=== PATIENT | male | born 1980 | race Caucasian/White ===

== ENCOUNTER → 2020-08-29 09:14 | Outpatient (BNVA) | payer MEDICAID, SELFPAY | PROVIDERS: PCP Internal Medicine; Referring Provider Internal Medicine; Visit Provider Physician Assistant | DX: Z76.89 Persons encountering health services in other specified circumstances (principal) ==

== ENCOUNTER 2020-09-06 07:36 | Outpatient (REF) | payer MEDICAID, SELFPAY ==
[2020-09-06 10:58] LABS: Alanine Aminotransferase 34 U/L (0-40); Albumin Level 4.3 g/dL (3.5-5.0); Alkaline Phosphatase 72 U/L (39-117); Anion Gap 10 (12-20); Aspartate Amino Transferase 21 U/L (5-37); Bilirubin Total 0.9 mg/dL (0.0-1.0); Blood Urea Nitrogen 20 mg/dL (9-16); Calcium 8.9 mg/dL (8.4-10.2); Carbon Dioxide 27 mmol/L (22-29); Chloride 107 mmol/L (96-108); Estimated Glomerular Filt Rate > 60; Glucose Random 98 mg/dL (60-115); Potassium 4.4 mmol/l (3.3-5.1); Rheumatoid Factor < 15.0 IU/mL (<15.0); Sodium 140 mmol/L (135-145); Total Protein 6.6 g/dL (6.5-8.0)
[2020-09-06 11:19] LABS: Thyroid Stimulating Hormone 0.61 uIU/mL (0.32-4.0)
[2020-09-06 11:28] LABS: Erythrocyte Sedimentation Rate 5 MM/HR (0-15)
[2020-09-08 11:47] LABS: CRP High Sensitivity 0.6 mg/L
== END 2020-09-06 07:37 | disposition home or self-care (01) ==
LOC: HO.WFDLDS 07:36
PROVIDERS: Visit Provider Physician Assistant
DX: Z20.828 Contact with and (suspected) exposure to other viral communicable diseases (principal); R19.7 Diarrhea, unspecified; R10.11 Right upper quadrant pain; M25.50 Pain in unspecified joint; K59.09 Other constipation
CPT/HCPCS: 36415; 80053; 84443; 85652; 86141; 86431; C9803; U0003

== ENCOUNTER 2020-09-19 09:45 | Outpatient (REF) | payer MEDICAID, SELFPAY ==
--- NOTE | 2020-09-19 10:11 | FL_ITS ---
EXAMINATION: XR GI SERIES CLINICAL INFORMATION: Epigastric pain. COMPARISON: None. TECHNIQUE: Routine upper GI air-contrast study was performed in the upright and lying positions. FINDINGS: Following oral administration of thick barium and effervescent granules in upright views, there is normal propagation of bolus from the oral cavity through the pharynx and esophagus and into the stomach without any obstruction, narrowing or stricture. No laryngeal penetration or aspiration seen. No intrinsic lesion or extrinsic compression seen. On placing patient supine and prone lying, the course, caliber and peristalsis of the stomach are normal. There is increased secretion and flocculation of barium with mucosal irregularity throughout the stomach, likely from hyperacidity. No ulceration seen. The duodenal bulb and the C-loop are normal in their course and caliber. The mucosal pattern of the duodenum is normal. No gastroesophageal reflux or hiatal hernia seen. There are surgical logan along the anterior midline lower chest wall, likely from benign tumor resection. FLUOROSCOPY TIME: 1.9 minutes DOSE AREA PRODUCT: 63.2 uGy-m2 (microgray-meter squared) FL/FL upper GI series IMPRESSION: Significant hyperacidity with secretions and flocculation of barium but no evidence of gastric or duodenal erosion or ulceration. No gastroesophageal reflux or hiatal hernia seen.
== END 2020-09-19 09:46 | disposition home or self-care (01) ==
LOC: HO.XRAY 09:45
PROVIDERS: PCP Internal Medicine; Visit Provider Physician Assistant
DX: R10.13 Epigastric pain (principal)
CPT/HCPCS: 74240

== ENCOUNTER → 2020-10-03 15:18 | Outpatient (BNVA) | payer MEDICAID, SELFPAY | PROVIDERS: PCP Internal Medicine; Visit Provider Physician Assistant | DX: Z76.89 Persons encountering health services in other specified circumstances (principal) ==

== ENCOUNTER 2020-10-08 09:47 | Day surgery (SDC) | payer MEDICAID, SELFPAY ==
[2020-10-08 10:46] VITALS: BP 134/87; PULSE 72; RESP 18; TEMP 36.4; O2SAT 100; BMI 38.3
[2020-10-08] MEDS: Lactated Ringers 1,000 ML 50 ML IVCONT (11:01)
--- NOTE | 2020-10-08 11:03 | MHC.SHP ---
Pre-Procedural Eval Section B Chief Complaint: epigastric pain Relevant Family History (Specify if Yes): No Relevant Social History: None Present Medications: see Short Stay Collaborative assessment Medical History: Significant History (Chronic recurrent pilonidal cyst Epigastric abdominal pain Joint pain Stomach tumor (benign)) History of Previous Operations: No relevant previous surgery Allergies: Allergies Allergy/AdvReac Type Severity Reaction Status Date / Time No Known Allergies Allergy Verified 10/08/20 10:43 [No Known Allergies*] Review of Systems Sugical H&P ROS: Negative: Constitution, Cardiovascular, Respiratory, Neurological, Psychiatric, Hem-Onc, Allergic/Immunologic, Gastrointestinal, Genitourinary, Musculoskeletal, Integumentary, Endocrine and Eyes/Ears/Nose/Throat Exam Surgical H&P Exam: Normal: HEENT, Normal: Heart, Normal: Lungs, Normal: Extremities, Normal: Abdomen, Normal: Skin and Normal: Neurological Plan Diagnosis/Plan: Unchanged I have reviewed the history and physical and performed a pertinent physical examination on my patient. No changes have occurred unless specified.
--- NOTE | 2020-10-08 11:58 | P.CONAN_ITS ---
[facility] Past Medical History Medical History Chronic recurrent pilonidal cyst Epigastric abdominal pain Joint pain Stomach tumor (benign) Family History Family History Father No problems noted. Mother Diabetes Social History Social History Household Members: Spouse and Children Alcohol intake: never Smoking Status: Never smoker Use of substances other than those prescribed or required for medical reasons: No Advance Directives: No Advance Directives Information Provided: No 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al status: unemployed Meds Allergies Allergy/AdvReac Type Severity Reaction Status Date / Time No Known Allergies Allergy Verified 10/08/20 10:43 [No Known Allergies*] Home Medications Medication Instructions Recorded Confirmed Type escitalopram oxalate 5 mg tablet 5 mg PO DAILY 08/29/20 08/29/20 History Exam Exam Date and Time: October 08, 2020 1158 Height,Weight and Vital Signs: Height 5 ft 7 in Weight 111.13 kg Last Vital Signs Temp 97.5 F 10/08/20 10:46 Pulse 72 10/08/20 10:46 Resp 18 10/08/20 10:46 BP 134/87 10/08/20 10:46 Pulse Ox 100 10/08/20 10:46 Airway Mallampati Class: II TM Dist: >3cm Neck ROM: Full Loose/Missing/Broken Teeth: No Heart: RRR Lungs: CTA Assessment and Plan Assessment Anesthesia Assessment: Anesthesia Plan Discussed and Chart Reviewed Final Anesthetic Review NPO: Yes ASA Class: II Final Preanesthetic Review: Meds/Allgs Chart Reviewed, Consent Obtained/Reviewed and Anes Risks/Benef Reviewed Patient Risk: Low Procedure Risk: Intermediate Anesthetic Plan Anesthetic Plan: MAC: Disposition: Standard PACU
--- NOTE | 2020-10-08 12:20 | PM.OP ---
Brief Operative Note Date of Service: 10/08/20 Pre-op diagnosis: epigastric pain Post-op diagnosis: same Procedure: Procedure Description: EGD FLEXIBLE TRANSORAL UPPER GASTROINTESTINAL ENDOSCOPY UPPER ENDOSCOPY Consent: Indications for the procedure and potential complications of bleeding, perforation, reaction to medications and missed diagnosis were discussed with the patient and informed consent was obtained. Instrument: Olympus GIF H 190 J mid size upper endoscope Monitoring: Vital signs and clinical assessment, continuous EKG monitoring, Pulse oximetry, Carbon Dioxide monitoring and blood pressure monitoring were done throughout the procedure. Procedure: The patient was placed in the left lateral decubitis position and pre-procedure medications were administered and a bite block was placed. The endoscope was inserted into the mouth and advanced under direct vision to the third part of duodenum. A careful inspection was made as the upper endoscope was withdrawn including a retroflexed examination of the proximal stomach; Findings and interventions are described below. Findings: Larynx:normal Esophagus: GE junction at 40 cm, diaphragm hiatus at 40 cm, erosive esophagitis LA grade B, one tongue of salmon pink tissue suspected barretts, bx taken. LEs very lax. Stomach: Patchy gastric erythema. Biopsies were obtained. Grade 3 flap valve on retroflexed examination of the cardia. Duodenum: bulbar duodenitis with villous atrophy probably from peptic injury, bx taken, second part of duodenum looked normal, bulb was quite long Intervention: Biopsies as noted above Impression/Findings: possible barretts erosive esophagitis lax LES duodenitis PLAN: reflux precautions, incl lifestyle and diet changes PPI-if already taking then change or increase dose, check for compliance if h pylori pos then treat Surgeon: Heather Alvarez MD Anesthesia: MAC Estimated blood loss (mL): 0 Condition: stable Disposition: PACU
[2020-10-08 12:25] VITALS: BP 93/44; PULSE 88; RESP 22; TEMP 36.7; O2SAT 99
[2020-10-08 12:40] VITALS: BP 96/45; PULSE 76; RESP 20; O2SAT 100
[2020-10-08 12:54] VITALS: BP 105/55; PULSE 87; RESP 20; O2SAT 97
--- NOTE | 2020-10-08 12:57 | HO.POSTANES ---
Post Anesthesia Evaluation Post Anesthesia Evaluation Vital Signs: Vital Signs Temp Pulse Resp BP Pulse Ox 10/08/20 12:54 87 20 105/55 L 97 10/08/20 12:40 76 20 96/45 L 100 10/08/20 12:25 98.0 F 88 22 H 93/44 L 99 10/08/20 10:46 97.5 F 72 18 134/87 100 Anesthesia: Monitored Mental Status: Awake Pain Control: Satisfactory Nausea/Vomiting: None Hydration: Adequate Anesthesia-Related Issues: No Anes. Related Issues
== END 2020-10-08 13:17 | disposition home or self-care (01) ==
PROVIDERS: Visit Provider Internal Medicine Gastroenterology
PROC: 0DJ08ZZ Inspection of Upper Intestinal Tract, Via Natural or Artificial Opening Endoscopic (ICD-10-PCS; CPT 43235; principal; 2020-10-08 12:20)
DX: K21.00 Gastro-esophageal reflux disease with esophagitis, without bleeding (principal); K29.50 Unspecified chronic gastritis without bleeding; K29.80 Duodenitis without bleeding; K44.9 Diaphragmatic hernia without obstruction or gangrene; Z79.899 Other long term (current) drug therapy
CPT/HCPCS: 43239; 88305; 88342

== ENCOUNTER → 2020-10-22 14:21 | Outpatient (BNVA) | payer MEDICAID, SELFPAY | PROVIDERS: Visit Provider Physician Assistant ==

== ENCOUNTER 2020-10-26 11:21 | Outpatient (REF) | payer MEDICAID, SELFPAY ==
[2020-10-26 16:20] LABS: Rheumatoid Factor < 15.0 IU/mL (<15.0); Uric Acid 5.3 mg/dL (3.4-7.0)
[2020-10-26 16:40] LABS: Ferritin 66 ng/mL (20-250)
[2020-10-26 16:46] LABS: Erythrocyte Sedimentation Rate 7 MM/HR (0-15)
[2020-10-27 08:17] LABS: Lyme Abs Screen <0.90 index
[2020-10-27 20:52] LABS: Anti Nuclear Antibody Screen NEGATIVE (NEGATIVE)
== END 2020-10-26 11:22 | disposition home or self-care (01) ==
LOC: HO.WFDLDS 11:21
PROVIDERS: Visit Provider Internal Medicine
DX: M13.0 Polyarthritis, unspecified (principal)
CPT/HCPCS: 36415; 82728; 84550; 85652; 86038; 86039; 86140; 86431; 86618

== ENCOUNTER → 2020-10-30 13:36 | Outpatient (BNVA) | payer MEDICAID, SELFPAY | PROVIDERS: PCP Internal Medicine; Visit Provider Internal Medicine Gastroenterology | DX: Z11.0 Encounter for screening for intestinal infectious diseases (principal) | CPT/HCPCS: 83013; 99211 ==

== ENCOUNTER 2020-11-28 07:07 | Outpatient (REF) | payer MEDICAID, SELFPAY ==
[2020-11-28 11:19] LABS: MANUAL DIFF FLAG NO
[2020-11-28 11:34] LABS: Basophils Absolute Auto 0.1 X10*3/uL (0.0-0.2); Basophils Percent Auto 0.8 % (0-2); Eosinophils Absolute Auto 0.3 X10*3/uL (0.0-0.4); Eosinophils Percent Auto 3.1 % (0-4); Hematocrit 42.1 % (42-52); Hemoglobin 14.5 g/dl (14.0-18.0); Imm Gran Abs Auto 0.03 X10*3/uL (0.00-0.03); Imm Gran Pct Auto 0.4 % (0.0-0.4); Lymphocytes Absolute Auto 1.7 X10*3/uL (1.2-4.9); Lymphocytes Percent Auto 20.1 % (20-40); Mean Corpuscular HGB Conc 34.4 g/dl (31.0-36.0); Mean Corpuscular Hemoglobin 30.9 pg (27.0-33.0); Mean Corpuscular Volume 89.6 fL (80-98); Mean Platelet Volume 10.9 fL (9.4-12.4); Monocytes Absolute Auto 0.7 X10*3/uL (0.1-1.2); Monocytes Percent Auto 8.7 % (2-11); Neutrophils Absolute Auto 5.6 X10*3/uL (2.0-8.3); Neutrophils Percent Auto 66.9 % (45-73); Platelet Count 198 X10*3/uL (160-400); White Blood Count 8.3 X10*3/uL (4.8-10.8)
== END 2020-11-28 07:08 | disposition home or self-care (01) ==
LOC: HO.WFDLDS 07:07
PROVIDERS: Visit Provider Physician Assistant
DX: K62.5 Hemorrhage of anus and rectum (principal); R74.01 Elevation of levels of liver transaminase levels
CPT/HCPCS: 36415; 85025

== ENCOUNTER → 2020-12-04 11:12 | Outpatient (BNVA) | payer MEDICAID, SELFPAY | PROVIDERS: PCP Internal Medicine; Visit Provider Physician Assistant ==

== ENCOUNTER 2020-12-17 12:25 | Day surgery (SDC) | payer MEDICAID, SELFPAY ==
--- NOTE | 2020-12-14 10:22 | HO.ANESPROP2 ---
Documented by User: Ann Ng 12/14/20 10:23 HPI - Anesthesia Eval Consult details Narrative: 40yo M for Colonoscopy s/p EGD with MAC 10/2020 [facility] Active Problems Active Problems: All Active Problems (Updated 12/04/20 @ 11:47 by Yuli [place] PA-C) Rectal bleeding (Acute) Periumbilical pain (Acute) Joint pain (Acute) Epigastric abdominal pain (Acute) Past Medical History Medical History (Updated 12/17/20 @ 13:17 by Ana Luisa Ocampo) Anxiety and depression Chronic recurrent pilonidal cyst Epigastric abdominal pain GERD (gastroesophageal reflux disease) Joint pain Stomach tumor (benign) Family History Family History Father No problems noted. Mother Diabetes Surgical History Surgical History History of esophagogastroduodenoscopy (EGD) Social History Social History Household Members: Spouse and Children Alcohol intake: never Smoking Status: Never smoker Use of substances other than those prescribed or required for medical reasons: No Have you been hit, kicked, punched, or otherwise hurt by someone within the past year? If so, by whom?: No Advance Directives: No Advance Directives Information Provided: Yes 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al status: unemployed Meds Allergies Allergy/AdvReac Type Severity Reaction Status Date / Time No Known Allergies Allergy Verified 12/11/20 11:56 [No Known Allergies*] Home Medications Medication Instructions Recorded Confirmed Last Taken Type escitalopram oxalate 5 mg tablet 5 mg PO DAILY 08/29/20 12/11/20 Unknown History Exam Exam Date and Time: December 14, 2020 1022 Pertinent Lab Results Pertinent Lab Results: Laboratory Tests 09/06/20 11/28/20 06:30 07:15 WBC 8.3 Hgb 14.5 Hct 42.1 Plt Count 198 Sodium 140 Potassium 4.4 Chloride 107 Carbon Dioxide 27 BUN 20 H Creatinine 1.29 Assessment and Plan Assessment Anesthesia Assessment: Chart Reviewed Documented by User: Ana Luisa Ocampo 12/17/20 13:18 [facility] Past Medical History Medical History (Updated 12/17/20 @ 13:17 by An aLuisa Ocampo) Anxiety and depression Chronic recurrent pilonidal cyst Epigastric abdominal pain GERD (gastroesophageal reflux disease) Joint pain Stomach tumor (benign) Family History Family History Father No problems noted. Mother Diabetes Family history of problems with anesthesia: No Surgical History Surgical History History of esophagogastroduodenoscopy (EGD) History of Problems with Anesthesia: No Social History Social History Household Members: Spouse and Children Alcohol intake: never Smoking Status: Never smoker Use of substances other than those prescribed or required for medical reasons: No Have you been hit, kicked, punched, or otherwise hurt by someone within the past year? If so, by whom?: No Advance Directives: No Advance Directives Information Provided: Yes 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al status: unemployed Meds Allergies Allergy/AdvReac Type Severity Reaction Status Date / Time No Known Allergies Allergy Verified 12/11/20 11:56 [No Known Allergies*] Home Medications Medication Instructions Recorded Confirmed Last Taken Type escitalopram oxalate 5 mg tablet 5 mg PO DAILY 08/29/20 12/11/20 Unknown History Exam Height,Weight and Vital Signs: Vital Signs Temp Pulse Resp BP Pulse Ox 12/17/20 12:40 97.6 F 85 18 139/58 L 97 Airway Mallampati Class: II TM Dist: >3cm Neck ROM: Full Heart: RRR Lungs: CTAB Assessment and Plan Assessment Anesthesia Assessment: Anesthesia Plan Discussed and Chart Reviewed Final Anesthetic Review NPO: Yes ASA Class: II Final Preanesthetic Review: No Changes in Pt Med Stat, Meds/Allgs Chart Reviewed, Consent Obtained/Reviewed and Anes Risks/Benef Reviewed Patient Risk: Low Procedure Risk: Low Assessment/Block/Sedation in SS: Assess/Block/Sedation-SS Anesthetic Plan Anesthetic Plan: MAC: Disposition: Standard PACU
[2020-12-17 12:39] VITALS: BMI 36.8
[2020-12-17 12:40] VITALS: BP 139/58; PULSE 85; RESP 18; TEMP 36.4; O2SAT 97
[2020-12-17] MEDS: Lactated Ringers 1,000 ML 100 ML IVCONT (12:55)
--- NOTE | 2020-12-17 13:48 | P.HPSUR_ITS ---
Pre-Procedural Eval Section B Chief Complaint: rectal bleeding,periumbilical pain Relevant Family History (Specify if Yes): No Relevant Social History: None Present Medications: see Short Stay Collaborative assessment Medical History: Significant History (Anxiety and depression Chronic recurrent pilonidal cyst Epigastric abdominal pain GERD (gastroesophageal reflux disease) Joint pain Stomach tumor (benign)) History of Previous Operations: Relevant previous surgery/procedure and date(s) (egd) Allergies: Allergies Allergy/AdvReac Type Severity Reaction Status Date / Time No Known Allergies Allergy Verified 12/11/20 11:56 [No Known Allergies*] Review of Systems Sugical H&P ROS: Negative: Constitution, Cardiovascular, Respiratory, Neurological, Psychiatric, Hem-Onc, Allergic/Immunologic, Gastrointestinal, Genitourinary, Musculoskeletal, Integumentary, Endocrine and Eyes /Ears/Nose/Throat Exam Surgical H&P Exam: Normal: HEENT, Normal: Heart, Normal: Lungs, Normal: Extremities, Normal: Abdomen, Normal: Skin and Normal: Neurological Plan Diagnosis/Plan: Unchanged I have reviewed the history and physical and performed a pertinent physical examination on my patient. No changes have occurred unless specified.
--- NOTE | 2020-12-17 13:50 | PM.OP ---
Brief Operative Note Date of Service: 12/17/20 Pre-op diagnosis: rectal bleeding Post-op diagnosis: same Procedure: see op note Surgeon: Heather Alvarez MD Anesthesia: MAC Estimated blood loss (mL): 0 Condition: stable Disposition: PACU
--- NOTE | 2020-12-17 13:50 | W.PM.OPN ---
Operative Note Operative Note Date of Service: 12/17/20 Narrative: Operative Information Procedure Description: Colonoscopy COLONOSCOPY Instrument: Olympus variable stiffness pediatric scope 190L Colonoscopy Monitoring: Vital signs and clinical assessment, continuous EKG monitoring, Pulse oximetry, Carbon Dioxide monitoring and blood pressure monitoring were done throughout the procedure. Colon withdrawal time was 8 minutes. Procedure: The patient was placed in the left lateral decubitis position and pre-procedure medications were administered. After a digital rectal examination of the ano-rectum, the video colonoscope was inserted into the rectum and advanced through the colon to the cecum/TI. The colonoscope was slowly withdrawn in a retrograde panoramic fashion and the colon mucosa was carefully examined including a retroflexed view of the rectum. Findings and interventions are described below. Procedure Difficulty:easy Findings: Terminal Ileum-normal Cecum:normal Ascending Colon: on retroflexion 10 mm sessile polyp removed with cold snare but not retrieved. Transverse Colon -normal Descending Colon:normal Sigmoid Colon: 12-14 mm pedunculated polyp removed with cold snare and then 1 clip applied to post polypectomy site with cessation of bleeding Rectum: Retroflexion with small internal hemorrhoids, grade I Anorectum - normal Colon preparation: [place] Bowel Preparation Scale Right colon; 2 Transverse colon: 3 Left colon; 2 (0 = Unprepared colon segment with mucosa not seen due to solid stool that cannot be cleared. 1 = Portion of mucosa of the colon segment seen, but other areas of the colon segment not well seen due to staining, residual stool and/or opaque liquid. 2 = Minor amount of residual staining, small fragments of stool and/or opaque liquid, but mucosa of colon segment seen well. 3 = Entire mucosa of colon segment seen well with no residual staining, small fragments of stool or opaque liquid) Impression and Post Procedure Diagnosis: polyps internal hemorrhoids Plan: High fiber diet leaflet Avoid straining at stool, epsom salts and sitz bath, anusol supps or cream as needed Repeat Colonoscopy in 1-2 years or earlier if clinically indicated Above findings were reviewed with the patient and relevant handouts were provided if indicated.
[2020-12-17 14:25] VITALS: BP 98/51; PULSE 83; RESP 16; TEMP 36.4; O2SAT 100
[2020-12-17 14:40] VITALS: BP 119/75; PULSE 88; RESP 18; O2SAT 99
[2020-12-17 14:54] VITALS: TEMP 36.6
== END 2020-12-17 15:09 | disposition home or self-care (01) ==
PROVIDERS: PCP Internal Medicine; Visit Provider Internal Medicine Gastroenterology
PROC: 0DJD8ZZ Inspection of Lower Intestinal Tract, Via Natural or Artificial Opening Endoscopic (ICD-10-PCS; CPT 45378; principal; 2020-12-17 13:10)
DX: K62.5 Hemorrhage of anus and rectum (principal); D12.5 Benign neoplasm of sigmoid colon; K63.5 Polyp of colon; K64.0 First degree hemorrhoids; K21.9 Gastro-esophageal reflux disease without esophagitis; Z79.899 Other long term (current) drug therapy
CPT/HCPCS: 45385; 88305

== ENCOUNTER → 2021-01-07 11:27 | Outpatient (BNVA) | payer MEDICAID, SELFPAY | PROVIDERS: PCP Internal Medicine; Visit Provider Physician Assistant ==

== ENCOUNTER 2021-01-29 12:29 | Outpatient (REF) | payer MEDICAID, SELFPAY ==
--- NOTE | ~2021-01-29 | XR_ITS ---
EXAMINATION: 1. RADIOGRAPHS LEFT SHOULDER 2. RADIOGRAPHS LUMBAR SPINE CLINICAL INFORMATION: Pain COMPARISON: None TECHNIQUE: 4 views of the left shoulder and 3 views of the lumbar spine were obtained FINDINGS: Left shoulder: Visualized portions of the proximal left humerus demonstrate no fracture. Humeral head demonstrates good articulation with the glenoid fossa. Acromioclavicular joint is normal in appearance without appreciable degenerative changes. Visualized left-sided ribs and lung parenchyma are unremarkable. Lumbar spine: There are 4 nonrib-bearing lumbar-type vertebral bodies are visualized. Normal alignment of the lumbar spine. Vertebral body heights and disc spaces are maintained throughout the lumbar spine. Sacroiliac joints are symmetric. Surgical clips project over the mid upper abdomen. XR/XR lumbar spine 2-3V IMPRESSION: 1. Unremarkable radiographs of the left shoulder. 2. Unremarkable radiograph of the lumbar spine.
--- NOTE | ~2021-01-29 | XR_ITS ---
EXAMINATION: 1. RADIOGRAPHS LEFT SHOULDER 2. RADIOGRAPHS LUMBAR SPINE CLINICAL INFORMATION: Pain COMPARISON: None TECHNIQUE: 4 views of the left shoulder and 3 views of the lumbar spine were obtained FINDINGS: Left shoulder: Visualized portions of the proximal left humerus demonstrate no fracture. Humeral head demonstrates good articulation with the glenoid fossa. Acromioclavicular joint is normal in appearance without appreciable degenerative changes. Visualized left-sided ribs and lung parenchyma are unremarkable. Lumbar spine: There are 4 nonrib-bearing lumbar-type vertebral bodies are visualized. Normal alignment of the lumbar spine. Vertebral body heights and disc spaces are maintained throughout the lumbar spine. Sacroiliac joints are symmetric. Surgical clips project over the mid upper abdomen. XR/XR shoulder LT min 2V IMPRESSION: 1. Unremarkable radiographs of the left shoulder. 2. Unremarkable radiograph of the lumbar spine.
[2021-01-30 09:36] LABS: Lyme Abs Screen <0.90 index
[2021-01-30 12:56] LABS: Cyclic Citrullinated Peptide <16 UNITS
[2021-02-04 12:47] LABS: Vitamin D 25-OH, D2 <4 ng/mL; Vitamin D 25-OH, D3 15 ng/mL; Vitamin D 25-OH, Total 15 ng/mL (30-100)
== END 2021-01-29 12:30 | disposition home or self-care (01) ==
LOC: HO.LAB 12:29
PROVIDERS: PCP Internal Medicine; Visit Provider Student in an Organized Health Care Education/Training Program
DX: M25.50 Pain in unspecified joint (principal); M13.0 Polyarthritis, unspecified
CPT/HCPCS: 36415; 72100; 73030; 82306; 86200; 86617; 86618; 99202

== ENCOUNTER → 2021-03-01 08:57 | Outpatient (BNVA) | payer MEDICAID, SELFPAY | PROVIDERS: PCP Internal Medicine; Visit Provider Surgery | DX: D17.1 Benign lipomatous neoplasm of skin and subcutaneous tissue of trunk (principal) | CPT/HCPCS: 99202 ==

== ENCOUNTER → 2021-03-07 15:38 | Outpatient (BNVA) | payer MEDICAID, SELFPAY | PROVIDERS: Visit Provider Student in an Organized Health Care Education/Training Program | DX: M25.50 Pain in unspecified joint (principal) | CPT/HCPCS: 99212 ==

== ENCOUNTER 2021-03-21 07:49 | Outpatient (REF) | payer MEDICAID, SELFPAY ==
[2021-03-21 07:54] VITALS: BMI 36.8
[2021-03-21 07:55] VITALS: BP 135/65; PULSE 88; RESP 16; TEMP 36.4; O2SAT 99
--- NOTE | 2021-03-21 09:00 | MHC.SHP ---
Pre-Procedural Eval Section A The patient is an INPATIENT: No Changes since office visit: No Cold of Flu in the past 2 weeks, No New Medical Problems, No Changes in Medication and No Patient answered all questions The History & Physical has been completed within 30 days and I have reviewed it.: Yes Section B Chief Complaint: Lipoma of Back Allergies: Allergies Allergy/AdvReac Type Severity Reaction Status Date / Time No Known Allergies Allergy Verified 03/07/21 15:51 [No Known Allergies*] Plan Diagnosis/Plan: Unchanged I have reviewed the history and physical and performed a pertinent physical examination on my patient. No changes have occurred unless specified.
--- NOTE | 2021-03-21 09:01 | W.PM.OPN ---
Operative Note Operative Note Date of Service: 03/21/21 Narrative: Preoperative diagnosis: Lipoma left lower back Postoperative diagnosis: Same Procedure: Excision of lipoma left lower back Surgeon: Davey Man MD Chicken Boner: No physician Anesthesia: Local Indications for procedure: 40-year-old male patient with a painful lump in the lower back and previous history of lipomas. On examination patient has a 2 cm round soft tissue mass mobile within the subcutaneous tissue suggestive of a lipoma. Operative findings: 1.5 cm round fatty collections suggestive of a lipoma Specimen: Lipoma left lower back Estimated blood loss: 2 mL Complications: None Procedure details: Patient was brought to the minor surgery suite and placed in a prone position. The site of surgery was confirmed by the patient and informed consent confirmed. Skin was then prepped with Betadine and draped in a sterile fashion. Local anesthesia consisting of lidocaine 1% with epinephrine was infiltrated in a transverse fashion directly over the lipoma. A transverse incision was then created with scalpel carried down through subcutaneous tissue up to the upper surface of the lipoma. Blunt dissection was then used to free the lipoma from the surrounding subcutaneous tissue. A 1.5 cm lipoma was identified. This was completely removed and sent to pathology for further examination. Light pressure was held to maintain hemostasis. Deep subcutaneous tissue was then closed using interrupted 3-0 Polysorb sutures. Dermis was closed using interrupted 3-0 Polysorb sutures. Skin was closed using a running subcuticular 4-0 Polysorb suture. The patient tolerated the procedure well and was discharged to home in stable condition.
== END 2021-03-21 07:50 | disposition home or self-care (01) ==
LOC: HO.MS 07:49
PROVIDERS: PCP Internal Medicine; Visit Provider Surgery
PROC: (CPT 21930; principal; 2021-03-21 08:00)
DX: D17.1 Benign lipomatous neoplasm of skin and subcutaneous tissue of trunk (principal)
CPT/HCPCS: 21930; 88304

== ENCOUNTER → 2021-03-29 09:20 | Outpatient (BNVA) | payer MEDICAID, SELFPAY | PROVIDERS: PCP Internal Medicine; Visit Provider Surgery | DX: Z48.3 Aftercare following surgery for neoplasm (principal); Z86.018 Personal history of other benign neoplasm | CPT/HCPCS: 99212 ==

== ENCOUNTER 2021-05-06 07:23 | Outpatient (REF) | payer MEDICAID, SELFPAY | END 2021-05-06 07:24 | disposition home or self-care (01) | LOC: HO.WFDLDS 07:23 | PROVIDERS: Visit Provider Internal Medicine | DX: Z20.822 Contact with and (suspected) exposure to COVID-19 (principal) | CPT/HCPCS: C9803; U0003; U0005 ==

== ENCOUNTER 2021-07-25 08:43 | Outpatient (REF) | payer MEDICAID, SELFPAY ==
[2021-07-25 14:07] LABS: MANUAL DIFF FLAG NO
[2021-07-25 14:10] LABS: Basophils Percent Auto 0.5 % (0-2); Eosinophils Absolute Auto 0.2 X10*3/uL (0.0-0.4); Eosinophils Percent Auto 2.6 % (0-4); Hematocrit 42.2 % (42-52); Hemoglobin 14.4 g/dl (14.0-18.0); Imm Gran Abs Auto 0.03 X10*3/uL (0.00-0.03); Imm Gran Pct Auto 0.4 % (0.0-0.4); Lymphocytes Absolute Auto 2.3 X10*3/uL (1.2-4.9); Lymphocytes Percent Auto 28.6 % (20-40); Mean Corpuscular HGB Conc 34.1 g/dl (31.0-36.0); Mean Corpuscular Volume 90.9 fL (80-98); Mean Platelet Volume 10.4 fL (9.4-12.4); Monocytes Absolute Auto 0.8 X10*3/uL (0.1-1.2); Monocytes Percent Auto 10.3 % (2-11); Neutrophils Absolute Auto 4.6 X10*3/uL (2.0-8.3); Neutrophils Percent Auto 57.6 % (45-73); Platelet Count 210 X10*3/uL (160-400); Red Blood Count 4.64 X10*6/uL (4.60-5.80); Red Cell Distribution Width 12.3 % (11.0-16.0)
[2021-07-25 14:17] LABS: Appearance Urine CLEAR; Color Urine YELLOW; Glucose Urine UA NEG (NEG); Leukocyte Esterase Urine NEG (NEG); Nitrite Urine NEG (NEG); Specific Gravity - Urine >= 1.030 (1.005-1.025); Urine Blood NEG (NEG); Urine Ketones NEG (NEG); Urine Protein NEG (NEG-TRACE)
[2021-07-25 14:31] LABS: RBC Urine 0 /HPF (0); Squamous Epithelial Cell Urine TRACE /LPF; WBC Urine 0 /HPF (0-4)
[2021-07-25 14:32] LABS: Mucus Urine TRACE /LPF
[2021-07-25 14:35] LABS: Alanine Aminotransferase 31 U/L (0-40); Albumin Level 4.5 g/dL (3.5-5.0); Alkaline Phosphatase 74 U/L (39-117); Anion Gap 10 (12-20); Aspartate Amino Transferase 22 U/L (5-37); Bilirubin Total 0.7 mg/dL (0.0-1.0); Blood Urea Nitrogen 13 mg/dL (9-16); Calcium 9.4 mg/dL (8.4-10.2); Carbon Dioxide 28 mmol/L (22-29); Chloride 107 mmol/L (96-108); Estimated Glomerular Filt Rate > 60; Glucose Fasting 86 mg/dL (60-99); Potassium 4.4 mmol/L (3.3-5.1); Sodium 141 mmol/L (135-145); Total Protein 6.8 g/dL (6.5-8.0)
[2021-07-25 14:42] LABS: Estimated Average Glucose 103 mg/dL; Hemoglobin A1c % 5.2 %
[2021-07-25 14:56] LABS: Prostate Specific Antigen 1.72 ng/mL (<0.05-4.0)
[2021-07-25 15:16] LABS: Folate 8.8 ng/mL (> or = 4.0); Vitamin B12 353 pg/mL (200-900)
[2021-07-30 14:27] LABS: Testosterone, Free 77.7 pg/mL (35.0-155.0); Testosterone, Total 617 ng/dL (250-1100)
== END 2021-07-25 08:44 | disposition home or self-care (01) ==
LOC: HO.WFDLDS 08:43
PROVIDERS: Visit Provider Internal Medicine
DX: Z12.5 Encounter for screening for malignant neoplasm of prostate (principal); N52.9 Male erectile dysfunction, unspecified; R35.0 Frequency of micturition
CPT/HCPCS: 36415; 80053; 81001; 82607; 82746; 83036; 84153; 84402; 84403; 85025

== ENCOUNTER 2021-09-05 13:29 | Outpatient (REF) | payer MEDICAID, SELFPAY ==
--- NOTE | ~2021-09-05 | US_ITS ---
EXAMINATION: US RETROPERITONEAL COMPLETE (RENAL) CLINICAL INFORMATION: Frequency. COMPARISON: None. TECHNIQUE: Real-time imaging of the kidneys and bladder. FINDINGS: RIGHT KIDNEY: 11.4 x 6.2 x 5.9 cm (SAG x AP x TRV). The kidney is normal in size, contour, and echogenicity. Renal cortical thickness is normal. No calculi or focal parenchymal lesions. No hydronephrosis. LEFT KIDNEY: 11.9 x 6.2 x 5.0 cm (SAG x AP x TRV). The kidney is normal in size, contour, and echogenicity. Renal cortical thickness is normal. No calculi or focal parenchymal lesions. No hydronephrosis. BLADDER: Well distended and normal. Bilateral ureteral jets are demonstrated. Prevoid bladder volume is 321.9 mL. Postvoid bladder volume is 8.5 mL. ADDITIONAL FINDINGS: Prostate volume measures 14.0 mL. US/US retroperitoneal comp IMPRESSION: Unremarkable renal ultrasound. Tiny postvoid residual bladder volume. Prostate volume measures 14.0 mL.
== END 2021-09-05 13:30 | disposition home or self-care (01) ==
LOC: HO.US 13:29
PROVIDERS: PCP Internal Medicine; Visit Provider Internal Medicine
DX: R35.0 Frequency of micturition (principal)
CPT/HCPCS: 76770

== ENCOUNTER 2021-10-03 11:33 | Outpatient (REF) | payer MEDICAID, SELFPAY | END 2021-10-03 11:34 | disposition home or self-care (01) | LOC: HO.WFDLDS 11:33 | PROVIDERS: Visit Provider Internal Medicine | DX: Z20.822 Contact with and (suspected) exposure to COVID-19 (principal) | CPT/HCPCS: C9803; U0003; U0005 ==

== ENCOUNTER 2021-12-21 09:57 | Outpatient (REF) | payer MEDICAID, SELFPAY ==
--- NOTE | ~2021-12-21 | XR_ITS ---
EXAMINATION: XR LUMBOSACRAL SPINE WITH OBLIQUES CLINICAL INFORMATION: Low back pain COMPARISON: Previous x-ray January 2021 TECHNIQUE: AP, both oblique, and lateral views of the lumbar spine. Lateral view of the lumbosacral junction. FINDINGS: Bone alignment is normal. No fracture or dislocation is seen. There are 4 nonrib-bearing lumbar-type vertebral bodies. Disc spaces are normal. Facet joints are normal. There are surgical clips that projectover the left upper quadrant. XR/XR lumbar spine 4V min IMPRESSION: Unremarkable examination.
== END 2021-12-21 09:58 | disposition home or self-care (01) ==
LOC: HO.HMGCX 09:57
PROVIDERS: Visit Provider Internal Medicine
DX: M54.50 Low back pain, unspecified (principal)
CPT/HCPCS: 72110

== ENCOUNTER → 2021-12-31 11:50 | Outpatient (BNVA) | payer MEDICAID, SELFPAY | PROVIDERS: PCP Internal Medicine; Visit Provider Physician Assistant | DX: K21.9 Gastro-esophageal reflux disease without esophagitis (principal); D12.6 Benign neoplasm of colon, unspecified; R14.0 Abdominal distension (gaseous) | CPT/HCPCS: 99212 ==

== ENCOUNTER 2022-03-03 10:55 | Emergency (ER) | payer MEDICAID, SELFPAY ==
--- NOTE | ~2022-03-03 | XR_ITS ---
EXAMINATION: XR ANKLE, RIGHT CLINICAL INFORMATION: Clinical pain. COMPARISON: None TECHNIQUE: AP, lateral, and mortise views of the right ankle. FINDINGS: There is no acute fracture or dislocation. Minimal tibiotalar degenerative joint changes are seen. A corticated osseous density seen subjacent to the medial malleolus. The tarsal bones are normally aligned. There is a small retrocalcaneal spur. The soft tissues are unremarkable. XR/XR ankle RT min 3V IMPRESSION: Degenerative changes as detailed above without overt acute osseous abnormality.
--- NOTE | ~2022-03-03 | XR_ITS ---
EXAMINATION: XR FOOT, RIGHT CLINICAL INFORMATION: Pain. COMPARISON: Right ankle radiographs dated 03/03/2022. TECHNIQUE: AP, lateral, and oblique views of the right foot. FINDINGS: No acute fracture or dislocation. No joint space narrowing or marginal osteophytes. No osseous erosion. Small dorsal calcaneal spur. XR/XR foot RT 2V IMPRESSION: No acute osseous abnormality. Small dorsal calcaneal spur.
[2022-03-03 11:09] VITALS: BP 115/67; PULSE 84; RESP 16; TEMP 36.2; O2SAT 98; BMI 38.3
--- NOTE | 2022-03-03 11:30 | ED.GENADULT ---
HPI - General Adult General Chief complaint: Extremity Injury, Lower Stated complaint: R Ankle Pain No Injury Time Seen by Provider: 03/03/22 11:20 Source: patient Mode of arrival: ambulatory Limitations: no limitations History of Present Illness HPI narrative: Patient is a 41 year old male presenting to the emergency department today with right foot and ankle pain. Patient states that he has been having increasing pain of his right ankle and right foot over the last few days. Patient denies any dizziness, lightheadedness, abdominal pain, nausea, vomiting, fever, chills, blurry vision, double vision, loss of vision, chest pain, difficulty breathing, shortness of breath, back pain, night sweats, pain with urination, increased urinary frequency, increased urinary urgency, blood in his urine or stool, syncope or a near syncopal episode, recent trauma or falls, bowel incontinence, bladder incontinence, bowel retention, bladder retention, or any other complaints at this time. Onset (ago): day(s) Location: right and lower extremity Radiation: non-radiation Severity: mild Severity scale (1-10): 2 Quality: dull Pain Consistency: constant Relieving factors: none Exacerbating factors: none Associated symptoms: denies other symptoms Treatments prior to arrival: none Related Data Home Medications Medication Instructions Recorded Confirmed escitalopram oxalate 5 mg tablet 5 mg PO DAILY 08/29/20 03/29/21 (Lexapro) acetaminophen 650 mg 650 mg PO Q8H 01/29/21 03/29/21 tablet,extended release (Tylenol 8 Hour) mirtazapine 15 mg tablet (Remeron) 15 mg PO DAILY 01/29/21 03/29/21 carisoprodol 250 mg tablet (Soma) 250 mg PO BEDTIME 12/31/21 12/31/21 Previous Rx's Medication Instructions Recorded famotidine 40 mg tablet 40 mg PO DAILY #30 tab 12/31/21 famotidine 40 mg tablet 40 mg PO DAILY #30 tab 12/31/21 omeprazole 20 mg capsule,delayed 20 mg PO DAILY #30 cap 12/31/21 release omeprazole 20 mg capsule,delayed 20 mg PO DAILY #30 cap 12/31/21 release simethicone 125 mg chewable tablet 125 mg PO TID-QID PRN #90 tab 12/31/21 (Gas Relief (simethicone)) Allergies Allergy/AdvReac Type Severity Reaction Status Date / Time No Known Allergies Allergy Verified 12/31/21 11:54 [No Known Allergies*] Review of Systems Constitutional: Constitutional: Reports no additional constitutional complaints, Denies chills, Denies fever(s) and Denies night sweats Eyes: Eyes: Reports no additional eye complaints, Denies blurry vision, Denies change in vision, Denies diplopia, Denies eye discharge, Denies loss of vision and Denies eye pain ENT: Denies dizziness Cardiovascular: Cardiovascular: Reports no additional cardiovascular complaints, Denies chest pain, Denies lightheadedness, Denies Loss of Consciousness and Denies dyspnea Respiratory: Respiratory: Reports no additional respiratory complaints and Denies dyspnea Gastrointestinal: Gastrointestinal: Reports no additional gastrointestinal complaints, Denies abdominal pain, Denies melena, Denies hematochezia, Denies change in bowel habits and Denies change in stool character Genitourinary: Genitourinary: Reports no additional male genitourinary complaints, Denies hematuria, Denies oliguria, Denies difficulty urinating, Denies dysuria, Denies urinary frequency, Denies urinary hesitancy, Denies urinary incontinence and Denies urinary urgency Musculoskeletal: Musculoskeletal: Reports no additional musculoskeletal complaints, Denies numbness and Denies tingling Comments: right ankle pain and right foot pain Neurologic: Denies dizziness, Denies loss of vision, Denies numbness and Denies tingling Psychiatric: Psychiatric: Reports no additional psychiatric complaints Endocrine: Endocrine: Reports no additional endocrine complaints Hematologic/Lymphatic: Hematologic/Lymphatic: Reports no additional hematologic/lymphatic complaints Allergic/Immunologic: Allergic/Immunologic: Reports no additional allergic/immunologic complaints [facility] Past Medical History Attestation statement: The following information was validated with the patient. Source: old records reviewed Medical History Anxiety and depression Chronic recurrent pilonidal cyst Epigastric abdominal pain GERD (gastroesophageal reflux disease) Joint pain Stomach tumor (benign) Surgical History History of esophagogastroduodenoscopy (EGD) Hx of colonoscopy (~12/2020) Family History Family History Father Prostate cancer Mother Diabetes Maternal Grandmother Breast cancer Social History Social History Household Members: Spouse and Children Alcohol intake: never Substance Use Type: Marijuana Advance Directives: No Advance Directives Information Provided: No 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al status: unemployed Physical Exam ED Vital Signs: Vital Signs - 24 hr 03/03/22 11:09 Temperature 97.1 F Pulse Rate 84 Respiratory Rate 16 Blood Pressure 115/67 Pulse Oximetry 98 BMI result Body Mass Index 38.3 Const General: cooperative, no acute distress, alert and awake Nutritional Appearance: well nourished Orientation/consciousness: patient oriented x3 Limitations: no limitations HENMT Head: Yes normal to inspection and Yes atraumatic Ears: hearing grossly normal bilaterally and external ears normal General nose exam: Normal external nose present, no nasal discharge noted and no epistaxis Face and sinus: Yes normal facial exam, No abrasion and No laceration Mouth: Normal oral and palatal mucosa present, no drooling and no muffled voice Eyes General: appearance normal, both eyes and all related structures Periorbital: periorbital findings normal Eyelids: Yes eyelids normal Conjunctivae: conjunctivae normal Pupils: Equal, round and reactive pupils present EOM: EOMs intact bilaterally Neck Neck: Yes normal visual inspection, Yes full ROM and Yes no lymphadenopathy Chest Chest palpation & inspection: normal inspection of the chest Resp Effort & Inspection: normal respiratory effort and able to speak in complete sentences Auscultation: clear to auscultation bilaterally Cardio Rate: regular rate Rhythm: regular rhythm GI Inspection: Yes normal to inspection Neuro General: patient oriented x3 and moves all extremities Cranial nerves: Yes Equal, round and reactive pupils present Cognition (Neuro): normal cognition Motor exam (neuro): 5/5 motor strength present throughout Sensory Exam: Normal double simultaneous stimulation for sensation Coordination: [id number] test normal Extrem Other: pain with palpation of the dorsal foot General: Yes normal to inspection, Yes full ROM and Yes capillary refill normal Psych Appearance: grossly normal Mental Status: mental status grossly normal Affect: normal affect Attitude: cooperative Thought process: Normal thought process present Thought content: Normal thought content present Insight: Good insight present (Psych) Medical Decision Making MDM Narrative Medical decision making narrative: Patient is a 41 year old male presenting to the emergency department today with right ankle pain and right foot pain. Patient's physical exam showed tenderness to palpation of the right dorsal foot. Patient's right foot and ankle x-ray showed no acute process. I explained my physical exam findings as well as all test results to the patient. I answered all questions asked by the patient. Patient received IM Toradol and Solu-Medrol which he stated helped his symptoms significantly. I stressed the importance of the patient taking his medication as prescribed. I stressed the importance of the patient following up with his primary care provider. I stressed the importance of the patient returning to the emergency department immediately if his symptoms were to worsen or if he were to develop any dizziness, shortness of breath, difficulty breathing, chest pain, blurry vision, loss of vision, nausea, vomiting, abdominal pain, fever, chills, back pain, or any other complaints. Patient verbalized agreement and understanding with this treatment plan and discharge. Differential Diagnosis Differential Diagnosis: arthralgia, left ankle pain, left foot pain Medical Records Medical records reviewed: Yes I reviewed the patient's medical records. Imaging Data Left foot x-ray: Attestation: I personally reviewed and interpreted this imaging study as follows: My impression: No acute process. Radiologist's impression: EXAMINATION: XR FOOT, RIGHT CLINICAL INFORMATION: Pain.? COMPARISON: Right ankle radiographs dated 03/03/2022.? TECHNIQUE: AP, lateral, and oblique views of the right foot. FINDINGS: No acute fracture or dislocation. No joint space narrowing or marginal osteophytes. No osseous erosion. Small dorsal calcaneal spur.? XR/XR foot RT 2V IMPRESSION: No acute osseous abnormality. ? Small dorsal calcaneal spur. Dictated By: Guy Tuttle MD Signed By: Electronically signed by Guy Tuttle MD 03/03/22 1349 Left ankle x-ray: Attestation: I personally reviewed and interpreted this imaging study as follows: My impression: No acute process. Radiologist's impression: EXAMINATION: XR ANKLE, RIGHT CLINICAL INFORMATION: Clinical pain.? COMPARISON: None? TECHNIQUE: AP, lateral, and mortise views of the right ankle. FINDINGS: There is no acute fracture or dislocation. Minimal tibiotalar degenerative joint changes are seen. A corticated osseous density seen subjacent to the medial malleolus. The tarsal bones are normally aligned. There is a small retrocalcaneal spur. The soft tissues are unremarkable.? XR/XR ankle RT min 3V IMPRESSION: Degenerative changes as detailed above without overt acute osseous abnormality. Dictated By: Aroldo Park MD Signed By: Electronically signed by Aroldo Park MD 03/03/22 5527 Discharge Plan Discharge Clinical Impression: Arthralgia Patient Disposition: Home, Self-Care Instructions: Arthralgia (ED) Additional Instructions: Follow up with your primary care provider and orthopedist. Return to the emergency department immediately if your symptoms worsen or if you develop any dizziness, shortness of breath, difficulty breathing, chest pain, blurry vision, loss of vision, nausea, vomiting, abdominal pain, fever, chills, back pain, or any other complaints. Prescriptions: No Action mirtazapine [Remeron] 15 mg tablet 15 mg PO DAILY 0RF acetaminophen [Tylenol 8 Hour] 650 mg tablet extended release 650 mg PO Q8H 0RF escitalopram oxalate [Lexapro] 5 mg tablet 5 mg PO DAILY 0RF carisoprodol [Soma] 250 mg tablet 250 mg PO BEDTIME 0RF omeprazole 20 mg capsule,delayed release(DR/EC) 20 mg PO DAILY Qty: 30 5RF famotidine 40 mg tablet 40 mg PO DAILY Qty: 30 5RF simethicone [Gas Relief (simethicone)] 125 mg tablet,chewable 125 mg PO TID-QID PRN (Reason: abdominal distention) Qty: 90 2RF omeprazole 20 mg capsule,delayed release(DR/EC) 20 mg PO DAILY Qty: 30 11RF famotidine 40 mg tablet 40 mg PO DAILY Qty: 30 5RF Referrals: [facility] [place] Orthopedic Surgeons [Provider Group] Joie Flores MD [Primary Care Provider] - Interventions: ED Discharge Assessment Last Done: 03/03/22 14:03 Discharge Date/Time: 03/03/22 14:04 Print Language: Uzbek
[2022-03-03] MEDS: methylPREDNISolone Sod Succ 125 MG/2 ML VIAL 60 MG IM (13:55)
[2022-03-03] MEDS: Ketorolac Tromethamine 15 MG/ML VIAL IM (13:56)
== END 2022-03-03 14:04 | disposition home or self-care (01) ==
PROVIDERS: Emergency Provider Emergency Medicine; PCP Internal Medicine
DX: M25.571 Pain in right ankle and joints of right foot (principal); M79.671 Pain in right foot; Z79.899 Other long term (current) drug therapy
CPT/HCPCS: 73610; 73620; 96372; 99282; 99284; J1885; J2930

== ENCOUNTER → 2022-03-14 09:53 | Outpatient (BNVA) | payer MEDICAID, SELFPAY | PROVIDERS: PCP Internal Medicine; Visit Provider Nurse Practitioner Family | DX: M79.7 Fibromyalgia (principal); M79.671 Pain in right foot; M54.50 Low back pain, unspecified | CPT/HCPCS: 99212 ==

== ENCOUNTER → 2022-03-25 08:22 | Outpatient (BNVA) | payer MEDICAID, SELFPAY | PROVIDERS: PCP Internal Medicine; Visit Provider Physician Assistant | DX: M25.371 Other instability, right ankle (principal); M25.579 Pain in unspecified ankle and joints of unspecified foot; G89.29 Other chronic pain | CPT/HCPCS: 99202 ==

== ENCOUNTER → 2022-04-01 11:53 | Outpatient (BNVA) | payer MEDICAID, SELFPAY | PROVIDERS: PCP Internal Medicine; Referring Provider Internal Medicine; Visit Provider Physician Assistant | DX: R14.0 Abdominal distension (gaseous) (principal); K21.9 Gastro-esophageal reflux disease without esophagitis; K62.5 Hemorrhage of anus and rectum | CPT/HCPCS: 99202 ==

== ENCOUNTER 2022-05-14 11:00 | Outpatient (RCR) | payer MEDICAID, SELFPAY ==
--- NOTE | 2022-03-26 13:29 | MHC.PT.EP ---
[facility] [place] Office [place] [facility] [place] Office [address] [phone] F: [phone] F: [phone] F: [phone] F: [phone] Physical Therapy Plan of Care Date of Evaluation: Date of Surgery: NA Diagnosis: LOW BACK PAIN (MARTINE MURARY), CHRONIC R ANKLE PAIN (NELDA GILES). Pt HAS CHOSEN TO FOCUS ON R ANKLE PAIN FIRST Assessment: Pt IS 41 YO RHD M REFERRED TO PT FROM [facility] (GUERITA GILES) WITH CHRONIC R ANKLE PAIN . OF NOTE, Pt ALSO HAS SCRIPT FORM MARTINE MURRAY FOR BACK PAIN. Pt HAS CHOSEN TO START WITH ANKLE PAIN. REPORTS R ANKLE INJURY >15 YRS AGO PLAYING BASKETBALL WITHOUT TREATMENT. ABOUT 4 MONTHS AGO BEGAN TO HURT ALOT (NOT SURE WHY) WITH PROGRESSION OF PAIN (Pt NOW WALKING ON BALL OF FOOT ON R). PRESENTS WITH ANTALGIC GT (NO HEEL STRIKE R), DECREASED R ANKLE ROM AND STRENGTH WITH POOR PRORIOCEPTION AND PAIN. Pt WITH HX OF DEPRESSION (PER CHART). Pt IS NOT WORKING AND HAS MINIMAL ACTIVITY. SHOULD BENEFIT FROM PT TO ADDRESS ANKLE PAIN AND LIMITED STRENGTH/MOBILITY THEN PROGRESS TO FURTHER EX/STRETCHING FOR LBP/FIBROMYALGIA (PER RHEUMATOLOGY NOTE) Frequency and Duration: The patient will be seen 2X/WK X 6 WKS Short Term Goals: 1. IMPROVED GT PATTERN (HEEL STRIKE R) 2. I HEP WITH DC EX PLAN 3. 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 INCREASED R ANKLE ROM 5 DEGREES T/O 2. INCREASED R ANKLE STRENGTH 1/2 MM GRADE 3. DECREASED R ANKLE PAIN AT LEAST 50% WITH ADLS Treatment Plan: Modalities to reduce pain, spasms and effusion. Manual therapy to restore motion and function. Therapeutic exercise to improve strength and flexibility. Neuromuscular re-education for posture and balance. Therapeutic activities to return to functional activities of daily living. Electronically signed by: PHILLY ESTRADA PT Please sign and return to therapist. Thank you for your referral.
== END 2022-06-17 14:46 | disposition home or self-care (01) ==
LOC: HO.PTWFD 11:00
PROVIDERS: PCP Internal Medicine; Visit Provider Physician Assistant
DX: M25.571 Pain in right ankle and joints of right foot (principal); M25.371 Other instability, right ankle; G89.29 Other chronic pain
CPT/HCPCS: 97110; 97116; 97162; 97535

== ENCOUNTER 2022-05-14 12:02 | Outpatient (REF) | payer MEDICAID, SELFPAY ==
[2022-05-14 14:23] LABS: Alanine Aminotransferase 40 U/L (0-40); Albumin Level 4.2 g/dL (3.5-5.0); Alkaline Phosphatase 76 U/L (39-117); Anion Gap 11 (12-20); Aspartate Amino Transferase 23 U/L (5-37); Bilirubin Total 0.3 mg/dL (0.0-1.0); Blood Urea Nitrogen 8 mg/dL (9-16); Carbon Dioxide 27 mmol/L (22-29); Chloride 106 mmol/L (96-108); Estimated Glomerular Filt Rate > 60; Glucose Random 84 mg/dL (60-115); Potassium 4.4 mmol/L (3.3-5.1); Sodium 140 mmol/L (135-145); Total Protein 6.7 g/dL (6.5-8.0)
== END 2022-05-14 12:03 | disposition home or self-care (01) ==
LOC: HO.WFDLDS 12:02
PROVIDERS: Visit Provider Physician Assistant
DX: R10.9 Unspecified abdominal pain (principal); G89.29 Other chronic pain
CPT/HCPCS: 36415; 80053

== ENCOUNTER 2022-05-16 09:05 | Outpatient (REF) | payer MEDICAID, SELFPAY ==
--- NOTE | ~2022-05-16 | CT_ITS ---
EXAMINATION: CT ABDOMEN AND PELVIS WITH CONTRAST CLINICAL INFORMATION: Epigastric pain. COMPARISON: Previous renal and bladder ultrasound September 2021. TECHNIQUE: Multidetector volumetric images were obtained from the superior aspect of the liver through the pubic symphysis following administration 85 mL of Omnipaque 350 intravenous contrast. Sagittal and coronal reformatted images were obtained on the technologist's workstation. Oral contrast: Yes This CT examination was performed using dose optimization techniques as appropriate, variously including the following: *Automated exposure control *Adjustment of mA and/or kV according to patient size (this includes techniques or standardized protocols for targeted exams where dose is matched to indication/reason for exam; i.e. extremities or head) *Use of iterative reconstruction technique DLP: 644 mGy-cm FINDINGS: LUNG BASES: The visualized lung bases are unremarkable. LIVER, GALLBLADDER, AND BILIARY TREE: The liver is normal in size, shape, and attenuation. No focal hepatic lesion or biliary ductal dilatation is present. The gallbladder is unremarkable with no evidence of radiopaque gallstones, gallbladder wall thickening, or obvious pericholecystic inflammatory changes. PANCREAS: Unremarkable. SPLEEN: Unremarkable. ADRENAL GLANDS: Unremarkable. KIDNEYS AND URETERS: The kidneys are normal in size, shape, and attenuation. No hydronephrosis, hydroureter, or calculi seen. No perinephric stranding. BLADDER: Not optimally distended. GASTROINTESTINAL TRACT: The small and large bowel are unremarkable. The appendix is unremarkable. There are surgical clips adjacent to the GE junction or proximal stomach. There is question of mild wall thickening or fold thickening of the stomach. ABDOMINAL WALL: There is a small umbilical hernia containing fat. LYMPH NODES: Normal. VASCULAR: Unremarkable. PELVIC VISCERA: Unremarkable. OSSEOUS STRUCTURES: There are mild degenerative changes at the hip joints. CT/CT abdomen pelvis w con IMPRESSION: Question mild diffuse wall thickening or fold thickening of the stomach. Otherwise unremarkable exam. Fleischner guidelines were followed.
[2022-05-16] MEDS: iohexoL 350 MG/ML 100 ML INFUS..BTL IV (09:48)
== END 2022-05-16 09:06 | disposition home or self-care (01) ==
LOC: HO.CT 09:05
PROVIDERS: Visit Provider Physician Assistant
DX: R10.9 Unspecified abdominal pain (principal); K62.5 Hemorrhage of anus and rectum; G89.29 Other chronic pain
CPT/HCPCS: 74177; Q9967

== ENCOUNTER 2022-07-01 07:03 | Outpatient (REF) | payer MEDICAID, SELFPAY ==
[2022-07-01 13:10] LABS: MANUAL DIFF FLAG NO
[2022-07-01 13:13] LABS: Basophils Absolute Auto 0.1 X10*3/uL (0.0-0.2); Basophils Percent Auto 0.6 % (0-2); Eosinophils Absolute Auto 0.2 X10*3/uL (0.0-0.4); Eosinophils Percent Auto 2.3 % (0-4); Hematocrit 45.3 % (42.0-52.0); Hemoglobin 15.5 g/dl (14.0-18.0); Imm Gran Abs Auto 0.03 X10*3/uL (0.00-0.03); Imm Gran Pct Auto 0.3 % (0.0-0.4); Lymphocytes Absolute Auto 1.6 X10*3/uL (1.2-4.9); Lymphocytes Percent Auto 17.5 % (20-40); Mean Corpuscular HGB Conc 34.2 g/dl (31.0-36.0); Mean Corpuscular Hemoglobin 30.8 pg (27.0-33.0); Mean Corpuscular Volume 90.1 fL (80.0-98.0); Mean Platelet Volume 10.5 fL (9.4-12.4); Monocytes Absolute Auto 0.9 X10*3/uL (0.1-1.2); Monocytes Percent Auto 9.5 % (2-11); Neutrophils Absolute Auto 6.5 x10*3/uL (2.0-8.3); Neutrophils Percent Auto 69.8 % (45-73); Platelet Count 213 X10*3/uL (160-400); Red Blood Count 5.03 X10*6/uL (4.60-5.80); Red Cell Distribution Width 12.2 % (11.0-16.0); White Blood Count 9.3 X10*3/uL (4.8-10.8)
[2022-07-01 13:23] LABS: Estimated Average Glucose 103 mg/dL; Hemoglobin A1c % 5.2 %
[2022-07-01 13:30] LABS: Cholesterol 204 mg/dL; HDL Cholesterol 37 mg/dL; LDL Cholesterol Calculated 141 mg/dl; Triglycerides 133 mg/dL
[2022-07-01 13:47] LABS: Vitamin D 25-OH Total 21.9 ng/mL (>30)
[2022-07-01 13:54] LABS: Vitamin B12 382 pg/mL (200-900)
[2022-07-03 06:52] LABS: LDL Cholesterol Direct 151 mg/dL (<100)
== END 2022-07-01 07:04 | disposition home or self-care (01) ==
LOC: HO.WFDLDS 07:03
PROVIDERS: Visit Provider Internal Medicine
DX: E66.9 Obesity, unspecified (principal); F41.9 Anxiety disorder, unspecified; G47.10 Hypersomnia, unspecified; G56.03 Carpal tunnel syndrome, bilateral upper limbs; M25.521 Pain in right elbow; M79.7 Fibromyalgia
CPT/HCPCS: 36415; 80061; 82306; 82607; 83036; 83721; 84443; 85025

== ENCOUNTER → 2022-07-09 09:49 | Outpatient (BNVA) | payer MEDICAID, SELFPAY | PROVIDERS: PCP Internal Medicine; Visit Provider Nurse Practitioner Family | DX: M79.7 Fibromyalgia (principal); M25.521 Pain in right elbow; Z79.899 Other long term (current) drug therapy | CPT/HCPCS: 99212 ==

== ENCOUNTER 2022-08-21 13:35 | Outpatient (REF) | payer MEDICAID, SELFPAY ==
--- NOTE | 2022-08-21 09:30 | EMG_ITS ---
Bilateral median and ulnar motor and sensory studies were performed. Bilateral radial sensory studies were performed and paraspinal muscles were tested. IMPRESSION: 1. Mild bilateral median neuropathy across carpal tunnel. 2. Mild left ulnar neuropathy across cubital tunnel. MD ALVERTO Szymanski/RADHA / [id number]
== END 2022-08-21 13:36 | disposition home or self-care (01) ==
LOC: HO.NEURO 13:35
PROVIDERS: Visit Provider Internal Medicine
DX: G56.03 Carpal tunnel syndrome, bilateral upper limbs (principal); R20.2 Paresthesia of skin
CPT/HCPCS: 95886; 95911

== ENCOUNTER 2023-02-03 06:44 | Day surgery (SDC) | payer MEDICAID, SELFPAY ==
[2023-01-29 16:27] VITALS: BMI 38.8
[2023-02-03 07:16] VITALS: BP 129/75; PULSE 85; RESP 15; TEMP 36.3; O2SAT 96
--- NOTE | 2023-02-03 07:28 | P.CONAN_ITS ---
[facility], [facility] Active Problems Active Problems: All Active Problems (Updated 02/03/23 @ 07:07 by Gavi Torres RN) Rectal bleeding (Acute) Periumbilical pain (Acute) Tubular adenoma of colon (Acute) Hemorrhoids (Acute) Polyarthralgia (Acute) Lipoma of back (Acute) Functional bloating (Acute) Fibromyalgia (Acute) Chronic ankle pain (Acute) Other instability, right ankle (Acute) Chronic abdominal pain (Acute) Abnormal finding on CT scan (Acute) GERD (gastroesophageal reflux disease) (Acute) Anxiety and depression (Acute) Joint pain (Acute) Epigastric abdominal pain (Acute) Past Medical History Medical History Anxiety and depression Chronic recurrent pilonidal cyst Epigastric abdominal pain GERD (gastroesophageal reflux disease) Hx of sleep apnea Joint pain Stomach tumor (benign) Family History Family History Father Prostate cancer Mother Diabetes Maternal Grandmother Breast cancer Family history of problems with anesthesia: No Surgical History Surgical History History of esophagogastroduodenoscopy (EGD) History of excision of pilonidal cyst Hx of colonoscopy (~12/2020) History of Problems with Anesthesia: No Social History Social History Household Members: Spouse and Children Alcohol intake: never Patient Tobacco Use Status: Never used Tobacco Use of substances other than those prescribed or required for medical reasons: Yes Substance Use Type: Marijuana Substance Use Frequency: Daily Are you DNR?: No Advance Directives: No Advance Directives Information Provided: Yes 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al status: unemployed Meds Allergies Allergy/AdvReac Type Severity Reaction Status Date / Time No Known Allergies Allergy Verified 02/03/23 07:08 [No Known Allergies*] Home Medications Medication Instructions Recorded Confirmed Last Taken Type escitalopram oxalate 5 mg tablet 5 mg PO DAILY 08/29/20 02/03/23 Unknown History (Lexapro) acetaminophen 650 mg 650 mg PO Q8H PRN Pain 01/29/21 02/03/23 Unknown History tablet,extended release (Tylenol 8 Hour) baclofen 20 mg tablet 20 mg PO TID 07/09/22 02/03/23 Unknown History cholecalciferol (vitamin D3) 25 25 mcg PO DAILY 07/09/22 02/03/23 Unknown History mcg (1,000 unit) capsule duloxetine 20 mg capsule,delayed 20 mg PO DAILY 07/09/22 02/03/23 Unknown History release (Cymbalta) gabapentin 100 mg capsule 100 mg PO BEDTIME 07/09/22 02/03/23 Unknown History multivitamin 1 tab PO DAILY 07/09/22 02/03/23 Unknown History Exam Exam Date and Time: February 03, 202328 Height,Weight and Vital Signs: Height 5 ft 7 in Weight 112.491 kg Last Vital Signs Temp 97.4 F 02/03/23 07:16 Pulse 85 02/03/23 07:16 Resp 15 02/03/23 07:16 BP 129/75 02/03/23 07:16 Pulse Ox 96 02/03/23 07:16 O2 Del Method Room Air 02/03/23 07:16 Airway Mallampati Class: III TM Dist: >3cm Neck ROM: Full Loose/Missing/Broken Teeth: No Heart: RRR Lungs: CTA Assessment and Plan Assessment Anesthesia Assessment: Anesthesia Plan Discussed and Chart Reviewed Final Anesthetic Review Family History of Problems with Anesthesia: No History of Problems with Anesthesia: No NPO: Yes ASA Class: III Final Preanesthetic Review: Meds/Allgs Chart Reviewed, Consent Obtained/Reviewed and Anes Risks/Benef Reviewed Patient Risk: Intermediate Procedure Risk: Intermediate Anesthetic Plan Anesthetic Plan: MAC: Disposition: Standard PACU
--- NOTE | 2023-02-03 07:43 | MHC.SHP ---
Pre-Procedural Eval Section A Date of Service: 02/03/23 Section B Chief Complaint: Benign neoplasm of colon, unspecified,Hemorrhage Details of Present Illness: abdominal pain and nausea, hx of polyp Relevant Family History (Specify if Yes): No Relevant Social History: Other (specify) (THC use) Present Medications: see Short Stay Collaborative assessment Medical History: Significant History (Anxiety and depression Chronic recurrent pilonidal cyst Epigastric abdominal pain GERD (gastroesophageal reflux disease) Hx of sleep apnea Joint pain Stomach tumor (benign)) History of Previous Operations: Relevant previous surgery/procedure and date(s) (History of esophagogastroduodenoscopy (EGD) History of excision of pilonidal cyst Hx of colonoscopy (~12/2020)) Allergies: Allergies Allergy/AdvReac Type Severity Reaction Status Date / Time No Known Allergies Allergy Verified 02/03/23 07:08 [No Known Allergies*] Review of Systems Sugical H&P ROS: Negative: Constitution, Cardiovascular, Respiratory, Neurological, Psychiatric, Hem-Onc, Allergic/Immunologic, Gastrointestinal, Genitourinary, Musculoskeletal, Integumentary, Endocrine and Eyes/Ears/Nose/Throat Exam Surgical H&P Exam: Normal: HEENT, Normal: Heart, Normal: Lungs, Normal: Extremities, Normal: Abdomen, Normal: Skin and Normal: Neurological Plan Diagnosis/Plan: Unchanged I have reviewed the history and physical and performed a pertinent physical examination on my patient. No changes have occurred unless specified. EGD for abdominal pain and nausea Time Spent With Patient Time: Total time managing care of this patient today ____ minutes.
--- NOTE | 2023-02-03 07:44 | W.PM.OPN ---
Operative Note Operative Note Date of Service: 02/03/23 Narrative: Operative Information Procedure Description: EGD, Colonoscopy Indication: epigastric pain and hx of colon polyp Anesthesia: MAC FLEXIBLE TRANSORAL UPPER GASTROINTESTINAL ENDOSCOPY AND COLONOSCOPY PROCEDURE NOTE UPPER ENDOSCOPY Consent: Indications for the procedure and potential complications of bleeding, perforation, reaction to medications and missed diagnosis were discussed with the patient and informed consent was obtained. Instrument: Olympus GIF H 190 J mid size upper endoscope Monitoring: Vital signs and clinical assessment, continuous EKG monitoring, Pulse oximetry, Carbon Dioxide monitoring and blood pressure monitoring were done throughout the procedure. Procedure: The patient was placed in the left lateral decubitis position and pre-procedure medications were administered and a bite block was placed. The endoscope was inserted into the mouth and advanced under direct vision to the third part of duodenum. A careful inspection was made as the upper endoscope was withdrawn including a retroflexed examination of the proximal stomach; Findings and interventions are described below. Findings: Larynx:normal Esophagus: GE junction at 39 cm, diaphragm hiatus at 42 cm, consistent with 3 cm sliding hiatal hernia, erosive esophagitis noted, LA grade B, bx taken from GEJ, distal and proximal esophagus, some ringing of the esophagus noted, and also a non obstructive schatzki ring. Stomach: Patchy erythema with flecks of blood. Biopsies were obtained. Grade 2 flap valve on retroflexed examination of the cardia. Duodenum: Moderate severe duodenitis, with erythema and edema Intervention: Biopsies as noted above COLONOSCOPY Instrument: Olympus variable stiffness pediatric scope 190L Colonoscopy Monitoring: Vital signs and clinical assessment, continuous EKG monitoring, Pulse oximetry, Carbon Dioxide monitoring and blood pressure monitoring were done throughout the procedure. Colon withdrawal time was 25 minutes. Procedure: The patient was placed in the left lateral decubitis position and pre-procedure medications were administered. After a digital rectal examination of the ano-rectum, the video colonoscope was inserted into the rectum and advanced through the colon to the cecum/TI. The colonoscope was slowly withdrawn in a retrograde panoramic fashion and the colon mucosa was carefully examined including a retroflexed view of the rectum. Findings and interventions are described below. Procedure Difficulty: easy Findings: Terminal Ileum-normal, bx taken Random colon bx taken due to granular appearing mucosa Cecum:normal Ascending Colon: normal Transverse Colon -normal Descending Colon:normal Sigmoid Colon: 8-10 mm sessile polyp noted around a scar, lifted with methylene blue and then removed with hot snare and x 2 clips applied for hemostasis Rectum: Retroflexion with small internal hemorrhoids, grade I Anorectum - normal Colon preparation: Whiting Bowel Preparation Scale Right colon; 2 Transverse colon: 2 Left colon; 2 (0 = Unprepared colon segment with mucosa not seen due to solid stool that cannot be cleared. 1 = Portion of mucosa of the colon segment seen, but other areas of the colon segment not well seen due to staining, residual stool and/or opaque liquid. 2 = Minor amount of residual staining, small fragments of stool and/or opaque liquid, but mucosa of colon segment seen well. 3 = Entire mucosa of colon segment seen well with no residual staining, small fragments of stool or opaque liquid) Impression and Post Procedure Diagnosis: Endoscopy Findings: duodenitis gastritis erosive esophagitis hiatal hernia schatzki ring Colonoscopy Findings: polyp internal hemorrhoids Plan: Await Pathology results Repeat Colonoscopy in 5 years due to polyp or earlier if clinically indicated High fiber diet leaflet avoid straining at stool, epsom salts and sitz bath, anusol supps or cream If H pylori pos then treat check nsaid hx check compliance with PPI Above findings were reviewed with the patient and relevant handouts were provided if indicated.
[2023-02-03 08:36] VITALS: BP 109/59; PULSE 76; RESP 20; TEMP 36.9; O2SAT 98
[2023-02-03 08:51] VITALS: BP 118/73; PULSE 79; RESP 20; TEMP 36.4; O2SAT 96
== END 2023-02-03 09:25 | disposition home or self-care (01) ==
PROVIDERS: Visit Provider Internal Medicine Gastroenterology
PROC: (CPT 45385; principal; 2023-02-03 07:30)
DX: K62.5 Hemorrhage of anus and rectum (principal); Z86.010 Personal history of colon polyps; K63.5 Polyp of colon; K64.0 First degree hemorrhoids; R14.0 Abdominal distension (gaseous); K21.9 Gastro-esophageal reflux disease without esophagitis; K29.80 Duodenitis without bleeding; K29.50 Unspecified chronic gastritis without bleeding; K22.2 Esophageal obstruction; K44.9 Diaphragmatic hernia without obstruction or gangrene; M79.7 Fibromyalgia; Z86.018 Personal history of other benign neoplasm; F41.8 Other specified anxiety disorders; G47.30 Sleep apnea, unspecified; Z79.899 Other long term (current) drug therapy; F12.90 Cannabis use, unspecified, uncomplicated
CPT/HCPCS: 45385; 45381; 43239; 88305; 88342

== ENCOUNTER 2023-02-13 06:54 | Outpatient (REF) | payer MEDICAID, SELFPAY ==
[2023-02-13 11:24] LABS: MANUAL DIFF FLAG NO
[2023-02-13 11:34] LABS: Basophils Absolute Auto 0.1 X10*3/uL (0.0-0.2); Basophils Percent Auto 0.7 % (0-2); Eosinophils Absolute Auto 0.2 X10*3/uL (0.0-0.4); Eosinophils Percent Auto 2.9 % (0-4); Hematocrit 45.1 % (42.0-52.0); Hemoglobin 15.2 g/dl (14.0-18.0); Imm Gran Abs Auto 0.04 X10*3/uL (0.00-0.03); Imm Gran Pct Auto 0.5 % (0.0-0.4); Lymphocytes Absolute Auto 2.2 X10*3/uL (1.2-4.9); Lymphocytes Percent Auto 26.2 % (20-40); Mean Corpuscular HGB Conc 33.7 g/dl (31.0-36.0); Mean Platelet Volume 10.5 fL (9.4-12.4); Monocytes Absolute Auto 0.8 X10*3/uL (0.1-1.2); Monocytes Percent Auto 9.7 % (2-11); Platelet Count 214 X10*3/uL (160-400); Red Blood Count 5.07 X10*6/uL (4.60-5.80); Red Cell Distribution Width 12.7 % (11.0-16.0); White Blood Count 8.3 X10*3/uL (4.8-10.8)
[2023-02-13 11:45] LABS: Estimated Average Glucose 111 mg/dL; Hemoglobin A1c % 5.5 %
[2023-02-13 12:15] LABS: Alanine Aminotransferase 35 U/L (0-40); Albumin Level 4.2 g/dL (3.5-5.0); Alkaline Phosphatase 78 U/L (39-117); Anion Gap 9 (12-20); Aspartate Amino Transferase 22 U/L (5-37); Bilirubin Total 0.4 mg/dL (0.0-1.0); Blood Urea Nitrogen 13 mg/dL (9-16); Calcium 9.3 mg/dL (8.4-10.2); Carbon Dioxide 30 mmol/L (22-29); Chloride 107 mmol/L (96-108); Cholesterol 200 mg/dL; Estimated Glomerular Filt Rate > 60; Glucose Random 107 mg/dL (60-115); HDL Cholesterol 38 mg/dL; LDL Cholesterol Calculated 135 mg/dl; Potassium 4.3 mmol/L (3.3-5.1); Sodium 142 mmol/L (135-145); Total Protein 6.5 g/dL (6.5-8.0); Triglycerides 136 mg/dL
[2023-02-13 12:19] LABS: HBS Num1 0.01 mIU/mL (0-7.99); HBsAGNum1 0.39 S/CO (0.00-0.99); HIV AB/AG Nonreactive (Nonreactive); HIV Num 1 0.07 S/CO (0.00-0.99); Hepatitis B Core Antibody Nonreactive (Nonreactive); Hepatitis B Surface Antigen Negative (Negative); ~Hepatitis B Surface Antibody NONREACTIVE (Nonreactive)
[2023-02-13 12:21] LABS: TSH reflex Free T4 1.16 uIU/mL (0.32-4.0)
[2023-02-13 12:23] LABS: ~HepC Num1 0.23 S/CO (0.00-0.79); ~Hepatitis C Antibody Nonreactive (Nonreactive)
[2023-02-13 12:36] LABS: Syphilis Screen Nonreactive (Nonreactive)
== END 2023-02-13 06:55 | disposition home or self-care (01) ==
LOC: HO.WFDLDS 06:54
PROVIDERS: Visit Provider Student in an Organized Health Care Education/Training Program
DX: Z00.00 Encounter for general adult medical examination without abnormal findings (principal); Z11.4 Encounter for screening for human immunodeficiency virus [HIV]
CPT/HCPCS: 36415; 80053; 80061; 83036; 84443; 85025; 86704; 86706; 86780; 86803; 87340; 87389

== ENCOUNTER → 2023-04-10 09:19 | Outpatient (BNVA) | payer MEDICAID, SELFPAY | PROVIDERS: PCP Internal Medicine; Referring Provider Physician Assistant; Visit Provider Surgery | DX: K62.5 Hemorrhage of anus and rectum (principal) | CPT/HCPCS: 99212 ==

== ENCOUNTER 2023-04-16 10:53 | Outpatient (REF) | payer MEDICAID, SELFPAY ==
--- NOTE | ~2023-04-16 | XR_ITS ---
EXAMINATION: XR FOOT, LEFT CLINICAL INFORMATION: Left great toe pain x2 years. COMPARISON: Right foot 03/03/2022 . TECHNIQUE: AP, lateral, and oblique views of the left foot. FINDINGS: Some mild degenerative changes are present at the interphalangeal joint of the great toe with some periarticular calcifications seen laterally Milder degenerative changes are present at the metatarsal phalangeal joint of the great toe with a medial osteophyte. No fractures are seen. Enthesopathy is present at the insertion of the Achilles tendon. XR/XR foot LT min 3V IMPRESSION: Mild degenerative changes at the interphalangeal joint of the great toe with some periarticular calcifications with milder changes at the 1st MTP joint.
== END 2023-04-16 10:54 | disposition home or self-care (01) ==
LOC: HO.HHCX 10:53
PROVIDERS: Visit Provider Student in an Organized Health Care Education/Training Program
DX: M79.672 Pain in left foot (principal)
CPT/HCPCS: 73630

== ENCOUNTER 2023-04-22 09:49 | Outpatient (AMB) | payer MEDICAID, SELFPAY ==
[2023-04-22 09:58] VITALS: BMI 41.0
--- NOTE | 2023-04-22 09:58 | A.OFFVIS_ITS ---
Intake Vital Signs 04/22/23 09:58 Height 5 ft 7 in Weight 262 lb BMI 41.0 Intake Visit Reasons: NProblem- RT hand nodule Intake Note: Jonny 43 yr old right hand dominant male who is unemployed, presents today for a new problem of his right hand. States he has lumps/nodule at base of his index finger. States he first noticed they were very small but now they feel bigger. Reports he feels tightness and pressure when driving or with any gripping motion. States he has numbness & tingling which worsens at night time for the last 2 years. EMG done. Reports jhis right hand is worse. Allergies No Known Allergies [No Known Allergies*] Allergy (Verified 04/22/23 10:05) HPI NProblem- RT hand nodule HPI Details Jonny is a 43 year old right hand dominant man who presents with complaints of a painful right hand mass, as well as bilateral hand numbness. He complains today of a mass at the base of his right index finger that have been increasing in size. He feels tightness & pressure when gripping objects such as while driving. He says this has been present for ~1-2 years. He complains of ~2 years intermittent numbness in his bilateral hands. He says his right hand numbness is mostly in the thumb index and middle fingers, and his left hand numbness is primarily in the small and ring fingers. His symptoms are intermittent, but daily, worse at night. He feels hand weakness and occasionally drops objects, including his cellphone. He has completed a NCS and bilateral carpal tunnel syndrome and left cubital tunnel syndrome. He has Fibromyalgia, anxiety, depression, and some ankle and lower back problems. 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 He says he is being seen by a doctor and a psychiatrist for these issues. 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, but has been rejecting jobs recently due to these issues [facility] Medical History Anxiety and depression Chronic recurrent pilonidal cyst Epigastric abdominal pain GERD (gastroesophageal reflux disease) Hx of sleep apnea Joint pain Stomach tumor (benign) Surgical History History of esophagogastroduodenoscopy (EGD) History of excision of pilonidal cyst Hx of colonoscopy (~12/2020) Family History Father Prostate cancer Mother Diabetes Maternal Grandmother Breast cancer Social History Household Members: Spouse and Children Alcohol intake: never Patient Tobacco Use Status: Never used Tobacco Substance Use Type: Marijuana 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al status: unemployed 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: right hand Review of Systems Const All systems reviewed & are unremarkable except as noted in HPI and below Physical Exam Vital Signs: BMI result Body Mass Index 41.0 Const General: cooperative, healthy appearing and no acute distress Orientation/consciousness: patient oriented x3 HEENT Head: Yes normocephalic and Yes atraumatic Eyes EOM: EOMs intact bilaterally Resp Effort & Inspection: normal respiratory effort and able to speak in complete sentences Cardio Jugular venous distension: no JVD Skin General skin exam: turgor normal Rashes: no rashes Neuro General: patient oriented x3 Extrem Other: Evaluation of Right Upper Extremity: The patient is alert, oriented, and in no acute distress Neuro: Median, Ulnar, Radial nerves motor and sensory intact and sensation is normal to the tips of all digits today in clinic No thenar or intrinsic wasting Good APB muscle belly firing and good finger cross Vascular: Cap refill brisk ROM: He can make a fist ands extend all his digits No locking or catching Skin: No lacerations or abrasions. General: No Ecchymosis. No Erythema or evidence of infection. He has a mass over the a1 laurel of the index finger, measuring ~1cm in diameter. This is somewhat mobile, feels like it may be attached to undersurface of skin. This does not move with finger ROM. Nerve Conduction Study: IMPRESSION:? 1. Mild bilateral median neuropathy across carpal tunnel. 2. Mild left ulnar neuropathy across cubital tunnel. ? M Andrés Mcdonnell MD 08/21/2022? Psych Appearance: grossly normal Affect: normal affect Attitude: cooperative Assessment & Plan Assessment & Plan (1) Carpal tunnel syndrome of right wrist: Code(s): G56.01 - Carpal tunnel syndrome, right upper limb (2) Carpal tunnel syndrome of left wrist: Code(s): G56.02 - Carpal tunnel syndrome, left upper limb (3) Cubital tunnel syndrome on left: Code(s): G56.22 - Lesion of ulnar nerve, left upper limb (4) Mass of right hand: Code(s): R22.31 - Localized swelling, mass and lump, right upper limb Plan Assessment & Plan: 1. Right hand mass Measuring ~1cm in diameter, over the a1 laurel of the index finger Possible epidermal inclusion cyst 2. Right Carpal tunnel syndrome, mild Symptoms intermittent, but daily, worse at night. I educate him about these conditions I discussed treatment options The patient would like to proceed with surgery The risks and benefits of operative treatment were discussed with the patient and the patient wishes to proceed with surgery. These risks include, but are not limited to risk of damage to blood vessels, nerves, tendons, infection, recurrence, incomplete relief of preoperative symptoms, persistent pain, possible need for further surgery and the risks associated with regional blocks and anesthesia. The plan is to take the patient to the operating room sometime in the next few weeks for the following procedures: 1. Right carpal tunnel release, under local 2. Right hand mass excision, under local All of the preoperative paperwork including the consent was filled out today. All the patient's questions were answered. The patient understands that they will be contacted by our rn plastic surgery soon to schedule this procedure He denies Diabetes, blood thinners, asthma, heart, lung, kidney issues 3. Left Carpal tunnel syndrome, mild 4. Left Cubital tunnel syndrome, mild Symptoms intermittent, but daily, worse at night. The ulnar nerve numbness is more bothersome on this side This is not as bothersome as his right hand He can follow up prn to discuss treatment. Scribed for Janet Parada MD by Jose Siddiqui, medical claims assistant, on 04/22/23 at 10:20 AM, EST. Coding Level of Care Code New Pt Level 4 (05240) Diagnoses Carpal tunnel syndrome of right wrist G56.01 Carpal tunnel syndrome of left wrist G56.02 Cubital tunnel syndrome on left G56.22 Mass of right hand R22.31
== END 2023-04-22 10:29 | disposition home or self-care (01) ==
PROVIDERS: PCP Internal Medicine; Visit Provider Orthopaedic Surgery
DX: R22.31 Localized swelling, mass and lump, right upper limb (principal); G56.01 Carpal tunnel syndrome, right upper limb; G56.02 Carpal tunnel syndrome, left upper limb; G56.22 Lesion of ulnar nerve, left upper limb
CPT/HCPCS: 99204

== ENCOUNTER → 2023-04-22 09:49 | Outpatient (BNVA) | payer MEDICAID, SELFPAY | PROVIDERS: PCP Internal Medicine; Visit Provider Orthopaedic Surgery | DX: G56.03 Carpal tunnel syndrome, bilateral upper limbs (principal); G56.22 Lesion of ulnar nerve, left upper limb; R22.31 Localized swelling, mass and lump, right upper limb | CPT/HCPCS: 99202 ==

== ENCOUNTER 2023-05-07 09:36 | Outpatient (REF) | payer MEDICAID, SELFPAY ==
--- NOTE | ~2023-05-07 | CT_ITS ---
EXAMINATION: CT ABDOMEN AND PELVIS WITHOUT CONTRAST CLINICAL INFORMATION: Hemorrhage of anus and rectum. COMPARISON: CT abdomen pelvis 05/16/2022 TECHNIQUE: Multidetector volumetric imaging was performed from the superior aspect of the liver through the pubic symphysis. Oral contrast media was administered. Sagittal and coronal reformatted images were obtained on the technologist's workstation. This CT examination was performed using dose optimization techniques as appropriate, variously including the following: *Automated exposure control *Adjustment of mA and/or kV according to patient size (this includes techniques or standardized protocols for targeted exams where dose is matched to indication/reason for exam; i.e. extremities or head) *Use of iterative reconstruction technique DLP: 817 mGy-cm. FINDINGS: LUNG BASES: The visualized lung bases are unremarkable. LIVER, GALLBLADDER, AND BILIARY TREE: The liver is normal in size, shape, and attenuation. No focal hepatic lesion or biliary ductal dilatation is present. The gallbladder is unremarkable with no evidence of radiopaque gallstones, gallbladder wall thickening, or obvious pericholecystic inflammatory changes. PANCREAS: Unremarkable. SPLEEN: Unremarkable. ADRENAL GLANDS: The right adrenal gland is thickened. The left adrenal gland is not well seen. KIDNEYS AND URETERS: The kidneys are normal in size, shape, and attenuation. No hydronephrosis, hydroureter, or calculi seen. No perinephric stranding. BLADDER: Unremarkable. GASTROINTESTINAL TRACT: Again seen is thickening of the gastric folds near the GE junction. Surgical clips are present as well. The small and large bowel are unremarkable. The appendix is unremarkable. ABDOMINAL WALL: No significant hernia is appreciated. LYMPH NODES: Normal. VASCULAR: Unremarkable. PELVIC VISCERA: Unremarkable. OSSEOUS STRUCTURES: Unremarkable. CT/CT abdomen pelvis wo IV con IMPRESSION: A cause for the patient's rectal bleeding has not been found. There is thickening of the gastric folds near the GE junction similar to prior. The left adrenal gland is not optimally seen. Fleischner guidelines were followed.
[2023-05-07] MEDS: Barium Sulfate Oral (Berry) 450 ML ORAL.SUSP 900 ML PO (11:51)
== END 2023-05-07 09:37 | disposition home or self-care (01) ==
LOC: HO.CT 09:36
PROVIDERS: PCP Internal Medicine; Visit Provider Surgery
DX: R10.2 Pelvic and perineal pain (principal); K62.5 Hemorrhage of anus and rectum
CPT/HCPCS: 74176

== ENCOUNTER 2023-05-28 06:53 | Day surgery (SDC) | payer MEDICAID, SELFPAY ==
--- NOTE | 2023-05-27 08:54 | P.CONAN_ITS ---
Documented by User: Ann Ng NP 05/27/23 08:55 HPI - Anesthesia Eval Consult details Narrative: 43yo M for Right Carpal Tunnel Release, Right Excision Mass s/p EGD, [place] 02/2023 with [facility] PMF[facility] Active Problems Active Problems: All Active Problems (Updated 04/22/23 @ 10:20 by Jose Siddiqui) Mass of right hand (Acute) Cubital tunnel syndrome on left (Acute) Carpal tunnel syndrome of left wrist (Acute) Carpal tunnel syndrome of right wrist (Acute) Abdominal pain, LUQ (Acute) Rectal bleeding (Acute) Periumbilical pain (Acute) Tubular adenoma of colon (Acute) Hemorrhoids (Acute) Polyarthralgia (Acute) Lipoma of back (Acute) Functional bloating (Acute) Fibromyalgia (Acute) Chronic ankle pain (Acute) Other instability, right ankle (Acute) Chronic abdominal pain (Acute) Abnormal finding on CT scan (Acute) GERD (gastroesophageal reflux disease) (Acute) Anxiety and depression (Acute) Joint pain (Acute) Epigastric abdominal pain (Acute) Past Medical History Medical History Anxiety and depression Chronic recurrent pilonidal cyst Epigastric abdominal pain GERD (gastroesophageal reflux disease) Hx of sleep apnea Joint pain Stomach tumor (benign) Family History Family History Father Prostate cancer Mother Diabetes Maternal Grandmother Breast cancer Family history of problems with anesthesia: No Surgical History Surgical History History of esophagogastroduodenoscopy (EGD) History of excision of pilonidal cyst Hx of colonoscopy (~12/2020) History of Problems with Anesthesia: No Social History Social History Household Members: Spouse and Children Alcohol intake: never Patient Tobacco Use Status: Never used Tobacco Substance Use Type: Marijuana Are you DNR?: No Advance Directives: No Advance Directives Information Provided: Yes Recently lost weight without trying: No Nutrition Risks: No Nutritional Risk 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al status: unemployed 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: 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 Meds Allergies Allergy/AdvReac Type Severity Reaction Status Date / Time No Known Allergies Allergy Verified 04/22/23 10:05 [No Known Allergies*] Home Medications Medication Instructions Recorded Confirmed Last Taken Type escitalopram oxalate 5 mg tablet 5 mg PO DAILY 08/29/20 04/10/23 Unknown History (Lexapro) acetaminophen 650 mg 650 mg PO Q8H PRN Pain 01/29/21 04/10/23 Unknown History tablet,extended release (Tylenol 8 Hour) baclofen 20 mg tablet 20 mg PO TID 07/09/22 04/10/23 Unknown History cholecalciferol (vitamin D3) 25 25 mcg PO DAILY 07/09/22 04/10/23 Unknown History mcg (1,000 unit) capsule duloxetine 20 mg capsule,delayed 20 mg PO DAILY 07/09/22 04/10/23 Unknown History release (Cymbalta) gabapentin 100 mg capsule 100 mg PO BEDTIME 07/09/22 04/10/23 Unknown History multivitamin 1 tab PO DAILY 07/09/22 04/10/23 Unknown History carbamide peroxide 6.5 % ear drops 0 drp otic (ears) 04/10/23 04/10/23 Unknown History (Ear Drops (carbamide peroxide)) Exam Exam Date and Time: May 27, 2023 0854 Pertinent Lab Results Pertinent Lab Results: Laboratory Tests 02/13/23 02/13/23 07:05 07:05 WBC 8.3 Hgb 15.2 Hct 45.1 Plt Count 214 Sodium 142 Potassium 4.3 Chloride 107 Carbon Dioxide 30 H BUN 13 Creatinine 1.15 Assessment and Plan Assessment Anesthesia Assessment: Chart Reviewed Final Anesthetic Review Family History of Problems with Anesthesia: No History of Problems with Anesthesia: No Documented by User: Rand Casas MD 05/28/23 09:34 [facility] Past Medical History Medical History Anxiety and depression Chronic recurrent pilonidal cyst Epigastric abdominal pain GERD (gastroesophageal reflux disease) Hx of sleep apnea Joint pain Stomach tumor (benign) Family History Family History Father Prostate cancer Mother Diabetes Maternal Grandmother Breast cancer Surgical History Surgical History History of esophagogastroduodenoscopy (EGD) History of excision of pilonidal cyst Hx of colonoscopy (~12/2020) Social History Social History Household Members: Spouse and Children Alcohol intake: never Patient Tobacco Use Status: Never used Tobacco Substance Use Type: Marijuana Are you DNR?: No Advance Directives: No Advance Directives Information Provided: Yes Recently lost weight without trying: No Nutrition Risks: No Nutritional Risk 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al status: unemployed 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: right 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 Meds Allergies Allergy/AdvReac Type Severity Reaction Status Date / Time No Known Allergies Allergy Verified 04/22/23 10:05 [No Known Allergies*] Home Medications Medication Instructions Recorded Confirmed Last Taken Type escitalopram oxalate 5 mg tablet 5 mg PO DAILY 08/29/20 04/10/23 Unknown History (Lexapro) acetaminophen 650 mg 650 mg PO Q8H PRN Pain 01/29/21 04/10/23 Unknown History tablet,extended release (Tylenol 8 Hour) baclofen 20 mg tablet 20 mg PO TID 07/09/22 04/10/23 Unknown History cholecalciferol (vitamin D3) 25 25 mcg PO DAILY 07/09/22 04/10/23 Unknown History mcg (1,000 unit) capsule duloxetine 20 mg capsule,delayed 20 mg PO DAILY 07/09/22 04/10/23 Unknown History release (Cymbalta) gabapentin 100 mg capsule 100 mg PO BEDTIME 07/09/22 04/10/23 Unknown History multivitamin 1 tab PO DAILY 07/09/22 04/10/23 Unknown History carbamide peroxide 6.5 % ear drops 0 drp otic (ears) 04/10/23 04/10/23 Unknown History (Ear Drops (carbamide peroxide)) Exam Airway Mallampati Class: III TM Dist: >3cm Neck ROM: Full Loose/Missing/Broken Teeth: No Heart: RRR Lungs: CTA Assessment and Plan Assessment Anesthesia Assessment: Anesthesia Plan Discussed Final Anesthetic Review NPO: Yes ASA Class: III Final Preanesthetic Review: Meds/Allgs Chart Reviewed, Consent Obtained/Reviewed and Anes Risks/Benef Reviewed Patient Risk: Intermediate Procedure Risk: Low Anesthetic Plan Anesthetic Plan: GA Disposition: Standard PACU
[2023-05-28] VITALS (7 sets, daily range): BP systolic 113–149; BP diastolic 59–89; PULSE 75–98; RESP 18–20; TEMP 36.3–36.6; O2SAT 98–100; BMI 39.9
[2023-05-28] MEDS: Lactated Ringers 1,000 ML 100 ML IVCONT (07:37)
--- NOTE | 2023-05-28 07:43 | P.OP_ITS ---
Operative Note Operative Note Date of Service: 05/28/23 Narrative: Operative Note Narrative: Preop diagnosis: 1. Right carpal tunnel syndrome 2. Right hand soft tissue mass Postop diagnosis: Same Procedure: 1. Right carpal tunnel release 2. Right hand soft tissue mass excisional biopsy Surgeon: Janet Parada MD Anesthesia: General Anesthesia Findings: A somewhat spherical solid soft tissue mass measuring approximately 1.2 cm in diameter. It was white and muhammad, and had some yellow material within it. Implants: none Tourniquet time: 20 minutes EBL: 5.0 ml Specimen: right hand soft tissue mass sent for histopathology Drains: None Complications: None Disposition: Brought to the recovery room in stable condition Plan: Follow-up in 10-14 days for wound check, suture removal and to check pathology Indications: The patient is a 43 year old man with right carpal tunnel syndrome and a right hand soft tissue mass located superficial to the right index finger A1 laurel . The risks and benefits of operative treatment, i ncluding but not limited to risk of damage to blood vessels, nerves, tendons, infection, recurrence, persistent pain or numbness, incomplete resolution of preoperative symptoms, or need for further surgery were discussed with the patient and they wished to proceed with surgery. Procedure: Once consent was obtained patient was brought back to the operating suite and placed in the operating table in a supine position. . Perioperative antibiotics and anesthesia was administered by the anesthesia team. A tourniquet was applied to the proximal aspect of the right upper extremity and the limb was prepped and draped in a standard surgical fashion. The limb was elevated exsanguinated with Esmarch bandage and the tourniquet inflated to 250 mm of mercury for a total tourniquet time of 20 minutes. Once assured that we had a good block, a 2.0 cm longitudinal incision was made centered over the right carpal tunnel. The incision was made through the skin to the subcutaneous tissues using a #15 blade. Dissection was made down to the level of the transverse carpal ligament with care being taken to protect the palmar cutaneous nerve. Once the transverse carpal ligament was clearly v isualized, a longitudinal incision was made in the transverse carpal ligament 1st using a #15 blade, then using tenotomy scissors under direct visualization. Care was taken to look for and protect the motor branch of the median nerve when seen in this area. Once satisfied with our carpal tunnel release the wound was irrigated with normal saline. I then turned my attention to the soft tissue mass. An oblique incision was made directly over the soft tissue mass which was situated over the right index finger A1 laurel. The incision was made through the skin to the subcutaneous tissues using a 15. Blade. I then carefully dissected down to the level of the mass using tenotomy scissors. The mass was white and muhammad in color, a soft tissue solid mass, and measured approximately 1.2 cm in diameter. It was carefully dissected from the surrounding soft tissues using tenotomy scissors. It was somewhat attached to the under surface of the skin, and also had some loose attachments to the flexor tendon sheath. It was dissected free and removed from the patient's hand. Was then placed on the back table to be sent for histopathology. No further masses were appreciated. I did make an incision in the mass while it was on the back table and had some yellow creamy but somewhat gelatinous type material within it. At this point the tourniquet was deflated and hemostasis obtained with a brief period of local pressure and bipolar electrocautery. The wounds were copiously irrigated with normal saline. The skin edges were reapproximated with 5-0 nylon suture. The wounds were infiltrated with some 1% lidocaine with epinephrine for postop pain control and a sterile dressing was applied. The patient appears to have tolerated the procedure well and with no complications. All digits were well vascularized conclusion of the case.
--- NOTE | 2023-05-28 07:43 | MHC.SHP ---
Pre-Procedural Eval Section A Date of Service: 05/28/23 The patient is an INPATIENT: No Changes since office visit: No Cold of Flu in the past 2 weeks, No New Medical Problems, No Changes in Medication and No Patient answered all questions The History & Physical has been completed within 30 days and I have reviewed it.: Yes Section B Chief Complaint: Unspecified mononeuropathy of right upper limb Allergies: Allergies Allergy/AdvReac Type Severity Reaction Status Date / Time No Known Allergies Allergy Verified 04/22/23 10:05 [No Known Allergies*] Plan I have reviewed the history and physical and performed a pertinent physical examination on my patient. No changes have occurred unless specified. Time Spent With Patient Time: Total time managing care of this patient today ____ minutes.
== END 2023-05-28 11:34 | disposition home or self-care (01) ==
PROVIDERS: PCP Internal Medicine; Visit Provider Orthopaedic Surgery
PROC: (CPT 64721; principal; 2023-05-28 08:40)
PROC: (CPT 64721; 2023-05-28 08:40)
DX: G56.01 Carpal tunnel syndrome, right upper limb (principal); R20.0 Anesthesia of skin; R20.2 Paresthesia of skin; L72.0 Epidermal cyst; M79.7 Fibromyalgia; F41.8 Other specified anxiety disorders
CPT/HCPCS: 64721; 11421; 26115; 88304; J0131; J0690; J1100; J1885; J2250; J2405; J3010

== ENCOUNTER 2023-06-10 14:20 | Outpatient (AMB) | payer MEDICAID, SELFPAY ==
--- NOTE | 2023-06-10 14:29 | MHC.OFFVIS ---
Intake Intake Visit Reasons: PO RT CTR hand mass exc. 05/28/23AR Intake Note: Jonny 43 yr old male presents today for his P/O right hand CTR and cyst excision from 05/28/[address] Parada. Sutures removed and steri strips applied. Allergies No Known Allergies [No Known Allergies*] Allergy (Verified 06/10/23 14:31) HPI PO RT CTR hand mass exc. 05/28/23AR HPI Details Jonny is a 43 year old right hand dominant man who presents S/P right carpal tunnel release & excision of mass, DOS: 05/28/23. He says he is doing well and his sensation is improving. He still has some mild numbness in the median nerve distribution of his hand but this is improving and he had good resolution of his nighttime symptoms He continues to have intermittent numbness in the small finger of his left hand, and has known left carpal & cubital tunnel syndrome. 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 [facility] Medical History Anxiety and depression Chronic recurrent pilonidal cyst Epigastric abdominal pain GERD (gastroesophageal reflux disease) Hx of sleep apnea Joint pain Stomach tumor (benign) Surgical History History of esophagogastroduodenoscopy (EGD) History of excision of pilonidal cyst Hx of colonoscopy (~12/2020) Family History Father Prostate cancer Mother Diabetes Maternal Grandmother Breast cancer Social History Household Members: Spouse and Children Alcohol intake: never Patient Tobacco Use Status: Never used Tobacco Substance Use Type: Marijuana 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al status: unemployed 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: right hand Review of Systems Const All systems reviewed & are unremarkable except as noted in HPI and below Physical Exam Const General: cooperative, healthy appearing and no acute distress Orientation/consciousness: patient oriented x3 HEENT Head: Yes normocephalic and Yes atraumatic Eyes EOM: EOMs intact bilaterally Resp Effort & Inspection: normal respiratory effort and able to speak in complete sentences Cardio Jugular venous distension: no JVD Skin General skin exam: turgor normal Rashes: no rashes Neuro General: patient oriented x3 Extrem Other: The patient was alert oriented and in no acute distress The incisions are healing well with no erythema drainage or evidence of infection. Sutures removed and Steri-Strips applied He can make a fist and extend all his digits Sensation is improved but not yet normal in the median nerve distribution Cap refill is brisk Pathology report 05/28/23 Diagnosis Soft tissue, right hand mass, excision:? Epidermal inclusion cyst. Nerve Conduction Study: IMPRESSION:? 1. Mild bilateral median neuropathy across carpal tunnel. 2. Mild left ulnar neuropathy across cubital tunnel. ? M Andrés Mcdonnell MD 08/21/2022? Psych Appearance: grossly normal Affect: normal affect Attitude: cooperative Assessment & Plan Assessment & Plan (1) Carpal tunnel syndrome of right wrist: Code(s): G56.01 - Carpal tunnel syndrome, right upper limb (2) Carpal tunnel syndrome of left wrist: Code(s): G56.02 - Carpal tunnel syndrome, left upper limb (3) Cubital tunnel syndrome on left: Code(s): G56.22 - Lesion of ulnar nerve, left upper limb (4) Epidermal inclusion cyst: Code(s): L72.0 - Epidermal cyst Plan Assessment & Plan: 1. Right epidermal inclusion cyst, S/P excision DOS: 05/28/23 2. Right Carpal tunnel syndrome, S/P release DOS: 05/28/23 Pre-operative symptoms intermittent, but daily, worse at night. Now with improved but not yet normal sensation, and good resolution of his nighttime symptoms. The patient appears to be doing well post-operatively I educated him about the post-operative course I discussed activity modifications, he is to lift nothing heavier than a cellphone for the next two weeks He will perform gentle ROM exercises at home He should avoid any underwater activities for the next 5 days He should gently massage about the incision site to reduce the risk of hypersensitivity He can follow up prn 3. Left Carpal tunnel syndrome, mild 4. Left Cubital tunnel syndrome, mild Symptoms intermittent, but daily, worse at night. The ulnar nerve numbness is more bothersome on this side This is not as bothersome as his right hand He can follow up prn to discuss treatment. Scribed for Janet Parada MD by Jose Siddiqui, medical records secretary, on 06/10/23 at 2:45 PM, EST. Coding Level of Care Code Global (20141) Diagnoses Carpal tunnel syndrome of right wrist G56.01 Carpal tunnel syndrome of left wrist G56.02 Cubital tunnel syndrome on left G56.22 Epidermal inclusion cyst L72.0
== END 2023-06-10 14:46 | disposition home or self-care (01) ==
PROVIDERS: PCP Internal Medicine; Visit Provider Orthopaedic Surgery
DX: G56.03 Carpal tunnel syndrome, bilateral upper limbs (principal); G56.22 Lesion of ulnar nerve, left upper limb; L72.0 Epidermal cyst
CPT/HCPCS: 99024

== ENCOUNTER → 2023-06-10 14:20 | Outpatient (BNVA) | payer MEDICAID, SELFPAY | PROVIDERS: PCP Internal Medicine; Visit Provider Orthopaedic Surgery ==

== ENCOUNTER 2023-06-16 10:13 | Outpatient (AMB) | payer MEDICAID, SELFPAY ==
--- NOTE | 2023-06-16 10:24 | A.OFFVIS_ITS ---
Intake Vital Signs 06/16/23 10:32 Height 5 ft 7 in Weight 257 lb BMI 40.2 BP 110/70 Blood Pressure Location Lt brachial Position Sitting Intake Visit Reasons: Rectal bleeding, abd pain, CT follow up Intake Note: Patient is seen in office for CT scan results, following rectal bleeding & abdominal pain. Patient c/o: admits to continued abdominal pain daily in the am, continued rectal bleeding after bm, denies constipation, here for results Bell Ringer Required: No Accompanied by: Self / Same As Patient Allergies No Known Allergies [No Known Allergies*] Allergy (Verified 06/16/23 10:32) Medication List - Last Reconciled 06/16/23 by Davey Man MD acetaminophen ER (Tylenol 8 Hour) 650 mg PO Q8H PRN baclofen 20 mg PO TID carbamide peroxide 6.5% (Ear Drops (carbamide peroxide)) 0 drps otic (ears) cholecalciferol (vitamin D3) 25 mcg PO DAILY duloxetine (Cymbalta) 20 mg PO DAILY escitalopram oxalate (Lexapro) 5 mg PO DAILY famotidine 40 mg PO DAILY gabapentin 100 mg PO BEDTIME methylcellulose (laxative) (Citrucel) 500 mg PO TID multivitamin 1 tab PO DAILY omeprazole 20 mg PO DAILY oxycodone-acetaminophen 5-325 mg 1 tab PO Q6H PRN simethicone (Gas Relief (simethicone)) 125 mg PO TID-QID PRN sucralfate 1 g PO QID HPI HPI Comments History of Present Illness Details Patient returns today to review the results of his CT abdomen and pelvis. He continues to report abdominal pain in the upper abdomen. As previously noted, he is a 43-year-old male patient returning to the office for evaluation rectal pain and bleeding. He reports difficulty moving his bowels with need to strain to have a bowel movement. He occasionally has pain in the anal skin while having a bowel movement and then notes bleeding after the bowel movement. He also develops upper abdominal pain mainly in the left upper quadrant after having the bowel movement. He reports undergoing a colonoscopy which did revealed grade 1 internal hemorrhoids and a polyp. He feels his symptoms are worsening. 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 He has a large transverse incision extending from the left upper quadrant to the right upper quadrant. CT of the abdomen and pelvis does reveal thickening of the gastric wall but no evidence of bowel obstruction or dilated colon. [facility] Medical History Hx of sleep apnea GERD (gastroesophageal reflux disease) Anxiety and depression Joint pain Chronic recurrent pilonidal cyst Epigastric abdominal pain Stomach tumor (benign) Surgical History History of excision of pilonidal cyst Hx of colonoscopy (~12/2020) History of esophagogastroduodenoscopy (EGD) Family History Father Prostate cancer Mother Diabetes Maternal Grandmother Breast cancer Social History Household Members: Spouse and Children Alcohol intake: never Patient Tobacco Use Status: Never used Tobacco Substance Use Type: Marijuana 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al status: unemployed 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: right hand Review of Systems Const All systems reviewed & are unremarkable except as noted in HPI and below GI Reports abdominal pain, Reports bloating, Reports hematochezia and Reports constipation Physical Exam Const General: no acute distress Nutritional Appearance: well nourished Orientation/consciousness: patient oriented x3 Limitations: no limitations HEENT Head: Yes normocephalic and Yes atraumatic Resp Effort & Inspection: normal respiratory effort, no audible wheezes, no cough and no respiratory distress GI Other: Exam deferred Inspection: Yes normal to inspection Palpation (GI): Soft to palpation, nontender and no guarding Rectal Exam - Male: Yes deferred Neuro General: patient oriented x3 Extrem General: Yes normal to inspection Assessment & Plan Assessment & Plan (1) Abdominal pain, LUQ: Code(s): R10.12 - Left upper quadrant pain Plan: Patient found to have thickened gastric wall by CT which may be artifact however given history, I would recommend follow-up with Gastroenterology for possible upper endoscopy. He will call his gastroenterology office to schedule follow-up appointment. (2) Rectal bleeding: Code(s): K62.5 - Hemorrhage of anus and rectum Plan: Patient found to have evidence of a anal fissure on his previous examination. He continues to be symptomatic with pain and bleeding. We discussed lateral internal sphincterotomy versus continued nonoperative measures. I recommended he be evaluated by Gastroenterology and once his upper abdominal symptoms are resolved consider the lateral internal sphincterotomy if his symptoms are not improved by then. Expressed understanding and agrees with the plan. Coding Level of Care Code Est Pt Level 3 (55880) Diagnoses Abdominal pain, LUQ R10.12 Rectal bleeding K62.5
[2023-06-16 10:32] VITALS: BP 110/70; BMI 40.2
== END 2023-06-16 10:55 | disposition home or self-care (01) ==
PROVIDERS: PCP Internal Medicine; Visit Provider Surgery
DX: R10.12 Left upper quadrant pain (principal); K62.5 Hemorrhage of anus and rectum
CPT/HCPCS: 99213

== ENCOUNTER → 2023-06-16 10:13 | Outpatient (BNVA) | payer MEDICAID, SELFPAY | PROVIDERS: PCP Internal Medicine; Visit Provider Surgery | DX: R10.12 Left upper quadrant pain (principal); K62.5 Hemorrhage of anus and rectum | CPT/HCPCS: 99212 ==

== ENCOUNTER 2024-05-06 19:43 | Emergency (ER) | payer MEDICAID, SELFPAY ==
--- NOTE | ~2024-05-06 | CT_ITS ---
EXAMINATION: CT SOFT TISSUE NECK WITH CONTRAST CLINICAL INFORMATION: Reason for Exam soft tissue posterior neck pain/mass COMPARISON: None available. TECHNIQUE: Following the intravenous administration of 60 mL of Omnipaque 350 intravenous contrast, helical imaging was performed in the axial plane with generation of coronal and sagittal reformatted images. This CT examination was performed using dose optimization techniques as appropriate, variously including the following: *Automated exposure control *Adjustment of mA and/or kV according to patient size (this includes techniques or standardized protocols for targeted exams where dose is matched to indication/reason for exam; i.e. extremities or head) *Use of iterative reconstruction technique DLP: 660 mGy-cm FINDINGS: There is focal subcutaneous edema posteriorly overlying the right occipital bone. There are several underlying nodular foci in the deeper subcutaneous tissues measuring up to approximately 1 cm which are suggestive of reactive lymph nodes. The nasopharynx, oropharynx, and hypopharynx are patent. No mucosal pharyngeal abnormality is seen. The parapharyngeal fat is preserved. Prominent bilateral submandibular ducts are noted, left greater than right, of uncertain clinical significance with no obstructing calculus seen. The electric scoop operator, parotid, and submandibular spaces otherwise appear normal and symmetric bilaterally. Superficial subcutaneous cyst overlying the left parotid gland measures approximately 1 cm in diameter. Scattered additional bilateral cervical lymph nodes are seen without significant enlargement. The carotid vasculature is patent. The thyroid gland is unremarkable. The lung apices are clear. Visualized portions of the brain parenchyma are unremarkable. The mastoid air cells are well aerated. The paranasal sinuses are clear. The visualized orbits are unremarkable. The mandibular condyles are well-seated in the condylar fossa. No acute fracture is seen. CT/CT soft tissue neck w IV con IMPRESSION: 1. Focal subcutaneous edema posteriorly overlying the right occipital bone suspicious for localized infection/inflammation. Several underlying nodular foci in the deeper subcutaneous tissues measuring up to approximately 1 cm are suggestive of reactive lymph nodes. Clinical follow-up is recommended. If symptoms persist or worsen, repeat imaging may be performed. 2. Prominent bilateral submandibular ducts, left greater than right, of uncertain chronicity and clinical significance. No obstructing calculus identified. 3. Superficial subcutaneous cyst overlying the left parotid gland measuring approximately 1 cm in diameter.
--- NOTE | 2024-05-06 19:45 | ED_ITS ---
HPI - Skin/Abscess/Foreign Bdy General Chief complaint: General Medical Stated complaint: Cyst on head painful Time Seen by Provider: 05/06/24 21:29 Source: patient and RN notes reviewed Mode of arrival: ambulatory Limitations: no limitations History of Present Illness ED Provider: Kaylie Washington PA-C HPI narrative: This is a 44-year-old male, with a history of depression, anxiety, GERD, who presents emergency department with complaints of painful posterior head lump x4 days. Patient states that he initially noticed this area 6 months ago however reports increased pain, size over the last several days. Patient states that over the last few days he has noticed increased pain and swelling to his posterior head. No injury or trauma to his head. He states that he thought this started off as a pimple however this is increased in size. He admits that his partner has been picking at the area noticed some drainage from the area. He denies any fevers or chills. He has been taking ibuprofen. He states that he saw his primary care physician yesterday and was referred to Dr. De Oliveira to be evaluated on . He states that the pain has only increased, as well as the swelling and can not tolerate the pain any longer. No other complaints or concerns at this time. Onset (ago): day(s) Location: head Quality: aching Pain Consistency: constant Relieving factors: none Exacerbating factors: none Context: none Associated symptoms: denies other symptoms Treatments prior to arrival: none Related Data Home Medications ?Medication ?Instructions ?Recorded ?Confirmed escitalopram oxalate 5 mg tablet 5 mg PO DAILY 08/29/20 06/16/23 (Lexapro) acetaminophen 650 mg 650 mg PO Q8H PRN Pain 01/29/21 06/16/23 tablet,extended release (Tylenol 8 Hour) baclofen 20 mg tablet 20 mg PO TID 07/09/22 06/16/23 cholecalciferol (vitamin D3) 25 25 mcg PO DAILY 07/09/22 06/16/23 mcg (1,000 unit) capsule duloxetine 20 mg capsule,delayed 20 mg PO DAILY 07/09/22 06/16/23 release (Cymbalta) gabapentin 100 mg capsule 100 mg PO BEDTIME 07/09/22 06/16/23 multivitamin 1 tab PO DAILY 07/09/22 06/16/23 carbamide peroxide 6.5 % ear drops 0 drp otic (ears) 04/10/23 06/16/23 (Ear Drops (carbamide peroxide)) Previous Rx's ?Medication ?Instructions ?Recorded famotidine 40 mg tablet 40 mg PO DAILY #30 tabs 12/31/21 omeprazole 20 mg capsule,delayed 20 mg PO DAILY #30 caps 12/31/21 release simethicone 125 mg chewable tablet 125 mg PO TID-QID PRN abdominal 12/31/21 (Gas Relief (simethicone)) distention #90 tabs sucralfate 1 gram tablet 1 g PO QID #90 tabs 07/25/22 methylcellulose (laxative) 500 mg 500 mg PO TID #90 tabs 03/10/23 tablet (Citrucel) oxycodone-acetaminophen 5 mg-325 1 tab PO Q6H PRN pain #10 tabs 05/28/23 mg tablet cephalexin 500 mg capsule 500 mg PO QID 10 days #40 caps 05/07/24 oxycodone 5 mg tablet 5 mg PO Q6H PRN pain #12 tabs 05/07/24 sulfamethoxazole 800 1 tab PO BID 10 days #20 tabs 05/07/24 mg-trimethoprim 160 mg tablet (Bactrim DS) Allergies Allergy/AdvReac Type Severity Reaction Status Date / Time ibuprofen AdvReac Gastrointestinal Verified 05/06/24 19:49 Hemorrhage Review of Systems 2 Review of Systems: Yes all other systems are reviewed and are negative Constitutional: Constitutional: Reports as per [facility] Past Medical History Medical History Hx of sleep apnea GERD (gastroesophageal reflux disease) Anxiety and depression Joint pain Chronic recurrent pilonidal cyst Epigastric abdominal pain Stomach tumor (benign) Surgical History History of excision of pilonidal cyst Hx of colonoscopy (~12/2020) History of esophagogastroduodenoscopy (EGD) Family History Family History Father Prostate cancer Mother Diabetes Maternal Grandmother Breast cancer Social History Social History Household Members: Spouse and Children Alcohol intake: never Patient Tobacco Use Status: Never used Tobacco Substance Use Type: Marijuana Advance Directives: No Advance Directives Information Provided: No Do you have a plan to hurt others: No Plan 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al status: unemployed 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 No erythema, or drainage. Head: Yes normal to inspection, Yes normocephalic and Yes atraumatic E ars: hearing grossly normal bilaterally General nose exam: Normal external nose present Face and sinus: Yes normal facial exam Mouth: Normal oral and palatal mucosa present, oropharynx normal and moist mucous membranes Throat: Yes posterior oropharynx normal Eyes: General: appearance normal, both eyes and all related structures E yelids: Yes eyelids normal Conjunctivae: conjunctivae normal Sclerae: s clerae normal Pupils: Equal, round and reactive pupils present EOM: EOMs intact bilaterally Neck: Other: No lymphadenopathy noted Neck: Yes normal visual inspection, Yes full ROM and Yes no lymphadenopathy Lymphatic: no lymphadenopathy noted Chest: Chest palpation & inspection: normal inspection of the chest Resp: Effort & Inspection: normal respiratory effort and able to speak in complete sentences Auscultation: clear to auscultation bilaterally, no crackles, no rales, no rhonchi and no wheezes Cardio: Rate: regular rate Rhythm: regular rhythm Heart sounds: S1 normal heart sound present and S2 normal heart sound present GI: Inspection: Yes normal to inspection Skin: General skin exam: no rashes or lesions noted Trauma: no lacerations or abrasions Wounds: no wounds Neuro: General: patient oriented x3 and moves all extremities Cranial nerves: Yes Equal, round and reactive pupils present Extrem: General: Yes normal to inspection Right upper extremity: normal to inspection Left upper extremity: normal to inspection Right lower extremity: normal to inspection Left lower extremity: normal to inspection Course Course Course Narrative: This is an RME performed by Cheyanne Colmenares CNP: Additional HPI, ROS, PE not included below will be deferred to primary provider. Patient is a 44 year old male who presents emergency department for evaluation of a large painful cyst to the right posterior head. Reports initial onset approximately six months ago, was a small area and was able to self express pus from it. However over the past week noticed increased swelling extending closer towards the ear. Was evaluated at his primary care doctor's office yesterday, was referred to a general surgeon for incision and drainage but does not have an appointment until next Reevaluation(s) Reevaluation #1: Labs returned, he has no leukocytosis, stable H&H, no inflammatory marker elevation noted. Soft tissue neck CT pending. Vital signs are within normal limits. He has been medicated with morphine which has provided him with some relief. Will await CT scan for further diagnostics Time: 01:17 Reevaluation #2: This patient was signed out to me at change of shift pending the results of the CT scan. The patient had a CT scan of the neck which shows an area of infection of the scalp in the region of the right occipital bone behind the right ear. There are also some lymph nodes associated with this. The CT reading does not describe any definite abscess. This may be more of a phlegmon. On physical exam the patient has some soft tissue swelling in the region of the scalp behind his right ear over the occipital bone. The skin of the scalp does not show any signs of redness, only some swelling and tenderness. The patient will be given 2 g of IV cefazolin and also 1 tablet of Bactrim DS. He will be prescribed cephalexin 500 mg q.i.d. and Bactrim DS b.i.d.. He apparently already has an appointment this with Dr. De Oliveira of General surgery. He should keep this appointment. He should also stay in touch with his regular doctor. Daryn Nichols Time: 03:16 Medications Administered Discontinued Medications Generic Name Dose Route Start Last Admin Trade Name Freq PRN Reason Stop Dose Admin Iohexol 60 ml 05/06/24 23:49 05/06/24 23:55 Iohexol 350 Mg/Ml 100 Ml Infus..Btl IV 05/06/24 23:50 60 ml ONCE ONE Administration Morphine Sulfate 4 mg 05/06/24 23:01 05/06/24 23:24 Morphine Sulfate 4 Mg/Ml Cartridge IVPUSH 05/06/24 23:02 4 mg ONCE ONE Administration Protocol Morphine Sulfate 4 mg 05/07/24 00:27 05/07/24 00:48 Morphine Sulfate 4 Mg/Ml Cartridge IVPUSH 05/07/24 00:28 4 mg ONCE ONE Administration Protocol Medical Decision Making Medical Decision Making [facility] Narrative: This is a 44-year-old male who presents emergency department with complaints of posterior head pain x4 days. Arrival, vital signs within normal limits. Patient has tenderness palpation along the occiput with induration noted, no erythema or warmth. No drainage. No fluctuance. Differential diagnoses include abscess, cellulitis, lymphadenopathy, mass. Discussed case attending physician, Dr. Troncoso, will obtain basic labs, and CT soft tissue. Differential Diagnosis Differential Diagnoses: The differential diagnosis associated with the presentation includes See above Admission/Observation Consideration of admission/observation: Escalation of care including admission/observation considered Lab Data [facility] Lab Attestation statement: I reviewed the patient's lab results. 05/06/24 23:11 05/06/24 23:11 Labs: Lab Results 05/06/24 Range/Units 23:11 WBC 7.8 (4.8-10.8) X10*3/uL RBC 5.19 (4.60-5.80) X10*6/uL Hgb 16.0 (14.0-18.0) g/dl Hct 46.1 (42.0-52.0) % MCV 88.8 (80.0-98.0) fL MCH 30.8 (27.0-33.0) pg MCHC 34.7 (31.0-36.0) g/dl RDW 12.3 (11.0-16.0) % Plt Count 232 (160-400) X10*3/uL MPV 9.6 (9.4-12.4) fL Immature Gran % (Auto) 0.5 H (0.0-0.4) % Neut % (Auto) 53.6 (45-73) % Lymph % (Auto) 32.1 (20-40) % Swain % (Auto) 10.1 (2-11) % Eos % (Auto) 2.9 (0-4) % Baso % (Auto) 0.8 (0-2) % Lymph # (Auto) 2.5 (1.2-4.9) X10*3/uL Swain # (Auto) 0.8 (0.1-1.2) X10*3/uL Eos # (Auto) 0.2 (0.0-0.4) X10*3/uL Baso # (Auto) 0.1 (0.0-0.2) X10*3/uL Abs Immat Gran (auto) 0.04 H (0.00-0.03) X10*3/uL Absolute Neuts (auto) 4.2 (2.0-8.3) x10*3/uL Absolute Nucleated RBC 0.000 (0.0-0.012) X10*3/uL Nucleated RBC % (auto) 0.0 (0.0-0.2) /100WBC ESR 3 (0-15) MM/HR Sodium 141 (135-145) mmol/L Potassium 4.0 (3.3-5.1) mmol/L Chloride 104 (96-108) mmol/L Carbon Dioxide 30 H (22-29) mmol/L Anion Gap 11 L (12-20) BUN 12 (9-16) mg/dL Creatinine 1.14 (0.5-1.4) mg/dL Estim Creat Clear Calc 99.3 Estimated GFR > 60 Random Glucose 112 (60-115) mg/dL Calcium 9.8 (8.4-10.2) mg/dL Total Bilirubin 0.5 (0.0-1.0) mg/dL AST 19 (5-37) U/L ALT 33 (0-40) U/L Alkaline Phosphatase 91 (39-117) U/L C-Reactive Protein < 0.10 (< or = 0.50) mg/dL Total Protein 7.7 (6.5-8.0) g/dL Albumin 4.8 (3.5-5.0) g/dL Radiology Impression Discussion of test interpretation with radiology: I have reviewed the radiologist's reading. External Record Review External record reviewed: Inpatient record, Office record, Outpatient record, Prior outpatient labs, Prior outpatient radiology, Primary care record and Outside ED record Discharge Plan Discharge Clinical Impression: Infection of scalp Patient Disposition: Home, Self-Care Additional Instructions: CT scan shows that you have an area of what looks like an infection in your scalp behind your right ear. You have been started on antibiotics. Please take the cephalexin 4 times a day, approximately every 6 hours. Please take the trimethoprim/sulfamethoxazole (also known as Bactrim) twice a day, approximately every 12 hours. You may take 2 extra-strength acetaminophen (Tylenol) up to 3 times a day as needed for pain. I have also sent a prescription for oxycodone tablets that you may use as needed for pain. Apply warm compresses to your scalp area several times a day for 5-10 minutes. Keep your appointment on with a surgeon. Also stay in touch with your regular doctor. Return to the emergency room if significantly worse. Prescriptions: New cephalexin 500 mg capsule 500 mg PO QID 10 Days Qty: 40 0RF sulfamethoxazole-trimethoprim [Bactrim DS] 800-160 mg tablet 1 tab PO BID 10 Days Qty: 20 0RF oxycodone 5 mg tablet 5 mg PO Q6H PRN (Reason: pain) Qty: 12 0RF Rx Instructions: Partial Fill upon patient request. No Action sucralfate 1 gram tablet 1 g PO QID Qty: 90 1RF Citrucel 500 mg tablet 500 mg PO TID Qty: 90 5RF oxycodone-acetaminophen 5-325 mg tablet 1 tab PO Q6H PRN (Reason: pain) Qty: 10 0RF Rx Instructions: Partial Fill upon patient request. acetaminophen [Tylenol 8 Hour] 650 mg tablet extended release 650 mg PO Q8H PRN (Reason: Pain) escitalopram oxalate [Lexapro] 5 mg tablet 5 mg PO DAILY simethicone [Gas Relief (simethicone)] 125 mg tablet,chewable 125 mg PO TID-QID PRN (Reason: abdominal distention) Qty: 90 2RF omeprazole 20 mg capsule,delayed release(DR/EC) 20 mg PO DAILY Qty: 30 11RF famotidine 40 mg tablet 40 mg PO DAILY Qty: 30 5RF gabapentin 100 mg capsule 100 mg PO BEDTIME duloxetine [Cymbalta] 20 mg capsule,delayed release(DR/EC) 20 mg PO DAILY baclofen 20 mg tablet 20 mg PO TID multivitamin Tablet 1 tab PO DAILY cholecalciferol (vitamin D3) 25 mcg (1,000 unit) capsule 25 mcg PO DAILY Ear Drops (carbamide peroxide) 6.5 % drops 0 drp otic (ears) Referrals: Braden Byrne MD [Primary Care Provider] - (scalp infection) Ras De Oliveira MD [Physician] - (scalp infection) Print Language: Kosovan
[2024-05-06 19:46] VITALS: BP 127/93; PULSE 77; RESP 18; TEMP 36.4; O2SAT 98; BMI 39.1
[2024-05-06 22:05] VITALS: BP 139/86; PULSE 67; RESP 16; TEMP 36.3; O2SAT 97
--- NOTE | 2024-05-06 23:15 | PC.NURSE ---
20g IV inserted in L-AC- labs obtained- report given to Oscar RN
[2024-05-06 23:17] LABS: MANUAL DIFF FLAG NO
[2024-05-06 23:19] LABS: Basophils Absolute Auto 0.1 X10*3/uL (0.0-0.2); Basophils Percent Auto 0.8 % (0-2); Eosinophils Absolute Auto 0.2 X10*3/uL (0.0-0.4); Eosinophils Percent Auto 2.9 % (0-4); Hematocrit 46.1 % (42.0-52.0); Imm Gran Abs Auto 0.04 X10*3/uL (0.00-0.03); Imm Gran Pct Auto 0.5 % (0.0-0.4); Lymphocytes Absolute Auto 2.5 X10*3/uL (1.2-4.9); Lymphocytes Percent Auto 32.1 % (20-40); Mean Corpuscular HGB Conc 34.7 g/dl (31.0-36.0); Mean Corpuscular Hemoglobin 30.8 pg (27.0-33.0); Mean Corpuscular Volume 88.8 fL (80.0-98.0); Mean Platelet Volume 9.6 fL (9.4-12.4); Monocytes Absolute Auto 0.8 X10*3/uL (0.1-1.2); Monocytes Percent Auto 10.1 % (2-11); Neutrophils Absolute Auto 4.2 x10*3/uL (2.0-8.3); Neutrophils Percent Auto 53.6 % (45-73); Platelet Count 232 X10*3/uL (160-400); Red Blood Count 5.19 X10*6/uL (4.60-5.80); Red Cell Distribution Width 12.3 % (11.0-16.0); White Blood Count 7.8 X10*3/uL (4.8-10.8)
[2024-05-06 23:24] VITALS: RESP 16
[2024-05-06] MEDS: Morphine Sulfate 4 MG/ML CARTRIDGE IVPUSH (23:24)
[2024-05-06 23:35] LABS: Alanine Aminotransferase 33 U/L (0-40); Albumin Level 4.8 g/dL (3.5-5.0); Alkaline Phosphatase 91 U/L (39-117); Anion Gap 11 (12-20); Aspartate Amino Transferase 19 U/L (5-37); Bilirubin Total 0.5 mg/dL (0.0-1.0); Blood Urea Nitrogen 12 mg/dL (9-16); C Reactive Protein < 0.10 mg/dL (< or = 0.50); Calcium 9.8 mg/dL (8.4-10.2); Carbon Dioxide 30 mmol/L (22-29); Chloride 104 mmol/L (96-108); Creatinine Clr Calc Pharmacy 99.3; Estimated Glomerular Filt Rate > 60; Glucose Random 112 mg/dL (60-115); Sodium 141 mmol/L (135-145); Total Protein 7.7 g/dL (6.5-8.0)
[2024-05-06 23:53] LABS: Erythrocyte Sedimentation Rate 3 MM/HR (0-15)
[2024-05-06] MEDS: iohexoL 350 MG/ML 100 ML INFUS..BTL 60 ML IV (23:55)
[2024-05-07] VITALS: BP 142/73; PULSE 62; RESP 16; TEMP 36.7; O2SAT 96
[2024-05-07 00:48] VITALS: RESP 18
[2024-05-07] MEDS: Morphine Sulfate 4 MG/ML CARTRIDGE IVPUSH (00:48)
[2024-05-07 01:59] VITALS: BP 155/80; PULSE 60; RESP 16; TEMP 36.1; O2SAT 97
[2024-05-07] MEDS: Sulfamethox/Trimeth 800/160 TABLET 1 TAB PO (03:27)
[2024-05-07] MEDS: oxyCODONE HCl Immed Release 5 MG TABLET PO (03:27)
[2024-05-07] MEDS: ceFAZolin Sodium 3 GM in 0.9 % Sodium Chloride 100 ML IV (03:37)
[2024-05-07 03:51] VITALS: BP 138/89; PULSE 66; RESP 18; TEMP 36.7; O2SAT 97
== END 2024-05-07 04:20 | disposition home or self-care (01) ==
PROVIDERS: Physician Assistant Medical; Emergency Provider Emergency Medicine; PCP Internal Medicine
DX: L03.811 Cellulitis of head [any part, except face] (principal); F12.90 Cannabis use, unspecified, uncomplicated; Z79.899 Other long term (current) drug therapy
CPT/HCPCS: 36415; 70491; 80053; 85025; 85652; 86140; 96374; 96375; 99284; J0690; J2270; Q9967

== ENCOUNTER 2024-05-12 13:24 | Outpatient (AMB) | payer MEDICAID, SELFPAY ==
--- NOTE | 2024-05-12 13:24 | A.OFFVIS_ITS ---
Intake Visit Reasons: growth posterior head, ? Cyst Intake Note: This patient presents for a growth posterior head, ? cyst. Pt c/o; reports pain, reports one two abx, reports decreased in size. 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 Accompanied by: Mother Allergies ibuprofen Adverse Reaction (Verified 05/12/24 13:30) Gastrointestinal Hemorrhage Medication List - Last Reconciled 05/12/24 by Ras De Oliveira MD acetaminophen ER (Tylenol 8 Hour) 650 mg PO Q8H PRN baclofen 20 mg PO TID carbamide peroxide 6.5% (Ear Drops (carbamide peroxide)) 0 drps otic (ears) cephalexin 500 mg PO QID 10 days cholecalciferol (vitamin D3) 25 mcg PO DAILY duloxetine (Cymbalta) 20 mg PO DAILY escitalopram oxalate (Lexapro) 5 mg PO DAILY famotidine 40 mg PO DAILY gabapentin 100 mg PO BEDTIME methylcellulose (laxative) (Citrucel) 500 mg PO TID multivitamin 1 tab PO DAILY omeprazole 20 mg PO DAILY oxycodone 5 mg PO Q6H PRN oxycodone-acetaminophen 5-325 mg 1 tab PO Q6H PRN simethicone (Gas Relief (simethicone)) 125 mg PO TID-QID PRN sucralfate 1 g PO QID sulfamethoxazole-trimethoprim 800-160 mg (Bactrim DS) 1 tab PO BID 10 days HPI HPI growth posterior head, ? Cyst: Details: 44-year-old male referred for a scalp cyst. He has had this pimple like lesion on the scalp cyst at the occipital area for several months now. This was painful last week and he went to the ER. He was instructed to see me here in the office. He describes some drainage from the area. He did not have an I and D in the past. He says that this area as well as a periodically. [facility] Medical History (Updated 05/12/24 @ 13:40 by Ras De Oliveira MD) Scalp cyst Hx of sleep apnea GERD (gastroesophageal reflux disease) Anxiety and depression Joint pain Chronic recurrent pilonidal cyst Epigastric abdominal pain Stomach tumor (benign) Surgical History History of excision of pilonidal cyst Hx of colonoscopy (~12/2020) History of esophagogastroduodenoscopy (EGD) Family History Father Prostate cancer Mother Diabetes Maternal Grandmother Breast cancer Social History Household Members: Spouse and Children Alcohol intake: never Patient Tobacco Use Status: Never used Tobacco Substance Use Type: Marijuana 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al status: unemployed 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: right 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 Review of Systems Const Denies chills and Denies fever(s) Card Denies chest pain, Denies dyspnea and Denies dyspnea on exertion Resp Denies cough, Denies dyspnea and Denies dyspnea on exertion GI Denies hematochezia and Denies change in bowel habits Denies hematuria and Denies difficulty urinating Musc Details: Has chronic pain with fibromyalgia Denies back pain and Denies limited range of motion Skin/Breast Details: Has had history of multiple skin cysts Neuro Denies focal weakness and Denies convulsions Psych Denies depression and Denies mood swings Physical Exam Const Other: Obese looking General: comfortable and no acute distress Orientation/consciousness: patient oriented x3 HEENT Other: Cystic induration on the scalp in the occipital area to the right, the bony prominence adjacent to this more laterally; the cystic induration measured about 1 cm Neck Neck: Yes no lymphadenopathy Resp Auscultation: clear to auscultation bilaterally Cardio Rhythm: regular rhythm GI Palpation (GI): Soft to palpation, nontender and no guarding Neuro General: patient oriented x3 Assessment & Plan Assessment & Plan (1) Scalp cyst: Code(s): L72.9 - Follicular cyst of the skin and subcutaneous tissue, unspecified Category: Medical Plan: He has a scalp cysts as described above. He wants this removed in view of recurrent symptoms. I explained the technique of excision under local anest hesia in the office. I reviewed the risks including but not limited to bleeding, infections, postop pain, as well as the benefits and alternatives He says he understands and wants to proceed. This will be done on his next visit here in the office. Coding Level of Care Code New Pt Level 3 (87258) Diagnoses Scalp cyst L72.9
== END 2024-05-12 13:38 | disposition home or self-care (01) ==
LOC: HO.HGS 13:24
PROVIDERS: PCP Internal Medicine; Visit Provider Surgery
DX: L72.9 Follicular cyst of the skin and subcutaneous tissue, unspecified (principal)
CPT/HCPCS: 99203

== ENCOUNTER → 2024-05-12 13:24 | Outpatient (BNVA) | payer MEDICAID, SELFPAY | PROVIDERS: PCP Internal Medicine; Visit Provider Surgery | DX: L72.9 Follicular cyst of the skin and subcutaneous tissue, unspecified (principal) | CPT/HCPCS: 99202 ==

== ENCOUNTER 2024-05-18 13:06 | Outpatient (REF) | payer MEDICAID, SELFPAY | END 2024-05-18 13:07 | disposition home or self-care (01) | LOC: HO.LNP 13:06 | PROVIDERS: PCP Internal Medicine; Visit Provider Surgery | DX: L72.9 Follicular cyst of the skin and subcutaneous tissue, unspecified (principal) | CPT/HCPCS: 11422; 88304 ==

== ENCOUNTER 2024-05-18 13:06 | Outpatient (AMB) | payer MEDICAID, SELFPAY ==
--- NOTE | 2024-05-18 13:07 | MHC.OFFVIS ---
Intake Visit Reasons: growth posterior head, ? 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 Cyst: Details: He is here for excision of a scalp cyst. [facility] Medical History Scalp cyst Hx of sleep apnea GERD (gastroesophageal reflux disease) Anxiety and depression Joint pain Chronic recurrent pilonidal cyst Epigastric abdominal pain Stomach tumor (benign) Surgical History History of excision of pilonidal cyst Hx of colonoscopy (~12/2020) History of esophagogastroduodenoscopy (EGD) Family History Father Prostate cancer Mother Diabetes Maternal Grandmother Breast cancer Social History Household Members: Spouse and Children Alcohol intake: never Patient Tobacco Use Status: Never used Tobacco Substance Use Type: Marijuana 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al status: unemployed 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 The cystic induration on the right occipital area was prepped and draped. Lidocaine 1% was used for local anesthesia. I made an elliptical incision on the skin surrounding this induration using blade 15. And this carried down through the full-thickness of the skin subcutaneous fat to excise this entire indurated area. The area removed was about 1 point 4 cm in diameter I closed the incision with full-thickness nylon 3-0 interrupted sutures. Bacitracin was then applied. He tolerated procedure well. There were no immediate complications. [id number] scalp/neck/hands/feet/genitalia 1.1cm-2cm Procedure code (CPT) selection complete Assessment & Plan Assessment & Plan (1) Scalp cyst: Code(s): L72.9 - Follicular cyst of the skin and subcutaneous tissue, unspecified Category: Medical Plan: He was given wound care instructions. He can take Tylenol or ibuprofen for pain. He we will come back to the office for removal sutures. Coding Level of Care Code Procedure Only Diagnoses Scalp cyst L72.9 CPT Codes Scalp/Neck/Hands/Feet/Genetalia - CPT: 68301-[id number] scalp/neck/hands/feet/genitalia 1.1cm-2cm ([id number])
== END 2024-05-18 13:53 | disposition home or self-care (01) ==
PROVIDERS: PCP Internal Medicine; Referring Provider Internal Medicine; Visit Provider Surgery
DX: L72.0 Epidermal cyst (principal)
CPT/HCPCS: 11422

== ENCOUNTER 2024-05-30 10:22 | Outpatient (AMB) | payer MEDICAID, SELFPAY ==
--- NOTE | 2024-05-30 10:28 | MHC.OFFVIS ---
Intake Visit Reasons: s/p excision posterior scalp cyst Intake Note: This patient presents for a follow-up assessment status post excision posterior scalp cyst. Pt c/o; reports no complaints. 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 He says he is doing well and denies any significant complaints. [facility] Medical History Scalp cyst Hx of sleep apnea GERD (gastroesophageal reflux disease) Anxiety and depression Joint pain Chronic recurrent pilonidal cyst Epigastric abdominal pain Stomach tumor (benign) Surgical History History of excision of pilonidal cyst Hx of colonoscopy (~12/2020) History of esophagogastroduodenoscopy (EGD) Family History Father Prostate cancer Mother Diabetes Maternal Grandmother Breast cancer Social History Household Members: Spouse and Children Alcohol intake: never Patient Tobacco Use Status: Never used Tobacco Substance Use Type: Marijuana 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al status: unemployed 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: right 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 Review of Systems Const Denies chills and Denies fever(s) Card Denies chest pain, Denies dyspnea and Denies dyspnea on exertion Resp Denies cough, Denies dyspnea and Denies dyspnea on exertion GI Denies hematochezia and Denies change in bowel habits Denies hematuria and Denies difficulty urinating Musc Denies back pain and Denies limited range of motion Neuro Denies focal weakness and Denies convulsions Psych Denies depression and Denies mood swings Physical Exam Const General: comfortable and no acute distress HEENT Other: Excision site on the occipital area well healed, not infected, sutures intact Assessment & Plan Assessment & Plan (1) Scalp cyst: Code(s): L72.9 - Follicular cyst of the skin and subcutaneous tissue, unspecified Category: Medical Plan: Status post excision. The incision is well healed. I removed all his sutures. His path report shows an epidermal inclusion cyst He can follow up on a p.r.n. basis. Coding Level of Care Code Global (75084) Diagnoses Scalp cyst L72.9
== END 2024-05-30 10:35 | disposition home or self-care (01) ==
PROVIDERS: PCP Internal Medicine; Referring Provider Family Medicine; Visit Provider Surgery
DX: L72.9 Follicular cyst of the skin and subcutaneous tissue, unspecified (principal)
CPT/HCPCS: 99024

== ENCOUNTER → 2024-05-30 10:22 | Outpatient (BNVA) | payer MEDICAID, SELFPAY | PROVIDERS: PCP Internal Medicine; Referring Provider Family Medicine; Visit Provider Surgery | DX: Z09 Encounter for follow-up examination after completed treatment for conditions other than malignant neoplasm (principal); Z87.2 Personal history of diseases of the skin and subcutaneous tissue | CPT/HCPCS: 99212 ==

== ENCOUNTER 2024-06-27 07:42 | Emergency (ER) | payer MEDICAID, SELFPAY ==
--- NOTE | ~2024-06-27 | XR_ITS ---
EXAMINATION: XR FOOT, LEFT CLINICAL INFORMATION: Patient states pain in foot for a couple of days, no known injury . Overlying cellulitis toes 2-3. COMPARISON: 04/16/2023. TECHNIQUE: AP, lateral, and oblique views of the left foot. FINDINGS: Bone mineralization is normal. Mild degenerative changes in the first metatarsophalangeal joint. There is a suggestion of focal cortical thinning/concavity along the distal vincent of the second and third toes when compared with the other toes. Prominent posterior calcaneal spurring. Focal cystic lucencies along the superior aspect of the navicular with subtle lucencies in the subjacent cuboid and faint soft tissue calcifications. XR/XR foot LT min 3V IMPRESSION: 1. There is the suggestion of focal cortical thinning/concavity along the distal vincent of the second and third toes when compared with the other toes. Correlation with clinical exam recommended to determine further management. 2. Focal cystic lucencies along the superior aspect of the navicular. 3. CT scan or MRI could be considered for further evaluation. This study was presented today June 27, 2024 for interpretation. Stat results provided at this time as requested by referring provider. Electronically signed by: Aundrea Strickland MD 06/27/2024 10:59 AM EDT
[2024-06-27 07:45] VITALS: BP 128/69; PULSE 93; RESP 18; TEMP 36.6; O2SAT 98; BMI 39.2
--- NOTE | 2024-06-27 09:13 | ED.LOWEXIN ---
HPI - Extremity Injury (Lower) General Chief Complaint: Extremity Injury, Lower Stated Complaint: l leg swollen Time Seen by Provider: 06/27/24 08:59 Source: patient, RN notes reviewed and old records reviewed Mode of arrival: ambulatory Limitations: no limitations History of Present Illness ED Provider: APRIL FERRELL HPI Narrative: 44 yo male PMH SANYA ( CPAP use), GERD, anxiety and depression, joint pain, chronic recurrent pilonidal cyst, benign stomach tumor, polyarthralgia, fibromyalgia presenting with increasing redness and pain at top of left foot without inciting injury. 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 At this visit it has become more difficult to walk and put pressure on as it feels tight and painful. Denies fevers, reports hasn't taken a temp but didn't feel like he was feverish. Denies any interventions tried at this point, however states tried soaking with some epsom salt as part of a new foot regimen he's been doing with his gf over the past few weeks. Related Data Home Medications ?Medication ?Instructions ?Recorded ?Confirmed escitalopram oxalate 5 mg tablet 5 mg PO DAILY 08/29/20 05/12/24 (Lexapro) acetaminophen 650 mg 650 mg PO Q8H PRN Pain 01/29/21 05/12/24 tablet,extended release (Tylenol 8 Hour) baclofen 20 mg tablet 20 mg PO TID 07/09/22 05/12/24 cholecalciferol (vitamin D3) 25 25 mcg PO DAILY 07/09/22 05/12/24 mcg (1,000 unit) capsule duloxetine 20 mg capsule,delayed 20 mg PO DAILY 07/09/22 05/12/24 release (Cymbalta) gabapentin 100 mg capsule 100 mg PO BEDTIME 07/09/22 05/12/24 multivitamin 1 tab PO DAILY 07/09/22 05/12/24 carbamide peroxide 6.5 % ear drops 0 drp otic (ears) 04/10/23 05/12/24 (Ear Drops (carbamide peroxide)) Previous Rx's ?Medication ?Instructions ?Recorded famotidine 40 mg tablet 40 mg PO DAILY #30 tabs 12/31/21 omeprazole 20 mg capsule,delayed 20 mg PO DAILY #30 caps 12/31/21 release simethicone 125 mg chewable tablet 125 mg PO TID-QID PRN abdominal 12/31/21 (Gas Relief (simethicone)) distention #90 tabs sucralfate 1 gram tablet 1 g PO QID #90 tabs 07/25/22 methylcellulose (laxative) 500 mg 500 mg PO TID #90 tabs 03/10/23 tablet (Citrucel) oxycodone-acetaminophen 5 mg-325 1 tab PO Q6H PRN pain #10 tabs 05/28/23 mg tablet cephalexin 500 mg capsule 500 mg PO QID 10 days #40 caps 05/07/24 oxycodone 5 mg tablet 5 mg PO Q6H PRN pain #12 tabs 05/07/24 sulfamethoxazole 800 1 tab PO BID 10 days #20 tabs 05/07/24 mg-trimethoprim 160 mg tablet (Bactrim DS) cephalexin 500 mg capsule 500 mg PO Q8H 7 days #21 caps 06/27/24 doxycycline hyclate 100 mg tablet 100 mg PO BID 7 days #14 tabs 06/27/24 Allergies Allergy/AdvReac Type Severity Reaction Status Date / Time ibuprofen AdvReac Gastrointestinal Verified 06/27/24 07:47 Hemorrhage PMFSH Past Medical History Attestation statement: The following information was validated with the patient. Source: nursing notes reviewed Medical History Scalp cyst Hx of sleep apnea GERD (gastroesophageal reflux disease) Anxiety and depression Joint pain Chronic recurrent pilonidal cyst Epigastric abdominal pain Stomach tumor (benign) Surgical History History of excision of pilonidal cyst Hx of colonoscopy (~12/2020) History of esophagogastroduodenoscopy (EGD) Family History Family History Father Prostate cancer Mother Diabetes Maternal Grandmother Breast cancer Social History Social History Household Members: Spouse and Children Alcohol intake: never Patient Tobacco Use Status: Never used Tobacco Substance Use Type: Marijuana Advance Directives: No Advance Directives Information Provided: No Do you have a plan to hurt others: No Plan 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al status: unemployed 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: right hand Physical Exam Vital Signs: Vital Signs: Last Vital Signs Temp 98 F 06/27/24 07:45 Pulse 93 06/27/24 07:45 Resp 18 06/27/24 07:45 BP 128/69 06/27/24 07:45 Pulse Ox 98 06/27/24 07:45 O2 Del Method Room Air 06/27/24 07:45 BMI result Body Mass Index 39.2 Vital signs stable, afebrile General: Well appearing, in no acute distress. Skin: +overlying erythema noted to the base of the left 2nd and 3rd toes. No open wounds, ulcers. Warm and tender to palpation. Full ROM intact to all toes on left foot. 2+ pt/dp pulse intact. Head: Normocephalic, atraumatic. EENT: Hearing is intact b/l. Conjunctiva clear. PERRLA. Cardiac: Chest wall symmetric Lungs: Normal respiratory effort without accessory muscle use Ext: see above Neuro: AOx3. Normal speech.Ambulating with steady gait. Psych: Appropriate mood and affect. Responds appropriately to questions. Course Course Course Narrative: 1134 -- CBC without leukocytosis or left shift. Chemistry without acute electrolyte abnormality requiring intervention. No YANELIS. Normal liver function. CRP slightly elevated to .90. X-ray of left foot shows suggestion of focal cortical thinning/concavity along the distal tuft of the 2nd and 3rd toes when compared to the other toes. There is focal cystic lucencies along the superior aspect of the navicular bone. Consider CT scan/MRI. Patient does not have history of diabetes. There is no white count. Vitals are stable, afebrile. I have low suspicion for osteomyelitis at this time. Patient does not have history of AFib. No concern for distal thrombosis. Will treat for overlying cellulitis with doxy and Keflex. Discussed this with patient he is agreeable. Area marked with skin pen. Patient advised to return if erythema extends outside this line. Patient has remained stable throughout ED visit today. Discussed worrisome signs and symptoms and when to return to the ED. All questions answered at this time. Patient is agreeable with disposition and stable for discharge. Medications Administered Discontinued Medications Generic Name Dose Route Start Last Admin Trade Name Freq PRN Reason Stop Dose Admin Ketorolac Tromethamine 30 mg 06/27/24 09:26 06/27/24 09:39 Ketorolac Tromethamine 30 Mg/Ml Vial IM 06/27/24 09:27 30 mg ONCE ONE Administration Medical Decision Making Medical Decision Making [facility] Narrative: 44 yo male PMH SANYA ( CPAP use), GERD, anxiety and depression, joint pain, chronic recurrent pilonidal cyst, benign stomach tumor, polyarthralgia, fibromyalgia presenting with increasing redness and pain at top of left foot without inciting injury. Vital signs stable, afebrile. He is nontoxic-appearing and in no acute distress. On exam, there is overlying erythema noted to the base of the left 2nd and 3rd toes. No open wounds, ulcers. Warm and tender to palpation. Full ROM intact to all toes on left foot. 2+ pt/dp pulse intact. Plan for basic labs to rule out infectious etiology. XR ordered to rule out gout/ calcifications/ osteo. Toradol given for pain control Differential Diagnosis Differential Diagnoses: The differential diagnosis associated with the presentation includes Cellulitis, injury/trauma, arthritis, gout/pseudogout, insect bite , osteo Admission/Observation not indicated Lab Data [facility] Lab Attestation statement: I reviewed the patient's lab results. As above 06/27/24 10:01 06/27/24 10:01 Labs: Lab Results 06/27/24 Range/Units 10:01 WBC 9.8 (4.8-10.8) X10*3/uL RBC 4.58 L (4.60-5.80) X10*6/uL Hgb 14.3 (14.0-18.0) g/dl Hct 41.4 L (42.0-52.0) % MCV 90.4 (80.0-98.0) fL MCH 31.2 (27.0-33.0) pg MCHC 34.5 (31.0-36.0) g/dl RDW 12.5 (11.0-16.0) % Plt Count 233 (160-400) X10*3/uL MPV 9.4 (9.4-12.4) fL Immature Gran % (Auto) 0.5 H (0.0-0.4) % Neut % (Auto) 66.3 (45-73) % Lymph % (Auto) 21.4 (20-40) % Scott % (Auto) 9.1 (2-11) % Eos % (Auto) 2.2 (0-4) % Baso % (Auto) 0.5 (0-2) % Lymph # (Auto) 2.1 (1.2-4.9) X10*3/uL Scott # (Auto) 0.9 (0.1-1.2) X10*3/uL Eos # (Auto) 0.2 (0.0-0.4) X10*3/uL Baso # (Auto) 0.1 (0.0-0.2) X10*3/uL Abs Immat Gran (auto) 0.05 H (0.00-0.03) X10*3/uL Absolute Neuts (auto) 6.5 (2.0-8.3) x10*3/uL Absolute Nucleated RBC 0.000 (0.0-0.012) X10*3/uL Nucleated RBC % (auto) 0.0 (0.0-0.2) /100WBC ESR 13 (0-15) MM/HR Sodium 142 (135-145) mmol/L Potassium 4.2 (3.3-5.1) mmol/L Chloride 108 (96-108) mmol/L Carbon Dioxide 27 (22-29) mmol/L Anion Gap 11 L (12-20) BUN 11 (9-16) mg/dL Creatinine 1.09 (0.5-1.4) mg/dL Estim Creat Clear Calc 103.9 Estimated GFR > 60 Random Glucose 95 (60-115) mg/dL Uric Acid 5.6 (3.4-7.0) mg/dL Calcium 9.3 (8.4-10.2) mg/dL Total Bilirubin 0.7 (0.0-1.0) mg/dL AST 19 (5-37) U/L ALT 27 (0-40) U/L Alkaline Phosphatase 98 (39-117) U/L C-Reactive Protein 0.90 H (< or = 0.50) mg/dL Total Protein 7.1 (6.5-8.0) g/dL Albumin 4.3 (3.5-5.0) g/dL Independent Interpretation I performed an independent interpretation of an: Plain X-Ray Interpretation: X-ray left foot without noted calcification or fracture, agree with radiologist's interpretation. Radiology Impression Discussion of test interpretation with radiology: I have reviewed the radiologist's reading. Radiologist Impression: EXAMINATION: XR FOOT, LEFT CLINICAL INFORMATION: Patient states pain in foot for a couple of days, no known injury . Overlying cellulitis toes 2-3. COMPARISON: 04/16/2023. TECHNIQUE: AP, lateral, and oblique views of the left foot. FINDINGS: Bone mineralization is normal. Mild degenerative changes in the first metatarsophalangeal joint. There is a suggestion of focal cortical thinning/concavity along the distal vincent of the second and third toes when compared with the other toes. Prominent posterior calcaneal spurring. Focal cystic lucencies along the superior aspect of the navicular with subtle lucencies in the subjacent cuboid and faint soft tissue calcifications. XR/XR foot LT min 3V IMPRESSION: 1. There is the suggestion of focal cortical thinning/concavity along the distal vincent of the second and third toes when compared with the other toes. Correlation with clinical exam recommended to determine further management. 2. Focal cystic lucencies along the superior aspect of the navicular. 3. CT scan or MRI could be considered for further evaluation. This study was presented today June 27, 2024 for interpretation. Stat results provided at this time as requested by referring provider. Electronically signed by: Aundrea Strickland MD 06/27/2024 10:59 AM EDT External Record Review External record reviewed: Inpatient record Prescription Management I considered prescription management with: Pain Medication (Tylenol, Motrin) and Antibiotic (Keflex, doxy) Social Determinants Patient?s care significantly limited by Social Determinants of Health including: Other Social Determinant of Health Critical Care Time Critical Care Time Critical Care Time: No Discharge Plan Discharge Clinical Impression: Cellulitis Patient Disposition: Home, Self-Care Instructions: Cellulitis (ED), Warm Compress or Soak (ED) Additional Instructions: Your blood work today is reassuring. Your xrays do not show evidence of fracture or bone destruction. You likely have a superficial skin infection that needs treatment with antibiotics. You will be given a prescription for antibiotics (Keflex and Doxycycline). Please take the antibiotics as directed for the full course of the medication. I recommend you take 600mg ibuprofen every 6 hours or Tylenol 650mg every 6 hours as needed for pain. If needed, you can alternate these medications so that you take one medication every 3 hours. For example, at noon take ibuprofen, then at 3pm take Tylenol, then at 6pm take ibuprofen. The area of redness on your foot has been marked with skin pen. If the redness begins extending outside of these lines despite treatment, please return to the ED. Follow up with PCP as needed. You have also been provided with a referral to a retail operations manager. You may call them to establish care. They will not call you. Return with new or worsening symptoms. In the case of an emergency call 911. Prescriptions: New doxycycline hyclate 100 mg tablet 100 mg PO BID 7 Days Qty: 14 0RF cephalexin 500 mg capsule 500 mg PO Q8H 7 Days Qty: 21 0RF No Action sucralfate 1 gram tablet 1 g PO QID Qty: 90 1RF Citrucel 500 mg tablet 500 mg PO TID Qty: 90 5RF cephalexin 500 mg capsule 500 mg PO QID 10 Days Qty: 40 0RF sulfamethoxazole-trimethoprim [Bactrim DS] 800-160 mg tablet 1 tab PO BID 10 Days Qty: 20 0RF oxycodone 5 mg tablet 5 mg PO Q6H PRN (Reason: pain) Qty: 12 0RF Rx Instructions: Partial Fill upon patient request. oxycodone-acetaminophen 5-325 mg tablet 1 tab PO Q6H PRN (Reason: pain) Qty: 10 0RF Rx Instructions: Partial Fill upon patient request. acetaminophen [Tylenol 8 Hour] 650 mg tablet extended release 650 mg PO Q8H PRN (Reason: Pain) escitalopram oxalate [Lexapro] 5 mg tablet 5 mg PO DAILY simethicone [Gas Relief (simethicone)] 125 mg tablet,chewable 125 mg PO TID-QID PRN (Reason: abdominal distention) Qty: 90 2RF omeprazole 20 mg capsule,delayed release(DR/EC) 20 mg PO DAILY Qty: 30 11RF famotidine 40 mg tablet 40 mg PO DAILY Qty: 30 5RF gabapentin 100 mg capsule 100 mg PO BEDTIME duloxetine [Cymbalta] 20 mg capsule,delayed release(DR/EC) 20 mg PO DAILY baclofen 20 mg tablet 20 mg PO TID multivitamin Tablet 1 tab PO DAILY cholecalciferol (vitamin D3) 25 mcg (1,000 unit) capsule 25 mcg PO DAILY Ear Drops (carbamide peroxide) 6.5 % drops 0 drp otic (ears) Referrals: Braden Byrne MD [Primary Care Provider] - Dean Shah MD [Physician] - Stand Alone Forms: Work/School Release Print Language: Hebrew
[2024-06-27] MEDS: Ketorolac Tromethamine 30 MG/ML VIAL IM (09:39)
[2024-06-27 10:12] LABS: MANUAL DIFF FLAG NO
[2024-06-27 10:16] LABS: Basophils Absolute Auto 0.1 X10*3/uL (0.0-0.2); Basophils Percent Auto 0.5 % (0-2); Eosinophils Absolute Auto 0.2 X10*3/uL (0.0-0.4); Eosinophils Percent Auto 2.2 % (0-4); Hematocrit 41.4 % (42.0-52.0); Hemoglobin 14.3 g/dl (14.0-18.0); Imm Gran Abs Auto 0.05 X10*3/uL (0.00-0.03); Imm Gran Pct Auto 0.5 % (0.0-0.4); Lymphocytes Absolute Auto 2.1 X10*3/uL (1.2-4.9); Lymphocytes Percent Auto 21.4 % (20-40); Mean Corpuscular HGB Conc 34.5 g/dl (31.0-36.0); Mean Corpuscular Hemoglobin 31.2 pg (27.0-33.0); Mean Corpuscular Volume 90.4 fL (80.0-98.0); Mean Platelet Volume 9.4 fL (9.4-12.4); Monocytes Absolute Auto 0.9 X10*3/uL (0.1-1.2); Monocytes Percent Auto 9.1 % (2-11); Neutrophils Absolute Auto 6.5 x10*3/uL (2.0-8.3); Neutrophils Percent Auto 66.3 % (45-73); Platelet Count 233 X10*3/uL (160-400); Red Blood Count 4.58 X10*6/uL (4.60-5.80); Red Cell Distribution Width 12.5 % (11.0-16.0); White Blood Count 9.8 X10*3/uL (4.8-10.8)
[2024-06-27 10:30] LABS: Alanine Aminotransferase 27 U/L (0-40); Albumin Level 4.3 g/dL (3.5-5.0); Alkaline Phosphatase 98 U/L (39-117); Anion Gap 11 (12-20); Aspartate Amino Transferase 19 U/L (5-37); Bilirubin Total 0.7 mg/dL (0.0-1.0); Blood Urea Nitrogen 11 mg/dL (9-16); Calcium 9.3 mg/dL (8.4-10.2); Carbon Dioxide 27 mmol/L (22-29); Chloride 108 mmol/L (96-108); Creatinine Clr Calc Pharmacy 103.9; Estimated Glomerular Filt Rate > 60; Glucose Random 95 mg/dL (60-115); Potassium 4.2 mmol/L (3.3-5.1); Sodium 142 mmol/L (135-145); Total Protein 7.1 g/dL (6.5-8.0); Uric Acid 5.6 mg/dL (3.4-7.0)
[2024-06-27 11:19] LABS: Erythrocyte Sedimentation Rate 13 MM/HR (0-15)
[2024-06-27 11:41] VITALS: BP 128/69; PULSE 93; RESP 18; TEMP 36.6; O2SAT 98
== END 2024-06-27 11:42 | disposition home or self-care (01) ==
PROVIDERS: Physician Assistant Medical; Emergency Provider Emergency Medicine Emergency Medical Services; PCP Internal Medicine
DX: L03.032 Cellulitis of left toe (principal); M79.672 Pain in left foot; Z79.899 Other long term (current) drug therapy
CPT/HCPCS: 36415; 73630; 80053; 84550; 85025; 85652; 86140; 96372; 99283; 99284; J1885

== ENCOUNTER 2025-05-08 07:05 | Emergency (ER) | payer SELFPAY ==
[2025-05-08 07:50] VITALS: BP 136/70; PULSE 84; RESP 18; TEMP 36.6; O2SAT 96; BMI 42.2
--- OUTSIDE RECORDS SUMMARY | 2025-05-08 07:53 | XMS_ITS | Clinical Summary ---
Author Organization [employer] Address [address] [place] [address] Care Team Providers Care Printing Sales Representative Name Role Phone Dolly Cruz MD Primary Care Pro vider Allergies No known active allergies Medications * This document contains information received from the source organization and may not represent a complete record from that organization. famotidine (Pepcid) 40 MG tablet Take 40 mg by mouth in the morning. 04/19/2022 Active simethicone (Mylicon) 125 MG chewable tablet Chew every 6 (six) hours if needed. Active sucralfate (Carafate) 1 g tablet Take by mouth before breakfast, before lunch, before evening meal, and at bedtime. Active omeprazole (PriLOSEC) [address] capsule Take 40 mg by mouth before breakfast. Do not crush or chew. Active Multiple Vitamin (multivitamin) capsule Take 1 capsule by mouth in the morning. Active Active Problems Problem Noted Date Diagnosed Date Great toe pain, left 03/09/2023 Assessment & Plan (03/09/2023 6:38 PM EDT): -reports having x last 2 years ongoing pain in left great toe,no trauma,no erythema,no swelling -saw bilingual case manager x this before and per pt was r/o to have any autoimmune and no gout. -continue tylenol prn -topical diclofenac prn -XR referred today -referred to clay maker today due to chronicity Obstructive sleep apnea syndrome 03/05/2023 Assessment & Plan (03/09/2023 6:30 PM EDT): Reports hx of of SANYA-dxed last year -not using CPAP x issues w mask and machine -advised pt to call his previous sleep med provider to have checked machine Depression, major, recurrent, severe with psycho sis 02/06/2023 Assessment & Plan (03/09/2023 6:36 PM EDT): PHQ9: 24 at previous visit -thinks feeling this way x last 10 years since of his GM, denies SI ,had thought years ago but no plans Denies to me maniac symptoms but reports auditory hallucinations -told that he is worthless, denies voices are telling him to hurt him or others, no guns at home. From chart review of meds -at some point took aripiprazole - eval pt at previous visit in 02/2023 and actually after discussion there is more concern x possible zulay/depression symptoms? - is going to refer to clinical pharmacology and to outside psychotx---PT states never got a call for this --I asked today for info x BH and psychiatric services at [facility] and gave info to pt to call and schedule apt -will monitor ,will hold x now on prescribing any antidepressant given in doubt of actual dx , if only depression vs other mood dx -f in 4 weeks Assessment & Plan (02/06/2023 7:16 PM EDT): PHQ9: 24-thinks feeling this way x last 10 years since of his GM, denies SI ,had thought years ago but no plans Denies to me maniac symptoms but reports auditory hallucinations -told that he is worthless, denies voices are telling him to hurt him or others, no guns at home. From chart review of meds -at some point took aripiprazole -BH eval pt today and actually after discussion there is more concern x possible zulay/depression symptoms? - is going to refer to clinical pharmacology and to outside psychotx -will monitor ,will hold x now on prescribing any antidepressant given in doubt of actual dx , if only depression vs other mood dx Class 3 severe obesity due t o excess calories without serious comorbidity with body mass index (BMI) of 40.0 to 44.9 in adult 02/06/2023 Assessment & Plan (03/09/2023 6:35 PM EDT): Advised pt to improve diet and exercise,discussed healthy life style -discussed manager social services referral -referred already-pd to get a call -will consdier GLP1? At future visit if no weight loss -but wnl hb1AC -may consider bariatric surgery referral -will discuss at future apt Assessment & Plan (02/06/2023 7:09 PM EDT): Advised pt to improve diet and exercise,discussed healthy life style -discussed manager social services referral -referred today -will discuss about SANYA symptoms at next apt -will consdier GLP1? Fibromyalgia 02/06/2023 Assessment & Plan (03/09/2023 6:33 PM EDT): Pt f w bilingual case manager x it--from last visit note obtained by Zaria 01/29/2021? Pt used to take escitalopram,mirtazapine? But pt reports seen recently--will try to get last visit report again -requested today to PATRIZIA -tylenol prn -continue care w bilingual case manager -pt will benefit from depression tx -as doc in depression problem Assessment & Plan (02/06/2023 9:49 PM EDT): Pt f w bilingual case manager x it--from last visit note obtained by JIMY today in 01/29/2021? Pt used to take escitalopram,mirtazapine? But pt reports seen recently -tylenol prn -continue care w bilingual case manager -pt will benefit from depression tx -as doc in depression problem Gastric ulcer 02/06/2023 Assessment & Plan (03/09/2023 6:39 PM EDT): Pt f w GI -EGD 02/2023: Hiatal hernia, erosive esopahgitis, non obstructive Schatski ring,patchy erythema with flecks of blood,mod to severe duodenitis --pd to get bx result --will try as well to get from here)requested today to JIMY-Odilia Mishra) -colonoscopy 02/2023 ( done x [facility]): Granular appearing 8-10 mm sessile polyp around scar ,grade 1 int hemorrhoids--pd path reports-will tryto get report but as well advised pt to f w GI x ongoing management -all meds currently taking are prescribed by his GI -I called pt after he left to discuss possible cause of elevated CO2 and low anion gap chronically--possible from excess of antiacids? --I left message given was not able to reach to try To avoid excess sucralfate and continue PPis and famotidine x now -will repeat chem in 4 to 6 weeks --also will ask nurse staff to try to reach pt to give info -px today metamucil to help w hemorrhoids-states has anusol at home and advise to f w GI x still having [facility]-pt states will call his specialist Assessment & Plan (02/06/2023 7:07 PM EDT): Pt f w GI -EGD 02/2023: Hiatal hernia, erosive esopahgitis, non obstructive Schatski ring,patchy erythema with flecks of blood,mod to severe duodenitis --pd to get bx result -colonoscopy 02/2023 ( done x [facility]): Granular appearing 8-10 mm sessile polyp around scar ,grade 1 int hemorrhoids--pd path -all meds currently taking are prescribed by his GI -pt will ask x bx results at his next GI visit and will bring here Nodule of skin of right hand 02/06/2023 Assessment & Plan (03/09/2023 6:34 PM EDT): Has nodularity in 2nd finger-palmar surf of right hand -chronic causing discomfort -possible tendon cyst ? -referred to hand surgeon today Assessment & Plan (02/06/2023 7:09 PM EDT): Has nodularity in 2nd finger-palmar surf of right hand -chronic causing discomfort -possible tendon cyst ? -will refer to hand surgeon at next apt Facial erythema 02/06/2023 Assessment & Plan (03/09/2023 6:37 PM EDT): Possible rosacea -referred to gag writer -has apt x this month Assessment & Plan (02/06/2023 7:13 PM EDT): Possible rosacea -referred to gag writer today Health care maintenance 02/06/2023 Assessment & Plan (03/09/2023 6:41 PM EDT): -vaccines: s/p tdap 2016 , covid 19 x2--Bivalent dose today here, hep B not immune -start series today -referred to ophthalmology today x blurry vision Assessment & Plan (02/06/2023 7:15 PM EDT): -labs x annual exam today in fasting -pt agreed to have STI testing including HIV to have for baseline -vaccines: s/p tdap 2017 , covid 19 x2--advised x booster a vaccine clinic Resolved Problems Problem Noted Date Diagnosed Date Resolved Date Acute low back pain 03/05/2023 03/09/20 23 Immunizations Immunization Administration Dates Next Due Hep B, adult 03/09/2023 Influenza injectable quadriv alent preservative free 06/30/2022,09/21/2018,10/02/2017 Pfizer Covid-19 Vaccine 12+ Bivalent 03/09/2023 Tdap 06/30/2022,10/02/2017 Family History Medical History Relation Name Comments HTN Father Pancreatic cancer,throat cancer Maternal Grandmother Diabetes Mother Relation Name Status Comments Father Maternal Grandmother Mother Social History Tobacco Use Types Packs/Day Years Used Date Smoking Tobacco: Never Passive Smoke Exposure: Never Smokeless Tobacco: Never Tobacco Cessation:Counseling Given: Not Answered Alcohol Use Standard Drinks/Week Comments Yes 0 (1 standard drink = 0.6 oz pur e alcohol) social Depression Answer Date Recorded Patient Health Questionnaire-9 Score 24 02/06/2023 Housing Stability Answer Date Recorded What is your housing situation today? I have danyellecherise velazquez 08/06/[address] you li ve. Do you have problems with any of the following? None of the above 08/06/2023 Food Insecurity Answer Date Recorded Within the past 12 months, y ou worried that your food would run out before you got money to buy more: Often true 08/06/2023 Within the past 12 months,th e food you bought just didn't last and you didn't have enough money to get more: Often true 11/2022 Transportation Answer Date Recorded In the past 12 months, has l ack of transportation kept you from medical appts, meetings, work or from getting things needed for daily living? No 08/06/2023 Utilities Answer Date Recorded In the past 12 months, has t he electric, gas, oil or water company threatened to shut off services in your home? No 08/06/2023 Depression Answer Date Recorded Patient Health Questionnaire-2 Score 6 02/06/2023 Sex and Gender Information Value Date Recorded Sex Assigned at Male 08/04/2022 10:35 AM EDT Legal Sex Male 10:35 AM EDT Gender Identity Male 08/04/2022 10:35 AM EDT Sexual Orientation Straight 08/04/2022 10 :35 AM EDT Last Filed Vital Signs Vital Sign Reading Time Taken Comments Blood Pressure 136/77 05/05/2024 9:09 AM EDT Pulse 78 05/05/2024 9:09 AM EDT Temperature 36.7 C (98.1 F) 05/05/2024 9:09 AM EDT Respiratory Rate 20 05/05/2024 9:09 AM EDT Oxygen Saturation 97% 05/05/2024 9:09 AM EDT Inhaled Oxygen Concentration - - Weight 113 kg (249 lb 3.2 oz) 05/05/2024 9:09 AM EDT Height 170.2 cm (5' 7 ) 05/05/2024 9:09 AM EDT Body Mass Index 39.03 05/05/2024 9:09 AM EDT Plan of Treatment Health Maintenance Due Date Last Done Comments CT Colonography 1980 Colonoscopy 1980 Colorectal Cancer Screening 1980 FIT DNA/Cologuard 1980 FIT 1980 FOBT 1980 Sigmoidoscopy 1980 Disability Screening 1980 Alcohol/Substance Use Screening 1992 Family Planning (PISQ) 1995 HPV Vaccines (1 - Male 3-dos e series) 1995 Hepatitis B Vaccines (2 of 3 - 19+ 3-dose series) 2023 03/09/2023 Depression Monitoring 08/09/2023 02/06/2023 , 02/06/2023 SDOH Screening 01/31/2024 01/30/2023 COVID-19 Vaccine (4 - 2024-2 5 season) 2024 03/09/2023, 03/02/2021, 02/02/2021 Tobacco Screening 05/05/2025 05/05/2024 Influenza Vaccine (#1) 2025 , 09/21/2018, 10/02/2017 Lipid Panel 02/14/2028 02/13/2023, 07/01/2022 Zoster Vaccines (1 of 2) 2030 DTaP/Tdap/Td Vaccines (3 - T d or Tdap) 06/30/2032 06/30/2022, 10/02/2017 RSV Patients and Patients Aged 60 years or older (1 - 1-dose 75+ series) 2055 HIV Screening Completed 02/13/2023, 05/22/2020 Hepatitis C Screening Completed 02/13/2023 , 05/22/2020 HIB Vaccines Aged Out No longer eligi ble based on patient's age to complete this topic Hepatitis A Vaccines Aged Out No long er eligible based on patient's age to complete this topic IPV Vaccines Aged Out No longer eligi ble based on patient's age to complete this topic Meningococcal B Vaccine Aged Out No l onger eligible based on patient's age to complete this topic Meningococcal Vaccine Aged Out No jaden lindsey eligible based on patient's age to complete this topic Pneumococcal Vaccine: Pediatrics (0 to 5 Years) and At-Risk Patients (6 to 49) Years Aged Out No longer eligible b ased on patient's age to complete this topic RSV under 20 months Aged Out No longe r eligible based on patient's age to complete this topic Rotavirus Vaccines Aged Out No longer eligible based on patient's age to complete this topic Procedures Procedure Name Priority Date/Time Associated Diagnosis Comments HEPATITIS C ANTIBODY REFLEX Routine 02/13/2023 7:05 AM EDT HIV ANTIBODY/ANTIGEN ([facility]) Routine 02/13/2023 7:05 AM EDT LIPID PANEL, STANDARD Routine 02/13/2023 7:05 AM EDT from Last 3 Months or Most Recently Relevant to Health Maintenance Results * Hepatitis C Antibody Reflex (02/13/2023 7:05 AM EDT) Pathologist [facility] Hepatitis C Antibody Nonreactive Nonreactive [facility] Comment:Antibodies to HCV no t detected; does not exclude early acuteHCV infection. 02/13/2023 7:05 AM EDT 02/13/2023 11:22 AM EDT [facility] External Provider LAB BLO OD ORDERABLES Final Result Performing Organization Address [facility]/ZIP Co de Phone Number [facility] [address] [place] [address] [phone] * HIV Ab/Ag ([facility]) (02/13/2023 7:05 AM EDT) [facility] HIV AB/AG Nonreactive Nonreactive [facility] Comment:HIV-1 p24 Ag and/or HIV-1/HIV-2 Ab not detected.A test result that is nonreactive does not exclude thepossibility of exposure to or infection with HIV-1 and/orHIV-2. Nonreactive results in this assay for individualswith prior exposure to HIV-1 and/or HIV-2 may be due toantigen and antibody levels that are below the limit ofdetection of this assay.The [employer] HIV Ag/Ab Combo assay result andsupplemental assay results should be interpreted inconjunction with the patient's clinical presentation,history and other laboratory results. If the results areinconsistent with clinical evidence, additional testing issuggested to confirm the result. 02/13/2023 7:05 AM EDT 02/13/2023 11:22 AM EDT [facility] External Provider LAB BLO OD ORDERABLES Final Result Performing Organization Address [facility] Co de Phone Number [facility] [address] [place] [address] [phone] * Lipid Panel, Standard (02/13/2023 7:05 AM EDT) [facility] Triglycerides 136 mg/dL [facility] Comment:Desirable Triglyceri de: less than 150 mg/dLBorderline High Triglyceride 150-199 mg/dLHigh Triglyceride: 200-499 mg/dLVery High Triglyceride: greater than or equal to 5OO mg/dL Cholesterol 200 mg/dL [facility] Comment:Desirable Cholestero l: less than 200 mg/dLBorderline High Cholesterol: 200-239 mg/dLHigh Cholesterol: greater than 239 mg/dL LDL Cholesterol Calculated 135 mg/dl [facility] Comment:Desirable LDL: less than 100 mg/dLNear Optimal/Above Optimal LDL: 110- 129 mg/dLBorderline High LDL: 130-159 mg/dLHigh LDL: 160-189 mg/dLVery High LDL: greater than or equal to 190 mg/dL HDL Cholesterol 38 mg/dL [facility] Comment:Desirable HDL: great er than 40 mg/dL Note: This HDL assay may give artificially low results in patients with liver disease. 02/13/2023 7:05 AM EDT 02/13/2023 11:22 AM EDT us [facility] External Provider LAB BLO OD ORDERABLES Final Result [facility] [address] [place] [phone] from Last 3 Months or Most Recently Relevant to Health Maintenance Insurance [facility] C3 HSN FULL Care Teams Printing Sales Representative Relationship Specialty Start Date End Date Dolly Cruz MD [address] [place] [phone] PCP - General Internal Medicine 01/15/23
--- NOTE | 2025-05-08 08:27 | ED_ITS ---
HPI - Skin/Abscess/Foreign Bdy General Chief complaint: Skin/Abscess/Foreign Body Stated complaint: Possible cyst under his armpit Time Seen by Provider: 05/08/25 07:58 Source: patient and RN notes reviewed Mode of arrival: ambulatory Limitations: no limitations History of Present Illness ED Provider: Kaylie Guajardo PA-C HPI narrative: This is a 45-year-old male, with a history of GERD, who presents emergency department with concerns of left axillary swelling x2-3 weeks. Patient reports that he noticed a small lump in his left axilla that has since increased in size and pain. He has been taking Tylenol multiple times a day without any relief. He states that he had a similar problems several years ago and was seen by surgeon where they excised the cyst and has not had any problems since. He denies any fevers or chills. He denies taking any medications this morning. No other complaints or concerns at this time. MD complaint: abscess/boil Onset (ago): week(s) Location: LUE Severity: moderate Quality: aching Pain Consistency: constant Relieving factors: other (Warm compresses) Exacerbating factors: palpation and rest Context: none Associated symptoms: denies other symptoms Treatments prior to arrival: none Related Data Home Medications ?Medication ?Instructions ?Recorded ?Confirmed escitalopram oxalate 5 mg tablet 5 mg PO DAILY 0 05/12/24 (Lexapro) acetaminophen 650 mg 650 mg PO Q8H PRN Pain 01/2905/12/24 tablet,extended release (Tylenol 8 Hour) baclofen 20 mg tablet 20 mg PO TID 07/09/22 cholecalciferol (vitamin D3) 25 25 mcg PO DAILY 05/12/24 mcg (1,000 unit) capsule duloxetine 20 mg capsule,delayed 20 mg PO DAILY 05/12/24 release (Cymbalta) gabapentin 100 mg capsule 100 mg PO BEDTIME 07/09/22 0 05/12/24 multivitamin 1 tab PO DAILY 07/09/22 08/05/28 carbamide peroxide 6.5 % ear drops 0 drp otic (ears) 0 04/10/23 05/12/24 (Ear Drops (carbamide peroxide)) Previous Rx's ?Medication ?Instructions ?Recorded famotidine 40 mg tablet 40 mg PO DAILY #30 tabs 12/04 06/26 omeprazole 20 mg capsule,delayed 20 mg PO DAILY #30 ca ps 12/31/21 release simethicone 125 mg chewable tablet 125 mg PO TID-QID P RN abdominal 12/31/21 (Gas Relief (simethicone)) distention #90 tabs sucralfate 1 gram tablet 1 g PO QID #90 tabs 07/25/22 methylcellulose (laxative) 500 mg 500 mg PO TID #90 ta bs 03/10/23 tablet (Citrucel) oxycodone-acetaminophen 5 mg-325 1 tab PO Q6H PRN pain #10 tabs 05/28/23 mg tablet cephalexin 500 mg capsule 500 mg PO QID 10 days #40 ca ps 05/07/24 oxycodone 5 mg tablet 5 mg PO Q6H PRN pain #12 tab s 05/07/24 sulfamethoxazole 800 1 tab PO BID 10 days #20 tab s 05/07/24 mg-trimethoprim 160 mg tablet (Bactrim DS) cephalexin 500 mg capsule 500 mg PO Q8H 7 days #21 cap s 06/27/24 doxycycline hyclate 100 mg tablet 100 mg PO BID 7 days #14 tabs 06/27/24 acetaminophen 500 mg tablet 1,000 mg (2 x 500 mg) PO Q 8H PRN 05/08/25 (Tylenol Extra Strength) pain #30 tabs cephalexin 500 mg capsule 500 mg PO QID 7 days #28 cap s 05/08/25 doxycycline hyclate 100 mg capsule 100 mg PO BID 7 day s #14 caps 05/08/25 morphine 15 mg immediate release 15 mg PO Q6H PRN jerome re pain 05/08/25 tablet (scale score 7-10) #5 tabs Allergies Allergy/AdvReac Type Severity Reaction Status Date / Time ibuprofen AdvReac Gastrointestinal Verified 05/08/25 07:52 Hemorrhage Review of Systems Review of Systems: Yes all other systems are reviewed and are negative Constitutional: Constitutional: Reports as per [facility] Past Medical History Medical History Scalp cyst Hx of sleep apnea GERD (gastroesophageal reflux disease) Anxiety and depression Joint pain Chronic recurrent pilonidal cyst Epigastric abdominal pain Stomach tumor (benign) Surgical History History of excision of pilonidal cyst Hx of colonoscopy (~12/2020) History of esophagogastroduodenoscopy (EGD) Family History Family History Father Prostate cancer Mother Diabetes Maternal Grandmother Breast cancer Social History Social History Household Members: Spouse and Children Alcohol intake: never Patient Tobacco Use Status: Never used Tobacco Substance Use Type: Marijuana Advance Directives: No Advance Directives Information Provided: Yes 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al status: unemployed 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: right hand Physical Exam Vital Signs: Vital Signs: Last Vital Signs Temp 97.8 F 05/08/25 07:50 Pulse 84 05/08/25 07:50 Resp 18 05/08/25 07:50 BP 136/70 05/08/25 07:50 Pulse Ox 96 05/08/25 07:50 O2 Del Method Room Air 05/08/25 07:50 BMI result Body Mass Index 42.2 Const: General: cooperative, comfortable and no acute distress Orientation/consciousness: patient oriented x3 Limitations: no limitations HEENT: Head: Yes normal to inspection, Yes normocephalic and Yes atraumatic Ears: hearing grossly normal bilaterally General nose exam: Normal external nose present Face and sinus: Yes normal facial exam Mouth: Normal oral and palatal mucosa present, oropharynx normal and moist mucous membranes Throat: Yes posterior oropharynx normal Eyes: General: appearance normal, both eyes and all related structures Eyelids: Yes eyelids normal Conjunctivae: conjunctivae normal Sclerae: sclerae normal Pupils: Equal, round and reactive pupils present EOM: EOMs intact bilaterally Neck: Neck: Yes normal visual inspection, Yes full ROM and Yes no lymphadenopa thy Lymphatic: no lymphadenopathy noted Chest: Chest palpation & inspection: normal inspection of the chest Resp: Effort & Inspection: normal respiratory effort and able to speak in complete sentences Auscultation: clear to auscultation bilaterally, no crackles, no rales, no rhonchi and no wheezes Cardio: Rate: regular rate Rhythm: regular rhythm Heart sounds: S1 normal heart sound present and S2 normal heart sound present GI: Inspection: Yes normal to inspection Skin: General skin exam: no rashes or lesions noted Trauma: no lacerations or abrasions Wounds: no wounds Neuro: General: patient oriented x3 and moves all extremities Cranial nerves: Yes Equal, round and reactive pupils present Extrem: Other: Left axilla with 2 x 2 cm area of induration and warmth. Slightly erythematous, slight fluctuance. Tender to palpation. General: Yes normal to inspection Right upper extremity: normal to inspection Right lower extremity: normal to inspection Left lower extremity: normal to inspection Medical Decision Making Medical Decision Making [facility] Narrative: This is a 45-year-old male, with a history of GERD, who presents emergency department for evaluation of lump in his left axilla which started several weeks ago, worsening over the last several days. On arrival, vital signs within normal limits. He is speaking in full sentences under no acute distress. Physical exam findings concerning for cellulitis versus abscess. I discussed with patient that it would be in his best interest to have this incised and drained today as there is some fluctuance however patient would like to trial a course of antibiotics and warm compresses. He will attempt to follow-up with the surgical office who he saw several years ago. I also referred him to our surgeons. I discussed with patient that he may need to return to have this incised and drained. He understands this, and will return if his symptoms worsen. Patient given strict return precautions. Patient is unable to take any NSAIDs due to GI hemorrhage therefore advised to continue taking Tylenol. Also given short course of morphine. Medicated with 1st dose of Keflex and doxycycline as well as given Tylenol and morphine in the department. He is not driving home. Patient given strict return precautions. Patient stable for discharge. Differential Diagnosis Differential Diagnoses: The differential diagnosis associated with the presentation includes Cellulitis, cyst, abscess, hydradenitis suppurativa Discharge Plan Discharge Clinical Impression: Cellulitis of axilla, Abscess Patient Disposition: Home, Self-Care Instructions: Cellulitis (ED) Additional Instructions: You were seen in the emergency department due to swelling in your left under arm. Your exam is concerning for a skin infection and developing abscess. I offered to incise and drain this region however you deferred this treatment at this time, and would like to trial a course of antibiotics. You were made aware that this may not work in you may need to return for an incision and drainage. Doxycycline as an antibiotic to be taken twice a day for the next 7 days. Please be advised that this can cause sun sensitivity, wear protective clothing when outside. Keflex as another antibiotic to be taken 4 times a day. Apply warm compresses to the area at least 6 times per day. You were given your 1st dose of antibiotics today, please resume this afternoon. Please continue taking Tylenol. You may take 500 to a 1000 mg of Tylenol every 8 hours. Because you can not take NSAIDs (ibuprofen), I am giving you a short course of oxycodone, take this as prescribed. Please be advised that this can cause drowsiness, do not drink alcohol or drive while taking this medication. Please be advised that this can also cause constipation. If any new or worsening symptoms occur including but not limited to increased swelling, pain, fevers, please seek emergent care. Please call the surgical office today, you may also call the surgeon who you followed up with at [facility] several years ago. Prescriptions: New acetaminophen [Tylenol Extra Strength] 500 mg tablet 1,000 mg PO Q8H PRN (Reason: pain) Qty: 30 0RF doxycycline hyclate 100 mg capsule 100 mg PO BID 7 Days Qty: 14 0RF cephalexin 500 mg capsule 500 mg PO QID 7 Days Qty: 28 0RF morphine 15 mg tablet 15 mg PO Q6H PRN (Reason: severe pain (scale score 7-10)) Qty: 5 0RF Rx Instructions: Partial Fill upon patient request. No Action sucralfate 1 gram tablet 1 g PO QID Qty: 90 1RF Citrucel 500 mg tablet 500 mg PO TID Qty: 90 5RF cephalexin 500 mg capsule 500 mg PO QID 10 Days Qty: 40 0RF sulfamethoxazole-trimethoprim [Bactrim DS] 800-160 mg tablet 1 tab PO BID 10 Days Qty: 20 0RF oxycodone 5 mg tablet 5 mg PO Q6H PRN (Reason: pain) Qty: 12 0RF Rx Instructions: Partial Fill upon patient request. doxycycline hyclate 100 mg tablet 100 mg PO BID 7 Days Qty: 14 0RF cephalexin 500 mg capsule 500 mg PO Q8H 7 Days Qty: 21 0RF oxycodone-acetaminophen 5-325 mg tablet 1 tab PO Q6H PRN (Reason: pain) Qty: 10 0RF Rx Instructions: Partial Fill upon patient request. acetaminophen [Tylenol 8 Hour] 650 mg tablet extended release 650 mg PO Q8H PRN (Reason: Pain) escitalopram oxalate [Lexapro] 5 mg tablet 5 mg PO DAILY simethicone [Gas Relief (simethicone)] 125 mg tablet,chewable 125 mg PO TID-QID PRN (Reason: abdominal distention) Qty: 90 2RF omeprazole 20 mg capsule,delayed release(DR/EC) 20 mg PO DAILY Qty: 30 11RF famotidine 40 mg tablet 40 mg PO DAILY Qty: 30 5RF gabapentin 100 mg capsule 100 mg PO BEDTIME duloxetine [Cymbalta] 20 mg capsule,delayed release(DR/EC) 20 mg PO DAILY baclofen 20 mg tablet 20 mg PO TID multivitamin Tablet 1 tab PO DAILY cholecalciferol (vitamin D3) 25 mcg (1,000 unit) capsule 25 mcg PO DAILY Ear Drops (carbamide peroxide) 6.5 % drops 0 drp otic (ears) Referrals: [facility] [Provider Group, General Surgery] Print Language: Armenian
[2025-05-08] MEDS: Morphine Sulfate Immed Release 15 MG TABLET PO (08:58)
[2025-05-08 09:06] VITALS: BP 136/70; PULSE 84; RESP 18; TEMP 36.6; O2SAT 96
== END 2025-05-08 09:06 | disposition home or self-care (01) ==
PROVIDERS: Emergency Provider Emergency Medicine Emergency Medical Services
DX: L03.112 Cellulitis of left axilla (principal); L02.412 Cutaneous abscess of left axilla; M79.89 Other specified soft tissue disorders; K21.9 Gastro-esophageal reflux disease without esophagitis
CPT/HCPCS: 99283

== ENCOUNTER 2025-06-11 10:42 | Emergency (ER) | payer MEDICAID, SELFPAY ==
[2025-06-11 10:46] VITALS: BP 145/95; RESP 16; TEMP 36.9; O2SAT 97; BMI 40.7
--- OUTSIDE RECORDS SUMMARY | 2025-06-11 11:38 | XMS_ITS | Clinical Summary ---
Author Organization [employer] Address [address] [place] [address] Care Team Providers Care Jewelry Facer Name Role Phone Dolly Cruz MD Primary [...] left great toe,no trauma,no erythema,no swelling -saw railroad watchman x this before and per pt was r/o to have any autoimmune and no gout. -continue tylenol prn -topical diclofenac prn -XR referred today -referred to [facility] today due to chronicity Obstructive sleep apnea [...] info x BH and psychiatric services at [facility] and gave info to pt to call [...] diet and exercise,discussed healthy life style -discussed crop or grain farmworker referral -referred already-pd to get a call -will consdier GLP1? At future visit if no weight loss -but wnl hb1AC -may consider bariatric surgery referral -will discuss at future apt Assessment & Plan (02/06/2023 7:09 PM EDT): Advised pt to improve diet and exercise,discussed healthy life style -discussed crop or grain farmworker referral -referred today -will discuss about SANYA symptoms at next apt -will consdier GLP1? Fibromyalgia 02/06/2023 Assessment & Plan (03/09/2023 6:33 PM EDT): Pt f w railroad watchman x it--from last visit note obtained by Zaria 01/29/2021? Pt used to take escitalopram,mirtazapine? But pt reports seen recently--will try to get last visit report again -requested today to PATRIZIA -tylenol prn -continue care w railroad watchman -pt will benefit from depression tx -as doc in depression problem Assessment & Plan (02/06/2023 9:49 PM EDT): Pt f w railroad watchman x it--from last visit note obtained by JIMY today in 01/29/2021? Pt used to take escitalopram,mirtazapine? But pt reports seen recently -tylenol prn -continue care w railroad watchman -pt will benefit from depression tx -as [...] 6:37 PM EDT): Possible rosacea -referred to electrical engineering draftsperson -has apt x this month Assessment & Plan (02/06/2023 7:13 PM EDT): Possible rosacea -referred to electrical engineering draftsperson today Health care maintenance 02/06/2023 Assessment & [...] Antibody Reflex (02/13/2023 7:05 AM EDT) Pathologist [facility] Hepatitis C Antibody Nonreactive Nonreactive [facility] Comment:Antibodies to HCV no t detected; does not exclude early acuteHCV infection. 02/13/2023 7:05 AM EDT 02/13/2023 11:22 AM EDT [facility] External Provider LAB BLO OD ORDERABLES Final Result Performing Organization Address [facility]/ZIP Co de Phone Number [facility] [address] [place] [address] [phone] HIV Ab/Ag ([facility]) (02/13/2023 7:05 AM EDT) [facility] HIV AB/AG Nonreactive Nonreactive [facility] Comment:HIV-1 p24 Ag and/or HIV-1/HIV-2 Ab not detected.A test result that is nonreactive does not exclude thepossibility of exposure to or infection with HIV-1 and/orHIV-2. Nonreactive results in this assay for individualswith prior exposure to HIV-1 and/or HIV-2 may be due toantigen and antibody levels that are below the limit ofdetection of this assay.The [employer] HIV Ag/Ab Combo assay result andsupplemental assay results should be interpreted inconjunction with the patient's clinical presentation,history and other laboratory results. If the results areinconsistent with clinical evidence, additional testing issuggested to confirm the result. 02/13/2023 7:05 AM EDT 02/13/2023 11:22 AM EDT [facility] External Provider LAB BLO OD ORDERABLES Final Result Performing Organization Address [facility] Co de Phone Number [facility] [address] [place] [address] [phone] * Lipid Panel, Standard (02/13/2023 7:05 AM EDT) [facility] Triglycerides 136 mg/dL [facility] Comment:Desirable Triglyceri de: less than 150 mg/dLBorderline High Triglyceride 150-199 mg/dLHigh Triglyceride: 200-499 mg/dLVery High Triglyceride: greater than or equal to 5OO mg/dL Cholesterol 200 mg/dL [facility] Comment:Desirable Cholestero l: less than 200 mg/dLBorderline High Cholesterol: 200-239 mg/dLHigh Cholesterol: greater than 239 mg/dL LDL Cholesterol Calculated 135 mg/dl [facility] Comment:Desirable LDL: less than 100 mg/dLNear Optimal/Above Optimal LDL: 110- 129 mg/dLBorderline High LDL: 130-159 mg/dLHigh LDL: 160-189 mg/dLVery High LDL: greater than or equal to 190 mg/dL HDL Cholesterol 38 mg/dL [facility] Comment:Desirable HDL: great er than 40 mg/dL Note: This HDL assay may give artificially low results in patients with liver disease. 02/13/2023 7:05 AM EDT 02/13/2023 11:22 AM EDT us [facility] External Provider LAB BLO OD ORDERABLES Final Result [facility] [address] [place] [phone] from Last 3 Months or Most Recently Relevant to Health Maintenance Insurance [facility] C3 HSN FULL Care Teams Jewelry Facer Relationship Specialty Start Date End Date Dolly Cruz MD [address] [place] [phone] PCP - General Internal Medicine 01/15/23
[2025-06-11 11:42] VITALS: BP 120/65; PULSE 81; RESP 16; O2SAT 98
--- NOTE | 2025-06-11 11:55 | ED.BACK ---
HPI - Back Pain/Injury General Chief Complaint: Back Pain/Injury Stated Complaint: severe upper back pain Time Seen by Provider: 06/11/25 11:34 Source: patient Mode of arrival: ambulatory Limitations: no limitations History of Present Illness ED Provider: HPI Narrative: 45-year-old male presenting with neck pain when he turns to the right radiates to his mid back, no numbness or weakness in upper or lower extremities, no chest pain no shortness of breath no rashes reported. Initially he woke up and he was having some discomfort but today it became worse. Related Data Home Medications ?Medication ?Instructions ?Recorded ?Confirmed escitalopram oxalate 5 mg tablet 5 mg PO DAILY 08/29/20 05/12/24 (Lexapro) acetaminophen 650 mg 650 mg PO Q8H PRN Pain 01/29/21 05/12/24 tablet,extended release (Tylenol 8 Hour) baclofen 20 mg tablet 20 mg PO TID 07/09/22 05/12/24 cholecalciferol (vitamin D3) 25 25 mcg PO DAILY 07/09/22 05/12/24 mcg (1,000 unit) capsule duloxetine 20 mg capsule,delayed 20 mg PO DAILY 07/09/22 05/12/24 release (Cymbalta) gabapentin 100 mg capsule 100 mg PO BEDTIME 07/09/22 05/12/24 multivitamin 1 tab PO DAILY 07/09/22 05/12/24 carbamide peroxide 6.5 % ear drops 0 drp otic (ears) 04/10/23 05/12/24 (Ear Drops (carbamide peroxide)) Previous Rx's ?Medication ?Instructions ?Recorded famotidine 40 mg tablet 40 mg PO DAILY #30 tabs 12/31/21 omeprazole 20 mg capsule,delayed 20 mg PO DAILY #30 caps 12/31/21 release simethicone 125 mg chewable tablet 125 mg PO TID-QID PRN abdominal 12/31/21 (Gas Relief (simethicone)) distention #90 tabs sucralfate 1 gram tablet 1 g PO QID #90 tabs 07/25/22 methylcellulose (laxative) 500 mg 500 mg PO TID #90 tabs 03/10/23 tablet (Citrucel) oxycodone-acetaminophen 5 mg-325 1 tab PO Q6H PRN pain #10 tabs 05/28/23 mg tablet cephalexin 500 mg capsule 500 mg PO QID 10 days #40 caps 05/07/24 oxycodone 5 mg tablet 5 mg PO Q6H PRN pain #12 tabs 05/07/24 sulfamethoxazole 800 1 tab PO BID 10 days #20 tabs 05/07/24 mg-trimethoprim 160 mg tablet (Bactrim DS) cephalexin 500 mg capsule 500 mg PO Q8H 7 days #21 caps 06/27/24 doxycycline hyclate 100 mg tablet 100 mg PO BID 7 days #14 tabs 06/27/24 acetaminophen 500 mg tablet 1,000 mg (2 x 500 mg) PO Q8H PRN 05/08/25 (Tylenol Extra Strength) pain #30 tabs cephalexin 500 mg capsule 500 mg PO QID 7 days #28 caps 05/08/25 doxycycline hyclate 100 mg capsule 100 mg PO BID 7 days #14 caps 05/08/25 morphine 15 mg immediate release 15 mg PO Q6H PRN severe pain 05/08/25 tablet (scale score 7-10) #5 tabs capsaicin 0.035 % topical patch 1 patch topical TID 7 days #10 ea 06/11/25 diazepam 2 mg tablet (Valium) 2 mg PO TID PRN spasms 2 days #6 06/11/25 tabs prednisone 20 mg tablet 40 mg (2 x 20 mg) PO DAILY 5 days 06/11/25 #10 tabs Allergies Allergy/AdvReac Type Severity Reaction Status Date / Time ibuprofen AdvReac Gastrointestinal Verified 06/11/25 10:48 Hemorrhage Review of Systems Constitutional: Constitutional: Reports as per [facility] Past Medical History Medical History Scalp cyst Hx of sleep apnea GERD (gastroesophageal reflux disease) Anxiety and depression Joint pain Chronic recurrent pilonidal cyst Epigastric abdominal pain Stomach tumor (benign) Surgical History History of excision of pilonidal cyst Hx of colonoscopy (~12/2020) History of esophagogastroduodenoscopy (EGD) Family History Family History Father Prostate cancer Mother Diabetes Maternal Grandmother Breast cancer Social History Social History Household Members: Spouse and Children Alcohol intake: never Patient Tobacco Use Status: Never used Tobacco Substance Use Type: Marijuana Advance Directives: No Advance Directives Information Provided: Yes Do you have a plan to hurt others: No Plan 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al status: unemployed 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: right hand Physical Exam Vital Signs: Vital Signs: Last Vital Signs Temp 98.4 F 06/11/25 10:46 Pulse 81 06/11/25 11:42 Resp 16 06/11/25 11:42 BP 120/65 06/11/25 11:42 Pulse Ox 98 06/11/25 11:42 O2 Del Method Room Air 06/11/25 11:42 BMI result Body Mass Index 40.7 Const: Other: Gen: ?Overall well-appearing patient Neck: Supple, no LAD CV: RRR, no obvious murmurs appreciated, radial pulses +2 bilaterally Resp: ?No wheezing rales rhonchi no stridor moving air well Abd: ?Bowel sounds are present, no tenderness no rebound no rigidity MSK: FROM, strength 5/5 all extremities, trigger points along his rhomboids and trapezii area, for trigger points identified along right side paraspinal no midline tenderness Skin: Warm, dry, intact, Neuro: ?Alert and oriented x3, moving upper and lower extremities symmetrically, no obvious facial asymmetry noted, radial ulnar median motor and sensory intact bilateral upper extremities Medications Administered Discontinued Medications Generic Name Dose Route Start Last Admin Trade Name Dagoq PRN Reason Stop Dose Admin Dexamethasone 10 mg 06/11/25 11:55 06/11/25 12:10 Dexamethasone 2 Mg Tablet PO 06/11/25 11:56 10 mg ONCE ONE Administration Diazepam 2 mg 06/11/25 11:55 06/11/25 12:10 Diazepam 2 Mg Tablet PO 06/11/25 11:56 2 mg ONCE ONE Administration Ketorolac Tromethamine 15 mg 06/11/25 11:55 06/11/25 12:10 Ketorolac Tromethamine 15 Mg/Ml Vial IM 06/11/25 11:56 15 mg ONCE ONE Administration Lidocaine 1 patch 06/11/25 12:01 06/11/25 12:10 Lidocaine 4 % Patch Adh..Patch TRANSDERMA 06/11/25 12:02 1 patch ONCE ONE Administration Protocol Lidocaine HCl 10 ml 06/11/25 12:01 06/11/25 12:11 Lidocaine Hcl 1 % 20 Ml Vial INFILTRATI 06/11/25 12:02 10 ml ONCE ONE Administration Medical Decision Making Medical Decision Making [facility] Narrative: Presenting with atraumatic torticollis, trigger point injection offered, verbal consent obtained see my procedure note, we will continue with other supportive measures, otherwise no neurovascular findings and this is not related to ACS or pneumothorax reassuring physical examination Differential Diagnosis Differential Diagnoses: The differential diagnosis associated with the presentation includes (Cervical myelopathy, cauda equina, diskitis osteomyelitis, ACS, trauma) Procedures Procedure Narrative Procedure Narrative: CPT 12945: ? 2 muscle groups injected single or multiple trigger points Time-out: A time-out was performed to confirm the correct patient, procedure, site, and consent. Technique: The patient was placed in a [sitting] position. The skin overlying the trigger points was cleansed with [alcohol prep pad]. The trigger points were palpated and marked. Stabilization and Injection: The provider stabilized the muscle tissue by pinching the trigger point between their fingers. Using [needle size and type, e.g., a 25-gauge, 1.5-inch needle], the medication was injected with a fanning motion into the affected muscles. Medication: A solution of ?[ 10 mL of 1% lidocaine ] was injected. Muscles Injected: A total of [ # 2] muscles were injected on the [right/left] side, including the: Rhomboid] Levator Scapulae Post-Procedure: Patient Response: The patient tolerated the procedure well and reported [significant] improvement in their pain. Follow-up: The injection sites were cleaned, and a bandage was applied. The patient was instructed to [ apply ice for 15 minutes as needed] and advised on potential post-injection soreness. Assessment and Plan: The injection was successful, resulting in ?decreased pain and improved range of motion. Follow-up will be scheduled as needed. Discharge Plan Discharge Clinical Impression: Acute torticollis Patient Disposition: Home, Self-Care Instructions: Neck Pain (ED) Additional Instructions: Continue with gentle [id number] exercises and strengthening exercises, ice the area that it was injected, watch out for any infection after injection this is very unlikely but spreading redness discharge of pus etc. 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 cut him into strips of [address] of the area of spasm they were great, Valium use before bedtime or when you are resting it will make you drowsy but it is good medicine for spasm, follow up with the PCP worsening issues concerns come back to the ER Prescriptions: New prednisone 20 mg tablet 40 mg PO DAILY 5 Days Qty: 10 0RF diazepam [Valium] 2 mg tablet 2 mg PO TID PRN (Reason: spasms) 2 Days Qty: 6 0RF capsaicin 0.035 % adhesive patch,medicated 1 patch topical TID 7 Days Qty: 10 0RF No Action sucralfate 1 gram tablet 1 g PO QID Qty: 90 1RF Citrucel 500 mg tablet 500 mg PO TID Qty: 90 5RF cephalexin 500 mg capsule 500 mg PO QID 10 Days Qty: 40 0RF sulfamethoxazole-trimethoprim [Bactrim DS] 800-160 mg tablet 1 tab PO BID 10 Days Qty: 20 0RF oxycodone 5 mg tablet 5 mg PO Q6H PRN (Reason: pain) Qty: 12 0RF Rx Instructions: Partial Fill upon patient request. doxycycline hyclate 100 mg tablet 100 mg PO BID 7 Days Qty: 14 0RF cephalexin 500 mg capsule 500 mg PO Q8H 7 Days Qty: 21 0RF oxycodone-acetaminophen 5-325 mg tablet 1 tab PO Q6H PRN (Reason: pain) Qty: 10 0RF Rx Instructions: Partial Fill upon patient request. acetaminophen [Tylenol Extra Strength] 500 mg tablet 1,000 mg PO Q8H PRN (Reason: pain) Qty: 30 0RF doxycycline hyclate 100 mg capsule 100 mg PO BID 7 Days Qty: 14 0RF cephalexin 500 mg capsule 500 mg PO QID 7 Days Qty: 28 0RF morphine 15 mg tablet 15 mg PO Q6H PRN (Reason: severe pain (scale score 7-10)) Qty: 5 0RF Rx Instructions: Partial Fill upon patient request. acetaminophen [Tylenol 8 Hour] 650 mg tablet extended release 650 mg PO Q8H PRN (Reason: Pain) escitalopram oxalate [Lexapro] 5 mg tablet 5 mg PO DAILY simethicone [Gas Relief (simethicone)] 125 mg tablet,chewable 125 mg PO TID-QID PRN (Reason: abdominal distention) Qty: 90 2RF omeprazole 20 mg capsule,delayed release(DR/EC) 20 mg PO DAILY Qty: 30 11RF famotidine 40 mg tablet 40 mg PO DAILY Qty: 30 5RF gabapentin 100 mg capsule 100 mg PO BEDTIME duloxetine [Cymbalta] 20 mg capsule,delayed release(DR/EC) 20 mg PO DAILY baclofen 20 mg tablet 20 mg PO TID multivitamin Tablet 1 tab PO DAILY cholecalciferol (vitamin D3) 25 mcg (1,000 unit) capsule 25 mcg PO DAILY Ear Drops (carbamide peroxide) 6.5 % drops 0 drp otic (ears) Print Language: Prydeinig
[2025-06-11] MEDS: Lidocaine 4 % Patch ADH..PATCH 1 PATCH TRANSDERMA (12:10)
[2025-06-11] MEDS: Lidocaine HCl 1 % 20 ML VIAL 10 ML INFILTRATI (12:11)
[2025-06-11 12:36] VITALS: BP 120/65; PULSE 81; RESP 16; TEMP 36.8; O2SAT 98
== END 2025-06-11 12:36 | disposition home or self-care (01) ==
PROVIDERS: Emergency Provider Emergency Medicine
DX: M43.6 Torticollis (principal); M54.50 Low back pain, unspecified; Z79.899 Other long term (current) drug therapy
CPT/HCPCS: 20552; 96372; 99283; 99284; J1885; J2003; J8540